=== PATIENT | male | born 1965 | race Caucasian/White ===

== ENCOUNTER → 2019-01-18 10:44 | Outpatient (CLI) | payer OTHER, SELFPAY ==
--- NOTE | 2019-01-18 | CA_ITS ---
APPROVED REPORT Exam: Pharmacologic Technologist: armen valenzuela, Ht: 6 ft 4 in Wt: 320 lbs BSA: 2.71 m2 HR: 88 bpm BP: 127/77 mmHg Indications: CP,SOB Medical History Medications: Isosorbide,,,,, Metoprolol,,,,, Asa,,,,, Losartan,,,,, Pantoprazole,,,,, Lasix,,,,, INSULIN,,,,, CloPIdogrel,,,,, Cyclobenzaprine,,,,, Nitro,,,,, Stagliptin,,,,, Ergocaliferol,,,,, Allergies: Benzapril, Simvastatin Stress Test Details Test: LEXISCAN HR Resting HR: 97 bpm Max Heart Rate (APMHR): 167 bpm Max HR Achieved: 113 bpm Target HR (85% APMHR): 141 bpm % of APMHR: 67 Recovery HR: 97 bpm BP Resting BP: 127/77 mmHg Max BP: 140/79 mmHg Recovery BP: 140.0/81.0 mmHg ECG Resting ECG: NSR Clinical Exercise duration: 04:00 min Highest Stage Achieved: Stress ECG Conclusion Lexiscan portion completed. Patient denied any complaints during peak infusion. Symptoms: NO complaints of any issues during peak infusion. Arrhythmias/Ectopy: Occ PVC. ST-T Changes: Less than 1.5mm ST Depression. Images to follow. Electronically signed by : Silver Hurtado, 01/22/2019 14:46:39
--- NOTE | 2019-01-18 10:47 | CA_ITS ---
[facility] RADIOLOGICAL CONSULTATION Patient Name : Alec Ramirez X-RAY # : [id number] Physician: KATY SHIELDS AGE: 53Y : 1965 00:00:00 ( M ) Exam : CA ECHO DOPPLER COMPLETE ACC # : [id number] Study Date : 01/18/2019 13:52:41 Patient Class : O FINAL REPORT CLINICAL DATA: FINDINGS: TRANSCRIBED REPORT EXAM: Comprehensive 2D, Doppler, and color-flow Echocardiogram Poll Clerk: Elena Collado CRT Ht: 6 ft 4 in Wt: 339lbs BSA: 2.77 BP: 137/84 mmHg Indications: Obesity, CAD, GERD, CABG, TDE, CP 2D Dimensions LVOT 1.99 cm (M/F) 1.5-2.5 M-Mode Dimensions RVDd 1.83 cm (0.9-2.6) LVDd 5.79 cm (3.5-5.7) LVDs 4.23 cm (3.5-5.7) IVSd 1.45 cm (0.6-1.1) PWd 0.57 cm (0.6-1.1) EF (Teich) 51.80% FS 26.90% EDV (Teich) 165.90 mL ESV (Teich) 79.90 mL LV Diastology E/A Ratio 0.68 Mitral Valve MV A Velocity 71.00 (40-130 cm/s) Electronically signed by : IMPRESSION: Dictated by at Transcribed by at
--- NOTE | 2019-01-18 10:50 | NM_ITS ---
APPROVED REPORT Exam: Nuclear Stress Test Indication: Chest pain, SOB, Fatigue, HTN, DM, CAD, CABG, High cholesterol, Tobacco use, Family history Patient Location: Outpatient Stress Tech: Alyssa ClarkeMohit [place] Tech:Jeanne Vega, ARRT, RT (R)(N) Ht: 6 ft 4 in Wt: 320 lbs HR: 88 bpm BP: 127/77 mmHg BSA: 2.71 m2 BMI: 38.9 History: Chest pain, SOB, Fatigue, HTN, DM, CAD, CABG, High cholesterol, Tobacco use, Family history Procedure: Patient received a 0.4 mg of intravenous Lexiscan, resting heart rate 88 bpm, resting blood pressure 127/77 mmHg, with Lexiscan maximum heart rate achived was 112 bpm which is % of the maximum predicted heart rate and blood pressure was 140/79 mmHg. With Lexiscan, patient denied any complaint of chest pain. Cardiac Stress and Resting SPECT Images: Cardiac Stress and Resting SPECT images were obtained using technetium 99m Myoview 32.1 mCi stress and 10.10 mCi at rest. Ejection fraction is low at 42% There is slight decrease activity within the apex on the stress images which becomes normal on the delayed images. No fixed defects are evident. Mild ischemic changes suspected at the apex. Conclusion: Ejection fraction is low at 42% There is slight decrease activity within the apex on the stress images which becomes normal on the delayed images. No fixed defects are evident. Mild ischemic changes suspected at the apex. Electronically signed by : Zechariah Mckeon MD 01/20/2019 15:59:43
--- NOTE | 2019-01-18 12:45 | HMH.ITSHM ---
Current Home Medications as stated by this patient Alec Ramirez or contact center representative. []JANUMET CYCLOBENZAPRINE DICLOFENAC CLOPIDOGREL VITAMIN D2 ATORVASTATIN ISOSORBIDE FUROSEMIDE JARDIANCE LOSARTAN METOPROLOL PANTOPRAZOLE SERTRALINE
== END ==
PROVIDERS: PCP Internal Medicine; Visit Provider Urology
DX: I20.9 Angina pectoris, unspecified (principal); R06.02 Shortness of breath; I25.10 Atherosclerotic heart disease of native coronary artery without angina pectoris; I11.9 Hypertensive heart disease without heart failure
CPT/HCPCS: 78452; 93017; 93306; A9502; J2785

== ENCOUNTER → 2019-10-18 14:37 | Outpatient (CLI) | payer OTHER, SELFPAY ==
[2019-10-18 15:06] LABS: Basophils # 0.1 K/mm3 (0-0.2); Basophils % 1.1 % (0.1-2.0); Eosinophils # 0.2 K/mm3 (0.0-0.4); Eosinophils % 2.7 % (0.1-12.0); Hematocrit 47.8 % (42.0-52.0); Hemoglobin 16.3 g/dL (14.1-18.0); Lymphocytes # 2.8 K/mm3 (0.7-4.5); Lymphocytes % 32.3 % (10-50); Mean Corpuscular HGB Conc 34.2 g/dL (31.8-35.4); Mean Corpuscular Hemoglobin 30.1 pg (27.0-31.2); Mean Platelet Volume 7.5 fl (7.4-10.4); Monocytes # 0.6 K/mm3 (0.1-1.0); Neutrophils # 4.8 K/mm3 (1.8-7.8); Neutrophils % 56.8 % (37.0-80.0); Platelet Count 246 K/mm3 (142-424); Red Blood Count 5.43 M/mm3 (4.60-6.20); Red Cell Distribution Width 13.5 % (11.5-17.5); White Blood Count 8.5 K/mm3 (4.8-10.8)
[2019-10-18 15:27] LABS: Chloride 103 mmol/L (98-107); Sodium 140 mmol/L (136-145)
[2019-10-18 15:28] LABS: Potassium 4.3 mmoL/L (3.5-5.1)
[2019-10-18 15:30] LABS: Blood Urea Nitrogen 22 mg/dl (9-20); Estimated Glomerular Filt Rate 78 ml/min (>60); GFR (African American) 94 ML/MIN (>60)
[2019-10-18 15:31] LABS: Anion Gap 13.3 mEq/L (5-15); Calcium 9.7 mg/dl (8.4-10.2); Carbon Dioxide 28 mmol/L (22.0-30.0); Glucose 106 mg/dl (74-100)
[2019-10-18 15:34] LABS: Troponin I < 0.01 ng/ml (0.00-0.034)
== END ==
PROVIDERS: Visit Provider Nurse Practitioner Family
DX: I20.9 Angina pectoris, unspecified (principal); R06.02 Shortness of breath; E78.2 Mixed hyperlipidemia; R94.31 Abnormal electrocardiogram [ECG] [EKG]; G47.33 Obstructive sleep apnea (adult) (pediatric); I11.9 Hypertensive heart disease without heart failure; I25.708 Atherosclerosis of coronary artery bypass graft(s), unspecified, with other forms of angina pectoris; R53.83 Other fatigue; Z95.5 Presence of coronary angioplasty implant and graft
CPT/HCPCS: 36415; 80048; 84484; 85025

== ENCOUNTER 2019-10-26 08:38 | Day surgery (SDC) | payer OTHER, SELFPAY ==
[2019-10-26] VITALS (13 sets, daily range): BP systolic 119–187; BP diastolic 42–108; PULSE 73–98; RESP 16–20; TEMP 36.6; O2SAT 89–98; BMI 42.8
[2019-10-26 09:36] LABS: Basophils # 0.1 K/mm3 (0-0.2); Chloride 102 mmol/L (98-107); Eosinophils # 0.2 K/mm3 (0.0-0.4); Eosinophils % 2.4 % (0.1-12.0); Hemoglobin 17.8 g/dL (14.1-18.0); Lymphocytes # 2.5 K/mm3 (0.7-4.5); Lymphocytes % 25.4 % (10-50); Mean Corpuscular HGB Conc 34.2 g/dL (31.8-35.4); Mean Corpuscular Hemoglobin 30.1 pg (27.0-31.2); Mean Corpuscular Volume 88.2 fl (80-94); Mean Platelet Volume 7.6 fl (7.4-10.4); Monocytes # 0.6 K/mm3 (0.1-1.0); Monocytes % 6.3 % (1.7-9.3); Neutrophils # 6.3 K/mm3 (1.8-7.8); Neutrophils % 64.9 % (37.0-80.0); Platelet Count 242 K/mm3 (142-424); Potassium 4.5 mmoL/L (3.5-5.1); Red Cell Distribution Width 13.4 % (11.5-17.5); Sodium 141 mmol/L (136-145); White Blood Count 9.7 K/mm3 (4.8-10.8)
[2019-10-26 09:39] LABS: Anion Gap 15.5 mEq/L (5-15); Blood Urea Nitrogen 25 mg/dl (9-20); Calcium 10.2 mg/dl (8.4-10.2); Carbon Dioxide 28 mmol/L (22.0-30.0); Creatinine Clearance Estimated 104 mL/min (50-200); Estimated Glomerular Filt Rate 78 ml/min (>60); GFR (African American) 94 ML/MIN (>60); Glucose 257 mg/dl (74-100)
--- NOTE | 2019-10-26 10:00 | IR_ITS ---
APPROVED REPORT Patient Location: Outpatient PROCEDURES Left heart catheterization Left ventriculogram Selective coronary angiogram Selective engagement of the left internal mammary artery Drug-eluting stent deployment to the mid dominant right coronary INDICATION Coronary artery disease, Angina pectoris class III and IV, History of coronary bypass surgery Informed consent was obtained prior to the procedure. COMPLICATIONS none Estimated Blood Loss: less than 10 mls TECHNIQUE One percent lidocaine used to anesthetize the right groin. The right femoral artery was accessed via the Seldinger technique and a 5 Mauritian sheath was placed in the right femoral artery. A JL 4, JR4 catheter were used to perform left heart catheterization, left ventriculogram selective coronary angiography as well as selective engagement of the left internal mammary artery. At the end of the diagnostic angiogram therapeutic heparin was administered and the 5 Mauritian sheath was exchanged for a 6 Mauritian sheath. A JR4 guide catheter was used to intubate the right coronary artery and a BMW wire was used to traverse the stenosis in the right coronary artery. A 4 mm x 26 mm resolute leilani stent was deployed at 15 sabrina reducing the severe stenosis to 0%. At the end of the procedure the apparatus was removed the groin was reprepped gloves were changed sheath was removed good hemostasis was achieved using Perclose device patient was transferred to the postop holding area stable condition. FLORENTINO-3 flow was present before and after the procedure ANGIOGRAPHIC RESULTS The left main artery Has an ostial 20% stenosis The left anterior descending artery Has proximal 10% luminal irregularities then occluded after large first diagonal artery The circumflex artery Is a nondominant vessel supplying 2 smaller obtuse marginal arteries. The vessel is widely patent The right coronary artery Is a large dominant vessel and has a stent in the proximal segment which is widely patent free of in-stent restenosis with excellent proximal transitioning followed by a 20% distal transitioning. A focal eccentric 70 to 80% stenosis is identified in the mid right coronary artery. The distal vessel was patent with mild to moderate atheromatous plaque. A stent in the distal right coronary artery is widely patent free of in-stent restenosis with excellent proximal distal transitioning The HARRISON ventriculogram reveals Mildly reduced at 45 to 50% The left ventricular end-diastolic pressure 10 mmHg The left internal mammary artery is patent but supplies a subtotally occluded vestigial LAD IMPRESSION Coronary disease as described above Successful stenting of the mid right coronary artery severe disease reduced to 0% with one drug-eluting stent Mildly reduced ejection fraction with normal LVEDP PLAN 1. Dual antiplatelet therapy 2. Risk factor modification 3. Avoidance of tobacco products 4. Cardiac rehabilitation 5. LDL less than 55 Electronically signed by : Silver Hurtado, 10/26/2019 14:37:25
[2019-10-26 14:15] LABS: CATHL Activated Clotting Time > 400 SEC (74-125)
--- NOTE | 2019-10-26 16:02 | HMH.PHACLD ---
Alec Ramirez has received discharge medication counseling on the following medications: PATIENT CURRENTLY ON ASPIRIN [address] DAILY, ATORVASTATIN 10 MG TABLET-5 MG DAILY, CLOPIDOGREL 75 MG DAILY, LOSARTAN 100 MG DAILY, AND METOPROLOL TARTATE 100 MG BID.
== END 2019-10-26 16:01 | disposition home or self-care (01) ==
LOC: CATHLAB 08:40
PROVIDERS: PCP Family Medicine; Visit Provider Internal Medicine
DX: I25.118 Atherosclerotic heart disease of native coronary artery with other forms of angina pectoris (principal); E78.2 Mixed hyperlipidemia; Z72.0 Tobacco use; G47.33 Obstructive sleep apnea (adult) (pediatric); I11.9 Hypertensive heart disease without heart failure; I25.708 Atherosclerosis of coronary artery bypass graft(s), unspecified, with other forms of angina pectoris; I42.9 Cardiomyopathy, unspecified; R94.31 Abnormal electrocardiogram [ECG] [EKG]; Z95.5 Presence of coronary angioplasty implant and graft
CPT/HCPCS: 80048; 85025; 85347; 92928; 93459; 99152; C1725; C1760; C1769; C1876; C1894; C9600; J1644; Q9967

== ENCOUNTER → 2021-06-29 07:21 | Outpatient (CLI) | payer OTHER, SELFPAY ==
--- NOTE | 2021-06-29 07:25 | CT_ITS ---
FINAL REPORT TECHNIQUE: Axial images through the abdomen and pelvis were performed without contrast.This study was performed with techniques to keep radiation doses as low as reasonably achievable, (ALARA). Individualized dose reduction techniques using automated exposure control or adjustment of mA and/or kV according to the patient's size were employed. CLINICAL HISTORY: RT FLANK PAIN,ABD PAIN for about a year. patients states doctors have been unsuccessful dx why he keeps having right sided abd/flank pain. hx of diabetes FINDINGS: ABDOMEN: Visualized lungs demonstrate mild right base atelectasis or scarring.. The heart size is normal. Limited images of the liver demonstrate fatty infiltration. The spleen is normal. No adrenal mass is identified. The aorta is normal in caliber. There is no significant free fluid or adenopathy. There is no nephrolithiasis. There is no hydronephrosis. There is a small umbilical hernia containing fat. PELVIS: The appendix is normal. The urinary bladder is unremarkable. There is no significant free fluid or adenopathy. IMPRESSION: No hydronephrosis or nephrolithiasis. Fatty infiltration of the liver. Reviewed, Interpreted and Dictated by Vinod Fernandez III, MD Transcribed by Leeann Castorena Authenticated by Vinod Fernandez III, MD on 06/29/2021 09:06:53 AM [facility]
== END ==
LOC: RAD 07:21
PROVIDERS: PCP Family Medicine; Visit Provider Family Medicine
DX: R10.9 Unspecified abdominal pain (principal)
CPT/HCPCS: 74176

== ENCOUNTER 2021-07-02 06:58 | Day surgery (SDC) | payer OTHER, SELFPAY ==
[2021-07-02] VITALS (8 sets, daily range): BP systolic 126–169; BP diastolic 74–100; PULSE 101–113; RESP 18–20; TEMP 37.1; O2SAT 92–96; BMI 39.0
--- NOTE | 2021-07-02 | IR_ITS ---
APPROVED REPORT Patient Location: Outpatient Supervisor Park Workers: CINTHIA Jose RT (R) PROCEDURES Left heart catheterization Left ventriculogram Selective coronary angiogram Selective left internal mammary angiography INDICATION Coronary artery disease, Abnormal EKG, Accelerated angina pectoris, Worsening dyspnea Informed consent was obtained prior to the procedure. COMPLICATIONS None Estimated Blood Loss: Less than 10 mls TECHNIQUE One percent lidocaine used to anesthetize the right groin. The right femoral artery was accessed via the Seldinger technique and a 5 Cymraes sheath was placed in the right femoral artery. A JL4 JR4 and REARDON catheters were used to perform left heart catheterization left ventriculogram as well as selective engagement left internal mammary artery. At the end the procedure the apparatus was removed the patient was transferred the postop putting a stable condition for sheath removal ANGIOGRAPHIC RESULTS The left main artery Normal The left anterior descending artery Has proximal 10 to 20% stenoses followed by a 50% stenosis and then occluded after the first diagonal artery. The circumflex artery Is nondominant and gives rise to 2 small terminal obtuse marginal arteries. The circumflex artery has distal 30 to 40% stenoses The right coronary artery Is a large dominant vessel and has proximal to mid vessel 30% stenosis followed by a distal stent which is widely patent free of in-stent restenosis with excellent proximal distal transitioning. Posterior lateral branch has a proximal 40% stenosis The HARRISON ventriculogram reveals Preserved ejection fraction estimated at 60% The left ventricular end-diastolic pressure 10 mmHg REARDON graft is widely patent to distal LAD. The LAD itself is small to moderate in size IMPRESSION Adequate coronary revascularization Preserved ejection fraction Normal left ventricular end-diastolic pressure PLAN 1. Patient symptoms are almost certainly stemming from pulmonary etiologies. Patient is polycythemic and likely has advanced sleep apnea 2. Recommend sleep study 3. Referral to Dr. Ortiz and Dr. Ryder 4. Weight loss and exercise 5. Increase beta-blockers for tachycardia which is likely pulmonary in etiology Electronically signed by : Silver Hurtado MD 07/02/2021 10:03:29
[2021-07-02 07:10] LABS: Coronavirus 19, PCR Not Detected (NotDetected); Influenza A, PCR Not Detected (NotDetected); Influenza B, PCR Not Detected (NotDetected)
[2021-07-02 07:20] LABS: Basophils # 0.2 K/mm3 (0-0.2); Basophils % 1.8 % (0.1-2.0); Eosinophils # 0.2 K/mm3 (0.0-0.4); Eosinophils % 2.1 % (0.1-12.0); Hemoglobin 17.4 g/dL (14.1-18.0); Lymphocytes # 2.7 K/mm3 (0.7-4.5); Lymphocytes % 31.6 % (10-50); Mean Corpuscular HGB Conc 33.4 g/dL (31.8-35.4); Mean Corpuscular Hemoglobin 30.1 pg (27.0-31.2); Mean Corpuscular Volume 90.3 fl (80-94); Mean Platelet Volume 8.2 fl (7.4-10.4); Monocytes # 0.6 K/mm3 (0.1-1.0); Monocytes % 6.5 % (1.7-9.3); Neutrophils # 4.9 K/mm3 (1.8-7.8); Neutrophils % 58.1 % (37.0-80.0); Platelet Count 234 K/mm3 (142-424); Red Blood Count 5.76 M/mm3 (4.60-6.20); Red Cell Distribution Width 13.6 % (11.5-17.5); White Blood Count 8.5 K/mm3 (4.8-10.8)
[2021-07-02 07:29] LABS: Chloride 104 mmol/L (98-107); Potassium 4.7 mmoL/L (3.5-5.1); Sodium 137 mmol/L (136-145)
[2021-07-02 07:32] LABS: Anion Gap 11.7 mEq/L (5-15); Blood Urea Nitrogen 26 mg/dl (9-20); Carbon Dioxide 26 mmol/L (22.0-30.0); Creatinine Clearance Estimated 170 mL/min (50-200); Estimated Glomerular Filt Rate 77 ml/min (>60); GFR (African American) 94 ML/MIN (>60); Glucose 330 mg/dl (74-100)
[2021-07-02 07:33] LABS: Calcium 9.5 mg/dl (8.4-10.2)
== END 2021-07-02 13:42 | disposition home or self-care (01) ==
PROVIDERS: Physician Assistant; PCP Family Medicine; Visit Provider Internal Medicine
DX: I25.110 Atherosclerotic heart disease of native coronary artery with unstable angina pectoris (principal); I25.700 Atherosclerosis of coronary artery bypass graft(s), unspecified, with unstable angina pectoris; E11.9 Type 2 diabetes mellitus without complications; Z79.4 Long term (current) use of insulin; Z20.822 Contact with and (suspected) exposure to COVID-19; Z79.899 Other long term (current) drug therapy; I11.9 Hypertensive heart disease without heart failure; Z95.1 Presence of aortocoronary bypass graft; F17.210 Nicotine dependence, cigarettes, uncomplicated
CPT/HCPCS: 36415; 80048; 85025; 93459; 99152; C1725; C1769; C1894; C9803; J1644; Q9967; U0003; U0005

== ENCOUNTER → 2022-11-27 09:02 | Outpatient (CLI) | payer BC, SELFPAY ==
[2022-11-27 09:30] LABS: Basophils # 0.1 K/mm3 (0-0.2); Basophils % 1.3 % (0.1-2.0); Eosinophils # 0.2 K/mm3 (0.0-0.4); Eosinophils % 2.5 % (0.1-12.0); Hematocrit 52.9 % (42.0-52.0); Hemoglobin 17.5 g/dL (14.1-18.0); Lymphocytes # 2.5 K/mm3 (0.7-4.5); Lymphocytes % 30.3 % (10-50); Mean Corpuscular HGB Conc 33.1 g/dL (31.8-35.4); Mean Corpuscular Hemoglobin 29.6 pg (27.0-31.2); Mean Corpuscular Volume 89.3 fl (80-94); Mean Platelet Volume 8.5 fl (7.4-10.4); Monocytes # 0.5 K/mm3 (0.1-1.0); Monocytes % 6.4 % (1.7-9.3); Neutrophils # 4.8 K/mm3 (1.8-7.8); Neutrophils % 59.5 % (37.0-80.0); Platelet Count 223 K/mm3 (142-424); Red Blood Count 5.93 M/mm3 (4.60-6.20); Red Cell Distribution Width 13.2 % (11.5-17.5); White Blood Count 8.1 K/mm3 (4.8-10.8)
[2022-11-27 10:04] LABS: Alanine Aminotransferase 29 U/L (12-78); Albumin Level 4.5 g/dl (3.5-5.0); Alkaline Phosphatase 128 U/L (38-126); Anion Gap 15.1 mEq/L (5-15); Aspartate Amino Transferase 25 U/L (17-59); Bilirubin,Direct 0.1 mg/dl (0.0-0.4); Bilirubin,Indirect 0.5 mg/dL (0.0-0.9); Bilirubin,Total 0.6 mg/dl (0.2-1.3); Bilirubin,Unconjugated 0.4 mg/dL (0.0-1.1); Blood Urea Nitrogen 24 mg/dl (9-20); Calcium 10.1 mg/dl (8.4-10.2); Carbon Dioxide 26 mmol/L (22.0-30.0); Chloride 102 mmol/L (98-107); Chol/HDL Ratio 5.9 (1-3.5); Cholesterol 231 mg/dl (140-200); Estimated Glomerular Filt Rate 77 ml/min (>60); GFR (African American) 93 ML/MIN (>60); Glucose 290 mg/dl (74-100); HDL Cholesterol 39 mg/dl (40-60); Potassium 5.1 mmoL/L (3.5-5.1); Sodium 138 mmol/L (136-145); Total Protein,Serum 7.3 g/dl (6.3-8.2); Triglycerides 359 mg/dl (30-150); VLDL Cholesterol 72 mg/dL (0-40)
[2022-11-27 10:15] LABS: Direct LDL Cholesterol 133.86 mg/dL (100-129)
[2022-11-27 10:21] LABS: Free T4 (Free Thyroxine) 1.07 ng/dl (0.78-2.19)
[2022-11-27 10:35] LABS: Thyroid Stimulating Hormone 2.37 uIU/mL (0.465-4.68)
== END ==
PROVIDERS: Visit Provider Nurse Practitioner
DX: R06.00 Dyspnea, unspecified (principal); I25.10 Atherosclerotic heart disease of native coronary artery without angina pectoris; I11.9 Hypertensive heart disease without heart failure; I42.9 Cardiomyopathy, unspecified; E78.5 Hyperlipidemia, unspecified; I63.9 Cerebral infarction, unspecified; E11.9 Type 2 diabetes mellitus without complications; Z79.4 Long term (current) use of insulin; Z95.5 Presence of coronary angioplasty implant and graft
CPT/HCPCS: 36415; 80048; 80061; 80076; 84439; 84443; 85025

== ENCOUNTER 2023-04-28 13:22 | Outpatient (CLI) | payer MEDICARE, SELFPAY ==
--- NOTE | 2023-04-28 13:27 | CA_ITS ---
APPROVED REPORT EXAM: Comprehensive 2D, Doppler, and color-flow Echocardiogram Wood Boat Builder Supervisor: Sravani Ferreira RT(R) Ht: 6 ft 4 in Wt: 317lbs BSA: 2.69 BP: 144/88 mmHg Indications: SOB, CP, smoker, fatigue, HTN, hyperlipidemia, hx CM, numbness left arm, CAD, hx CABG, obesity Echo Enhancing Agent Indication: Endocardial border delineation Agent(s) / Amount(s) Used: Definity 2 cc 2D Dimensions Left Atrium 3.67 cm M: 3.0 - 4.0 LA Volume 38.70 mL LVOT 2.01 cm (M/F) 1.5-2.5 LA Volume Index 14.33 mL/m2 (M/F) 16-34 M-Mode Dimensions RVDd 2.80 cm (0.9-2.6) LVDd 5.21 cm (3.5-5.7) Ao Diam 2.95 cm (2.0-3.7) LVDs 4.08 cm (3.5-5.7) IVSd 1.40 cm (0.6-1.1) PWd 0.92 cm (0.6-1.1) EF (Teich) 43.60% FS 21.70% EDV (Teich) 130.10 mL ESV (Teich) 73.40 mL LV Diastology E Decel Time 150 (160-240 msec) E/A Ratio 0.6 MED E' 7.9 (>= 7 cm/sec) E'/MED E' Ratio 6.61 (<= 14) LAT E' 7.8 (>= 10 cm/sec) E/LAT E' Ratio 6.69 (<= 14) Mitral Valve MV E Max Gunnar. 52.0 (40-130 cm/s) MV A Velocity 84.0 (40-130 cm/s) E/A Ratio 0.62 MV Decel. Time 150 (160-240 ms) Left Ventricle The left ventricle is normal size. The left ventricular systolic function is normal. The left ventricular ejection fraction is within the normal range. There is increased LV wall thickness. There is normal LV segmental wall motion. Transmitral Doppler flow pattern suggests impaired LV relaxation. No left ventricle thrombus noted on this study. LVEF is 55%. Right Ventricle The right ventricle is normal size. The right ventricular systolic function is normal. Atria The left atrium size is normal. The right atrium size is normal. There is no Doppler evidence of interatrial shunt. Aortic Valve The aortic valve is mildly thickened. There is no aortic valvular stenosis. Trace aortic regurgitation. Mitral Valve The mitral valve leaflets are mildly thickened. No evidence of mitral valve stenosis. Trace mitral regurgitation. Tricuspid Valve The tricuspid valve leaflets are thin and pliable. Trace tricuspid regurgitation. There is insufficient TR jet to estimate RVSP. Pulmonic Valve The pulmonary valve is normal in structure. Trace pulmonic regurgitation. Great Vessels The aortic root is not well-visualized. IVC is normal in size and collapses >50% with inspiration. Pericardium There is no pericardial effusion. Other Information Study Quality: Technically Difficult Conclusion Technically difficult study due to poor acoustic windows. Normal biventricular systolic function. No significant valvular stenosis or regurgitation. Electronically signed by : Mya Boles MD 04/28/2023 22:35:04
[2023-04-28] MEDS: DEFINITY US ECHO CONTRAST 2ML INJ 2 MG IV (14:26)
[2023-04-28 14:41] LABS: Basophils # 0.1 K/mm3 (0-0.2); Lymphocytes # 2.7 K/mm3 (0.7-4.5)
[2023-04-28 14:47] LABS: Basophils % 0.9 % (0.1-2.0); Eosinophils # 0.2 K/mm3 (0.0-0.4); Eosinophils % 1.8 % (0.1-12.0); Hematocrit 52.8 % (42.0-52.0); Lymphocytes % 26.8 % (10-50); Mean Corpuscular HGB Conc 34.5 g/dL (31.8-35.4); Mean Corpuscular Hemoglobin 30.6 pg (27.0-31.2); Mean Corpuscular Volume 88.8 fl (80-94); Mean Platelet Volume 8.2 fl (7.4-10.4); Monocytes # 0.6 K/mm3 (0.1-1.0); Monocytes % 6.1 % (1.7-9.3); Neutrophils # 6.6 K/mm3 (1.8-7.8); Neutrophils % 64.3 % (37.0-80.0); Platelet Count 234 K/mm3 (142-424); Red Blood Count 5.94 M/mm3 (4.60-6.20); White Blood Count 10.2 K/mm3 (4.8-10.8)
[2023-04-28 14:48] LABS: Hemoglobin 18.2 g/dL (14.1-18.0)
[2023-04-28 15:15] LABS: Chloride 102 mmol/L (98-107); Potassium 4.6 mmoL/L (3.5-5.1); Sodium 137 mmol/L (136-145)
[2023-04-28 15:17] LABS: Alanine Aminotransferase 29 U/L (12-78); Albumin Level 4.7 g/dl (3.5-5.0); Alkaline Phosphatase 99 U/L (38-126); Anion Gap 11.6 mEq/L (5-15); Aspartate Amino Transferase 29 U/L (17-59); Bilirubin,Direct 0.2 mg/dl (0.0-0.4); Bilirubin,Indirect 0.7 mg/dL (0.0-0.9); Bilirubin,Total 0.9 mg/dl (0.2-1.3); Bilirubin,Unconjugated 0.7 mg/dL (0.0-1.1); Blood Urea Nitrogen 20 mg/dl (9-20); Carbon Dioxide 28 mmol/L (22.0-30.0); Cholesterol 205 mg/dl (140-200); Estimated Glomerular Filt Rate 77 ml/min (>60); GFR (African American) 93 ML/MIN (>60); Total Protein,Serum 7.7 g/dl (6.3-8.2)
[2023-04-28 15:18] LABS: Calcium 10.7 mg/dl (8.4-10.2); Glucose 213 mg/dl (74-100); HDL Cholesterol 34 mg/dl (40-60); Triglycerides 409 mg/dl (30-150)
[2023-04-28 15:29] LABS: Direct LDL Cholesterol 110.34 mg/dL (100-129)
[2023-04-28 15:34] LABS: Free T4 (Free Thyroxine) 1.03 ng/dl (0.78-2.19)
[2023-04-28 15:49] LABS: Thyroid Stimulating Hormone 1.85 uIU/mL (0.465-4.68)
== END 2023-04-28 23:59 ==
LOC: RT 13:24
PROVIDERS: Visit Provider Nurse Practitioner
DX: R06.00 Dyspnea, unspecified; Z95.5 Presence of coronary angioplasty implant and graft; I20.89 Other forms of angina pectoris; I42.8 Other cardiomyopathies; R94.31 Abnormal electrocardiogram [ECG] [EKG]
CPT/HCPCS: 36415; 80048; 80061; 80076; 83735; 84439; 84443; 85025; 93306; Q9957

== ENCOUNTER 2023-05-09 08:27 | Day surgery (SDC) | payer MEDICARE, SELFPAY ==
[2023-05-09] VITALS (15 sets, daily range): BP systolic 104–165; BP diastolic 58–105; PULSE 74–90; RESP 12–20; TEMP 36.6; O2SAT 93–99; BMI 38.5
--- NOTE | 2023-05-09 07:16 | IR_ITS ---
APPROVED REPORT Patient Location: Outpatient Mirror Installer: CINTHIA Jose RT (R) PROCEDURES Selective coronary angiogram Selective engagement of the left internal mammary artery Drug-eluting stent deployment to the proximal mid and distal dominant right coronary artery in a contiguous manner Drug-eluting stent deployment to the distal circumflex artery INDICATION Accelerated angina pectoris, Coronary artery disease Informed consent was obtained prior to the procedure. COMPLICATIONS None Estimated Blood Loss: Less than 10 mls TECHNIQUE One percent lidocaine was used to anesthetize the right groin. The right femoral artery was accessed via the Seldinger technique. A 5-Setswana sheath was placed in the right femoral artery. A JL 4 and REARDON catheter were used to perform selective coronary angiography as well as selective engagement of left internal mammary artery. At the end of the diagnostic angiogram therapeutic heparin was administered giving a therapeutic ACT and a JR4 guide catheter was placed in the right coronary artery. A 4 mm x 38 mm Jarad frontier stent was placed in the proximal to mid right coronary artery and deployed at 24 sabrina. An additional 4 mm x 34 mm Jarad frontier stent was placed distal to the for stent yet still overlapping and deployed at 20 sabrina. A 5 mm x 12 mm and a 5 mm x 15 mm balloon were placed throughout the stent and deployed at 24 sabrina to post dilate the under deployed areas. The entire 4 mm stent both 38 and 34 mm stents were postdilated with a 5 mm balloon at 24 sabrina. After achieving excellent angiograph results the apparatus was removed the groin was reprepped closure change sheath was removed and hemostasis was achieved using Perclose device patient was transferred to the postop holding in stable condition ANGIOGRAPHIC RESULTS The left main artery Has an ostial 10 to 20% stenosis with distal 10% stenosis The left anterior descending artery Is proximally patent and then occluded after a medium sized first diagonal artery. The first diagonal artery has diffuse 30 to 40% stenoses The circumflex artery Is a nondominant yet still large vessel. First obtuse marginal artery is proximally subtotally occluded and fills mostly via left to left collaterals. The terminal obtuse marginal artery has a focal concentric 99% stenosis accompanied by FLORENTINO II flow distal to this stenosis The right coronary artery Right coronary is dominant has a proximal concentric 80% stenosis mid vessel 50% stenosis and a distal concentric 80% stenosis all representing in-stent restenosis. The posterior lateral branch has an ostial 60% stenosis in the mid vessel 70% stenosis. A large posterior descending artery has a mid vessel 40% stenosis REARDON to LAD widely patent IMPRESSION Severe disease in the proximal and mid to distal right coronary artery with successful reconstruction of the proximal mid and distal segment with 2 drug-eluting stents postdilated with 5 mm high-pressure balloons reducing the stenoses to 0% Severe stenosis in the distal circumflex artery with successful stenting reducing a critical 99% stenosis to 0% improving FLORENTINO II flow to FLORENTINO-3 flow. Persistent subtotal occlusion of a trifurcating first obtuse marginal artery network which mostly fills via left to left collaterals Patent REARDON to LAD PLAN 1. Dual antiplatelet therapy 2. I am hesitant to open the first obtuse marginal artery system although it is a moderate size vessel with 3 small to medium sized obtuse marginal arteries. It is likely this vessel is collateralized and probably not the etiology of patient's angina. If patient continues to experience angina after this procedure he can be brought back to the Process Assistant and undergo radial artery access and then open the subtotally occluded first obtuse marginal artery. 3. Aggressive risk factor modification 4. LDL less than 55 to be achieved with high intensity statin 5. Cardiac rehabilitation Electronically signed by : Silver Hurtado MD 05/09/2023 10:06:30
[2023-05-09 09:01] LABS: Basophils # 0.1 K/mm3 (0-0.2); Basophils % 0.7 % (0.1-2.0); Eosinophils # 0.2 K/mm3 (0.0-0.4); Eosinophils % 2.3 % (0.1-12.0); Hematocrit 50.2 % (42.0-52.0); Hemoglobin 17.2 g/dL (14.1-18.0); Lymphocytes # 2.6 K/mm3 (0.7-4.5); Lymphocytes % 26.1 % (10-50); Mean Corpuscular HGB Conc 34.3 g/dL (31.8-35.4); Mean Corpuscular Hemoglobin 31.1 pg (27.0-31.2); Mean Corpuscular Volume 90.8 fl (80-94); Mean Platelet Volume 7.9 fl (7.4-10.4); Monocytes # 0.6 K/mm3 (0.1-1.0); Monocytes % 5.5 % (1.7-9.3); Neutrophils # 6.5 K/mm3 (1.8-7.8); Neutrophils % 65.3 % (37.0-80.0); Platelet Count 223 K/mm3 (142-424); Red Blood Count 5.53 M/mm3 (4.60-6.20); Red Cell Distribution Width 13.1 % (11.5-17.5)
[2023-05-09 09:04] LABS: Chloride 104 mmol/L (98-107); Sodium 138 mmol/L (136-145)
[2023-05-09 09:05] LABS: Potassium 4.6 mmoL/L (3.5-5.1)
[2023-05-09] MEDS: diphenhydrAMINE 50MG/ML VIAL 50 MG IV (09:07)
[2023-05-09] MEDS: HEPARIN 1,000 UNITS/500ML NS (CATH LAB) 3000 UNIT IV (09:07)
[2023-05-09] MEDS: LIDOCAINE 1% 10ML MDV 20 ML IJ (09:07)
[2023-05-09] MEDS: 0.9 % SODIUM CHLORIDE 500 ML 25 ML IV (09:07)
[2023-05-09 09:08] LABS: Anion Gap 10.6 mEq/L (5-15); Blood Urea Nitrogen 21 mg/dl (9-20); Calcium 9.9 mg/dl (8.4-10.2); Carbon Dioxide 28 mmol/L (22.0-30.0); Creatinine Clearance Estimated 164 mL/min (50-200); Estimated Glomerular Filt Rate 77 ml/min (>60); GFR (African American) 93 ML/MIN (>60); Glucose 312 mg/dl (74-100)
[2023-05-09] MEDS: MIDAZOLAM HCL 1MG/1ML 5ML VIAL 1 MG IV (09:12)
[2023-05-09] MEDS: FENTANYL 100MCG/2ML VIAL 50 MCG IV (09:12)
[2023-05-09] MEDS: HEPARIN 1,000 UNITS/ML 10ML VIAL (CATH LAB) 10000 UNIT IV (09:25)
[2023-05-09] MEDS: IOPAMIDOL-370 (76%);100ML BOTTLE 120 ML IV (14:02)
[2023-05-09 14:05] LABS: CATHL Activated Clotting Time 328 SEC (74-125)
== END 2023-05-09 13:44 | disposition home or self-care (01) ==
PROVIDERS: Visit Provider Internal Medicine
DX: I25.118 Atherosclerotic heart disease of native coronary artery with other forms of angina pectoris; I25.810 Atherosclerosis of coronary artery bypass graft(s) without angina pectoris; I42.9 Cardiomyopathy, unspecified; R06.00 Dyspnea, unspecified; Z95.5 Presence of coronary angioplasty implant and graft; F17.210 Nicotine dependence, cigarettes, uncomplicated; Z79.4 Long term (current) use of insulin; Z79.899 Other long term (current) drug therapy; E11.9 Type 2 diabetes mellitus without complications; T82.855A Stenosis of coronary artery stent, initial encounter
CPT/HCPCS: 80048; 85025; 85347; 92928; 93455; 99152; 99153; C1725; C1760; C1769; C1876; C1894; C9600; J1644; Q9967

== ENCOUNTER 2023-05-14 09:39 | Outpatient (CLI) | payer MEDICARE, SELFPAY ==
[2023-05-14 10:19] LABS: Basophils % 0.5 % (0.1-2.0); Eosinophils # 0.3 K/mm3 (0.0-0.4); Eosinophils % 2.7 % (0.1-12.0); Hemoglobin 15.8 g/dL (14.1-18.0); Lymphocytes # 2.4 K/mm3 (0.7-4.5); Lymphocytes % 25.7 % (10-50); Mean Corpuscular HGB Conc 33.7 g/dL (31.8-35.4); Mean Corpuscular Hemoglobin 30.9 pg (27.0-31.2); Mean Corpuscular Volume 91.8 fl (80-94); Mean Platelet Volume 7.2 fl (7.4-10.4); Monocytes # 0.6 K/mm3 (0.1-1.0); Neutrophils # 6.2 K/mm3 (1.8-7.8); Neutrophils % 65.1 % (37.0-80.0); Platelet Count 230 K/mm3 (142-424); Red Blood Count 5.12 M/mm3 (4.60-6.20); White Blood Count 9.5 K/mm3 (4.8-10.8)
[2023-05-14 10:42] LABS: Chloride 104 mmol/L (98-107)
[2023-05-14 10:43] LABS: Potassium 4.7 mmoL/L (3.5-5.1); Sodium 136 mmol/L (136-145)
[2023-05-14 10:46] LABS: Anion Gap 7.7 mEq/L (5-15); Blood Urea Nitrogen 24 mg/dl (9-20); Calcium 9.9 mg/dl (8.4-10.2); Carbon Dioxide 29 mmol/L (22.0-30.0); Estimated Glomerular Filt Rate 87 ml/min (>60); GFR (African American) 105 ML/MIN (>60); Glucose 259 mg/dl (74-100)
== END 2023-05-14 23:59 ==
LOC: LAB 09:40
PROVIDERS: Visit Provider Internal Medicine
DX: I25.10 Atherosclerotic heart disease of native coronary artery without angina pectoris (principal)
CPT/HCPCS: 36415; 80048; 85025

== ENCOUNTER 2024-08-30 08:22 | Outpatient (CLI) | payer MEDICARE, SELFPAY ==
--- OUTSIDE RECORDS SUMMARY | 2024-08-30 08:27 | XMS_ITS | Continuity of Care Document ---
Author Organization [facility] Address 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 Plan of Treatment Reminders Order Date Submit Date Provider Last Modified By Organization Details Last Modified Time Details Appointments None recorded. Lab HbA1c (hemoglobi n A1c), blood 2024 025 [email or web address] [facility], [address], [place], [address], 5 08:43:34 BMP, serum or plasma 2024 025 [place], [address], [place], [place], [address], 5 06:41:00 microalbum in/creatin ine, mass ratio, urine 2024 025 [place] [facility], [address], [place], [address], 5 08:52:02 CBC w/ auto diff 2024 025 [place], [address], [place] [address], [place], [address], 5 06:40:59 lipid panel, serum 2024 025 SATSUMA [facility], [address], [place] [address], [place], [address], 06:41:01 Referral None recorded. Procedures None recorded. Surgeries None recorded. Imaging None recorded. Medication Orders Mucinex 600 mg tablet, extended release 2024 025 [facility], [address], [place], [address], 5 08:44:43 Delsym 12 hour 30 mg/5 mL oral suspension ,extended release 2024 025 [facility], [address], [place], [address], 5 08:44:44 amoxicilli n 875 mg-potassi um clavulanat e 125 mg tablet 2024 025 [facility], [address], [place], [address], 5 05:01:28 Humalog KwikPen U-200 Insulin 200 unit/mL (3 mL) [facility] 2024 025 [facility], [address], [place], [address], 5 08:43:35 Patient TargetsNo targets recorded. Patient InstructionsNo instructions recorded. Reason for Referral None Reported. Results Created Date Observation Date Name Description Value Unit Range Abnormal Flag Note LastModifiedBy Organization Detail LastModifiedTime 08/03/1908/02/2024 micro album in/cr eatin ine, mass ratio , urine Microalbumin 80 Not Available [facility] [address], [place], [address], 08/02/2024 08:46:06 05/12/20 25 08/02/2024 micro album in/cr eatin ine, mass ratio , urine Creatinine 50 Not Available [facility] [address], [place], [address], 08/02/2024 08:46:06 08/03/19 25 08/02/2024 micro album in/cr eatin ine, mass ratio , urine Ratio >[address] [facility] [address], [place], [address], 08/02/2024 08:46:06 08/03/1908/02/2024 HbA1c (hemo globi n A1c), blood HbA1C 9.8 % Not Available [facility] [address], [place], [address], 08/02/2024 08:24:46 Result Notes None recorded. 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 Procedures Surgical History Date Name Laterality Status Provider Name and Address Organization Details Recorded Time 01/13/20 Advance Care Planning completed Natalia Camargo [place] - [facility] 01/13/2024 10:52:03 01/13/20 Functional Status Assessed completed Natalia Camargo [place] - [facility] 024 10:52:03 01/01/20 A1C level 7.0 to 7.9 completed Analia Burr [place] - [facility] 12/31/2021 09:01:48 10/02/19 A1C level 7.0 to 7.9 completed Analia Ndiayee [place] - [facility] 10/01/2021 08:51:59 07/20/19 A1C level 9.1 and above completed Analia Ndiayee [place] - [facility] 07/19/2021 13:28:30 05/29/19 A1C level 9.1 and above completed Analia Ndiayee [place] - [facility] 05/28/2021 14:15:47 10/03/19 A1C level 9.1 and above completed Analia Ndiayee [place] - [facility] 10/02/2020 15:46:38 01/07/20 Systolic B/P less than 130 mm Hg completed Analia Ndiayee [place] - [facility] 01/07/2020 15:58:50 01/07/20 20 Diastolic B/P 80-89 mm Hg completed Analia Ndiayee [place] - [facility] 01/07/2020 15:58:53 01/07/20 A1C level 7.0 to 7.9 completed Analia Ndiayee [place] - [facility] 01/07/2020 15:58:33 12/10/19 20 Diastolic B/P 80-89 mm Hg completed Analia Ndiayee [place] - [facility] 12/10/2019 15:54:02 12/10/19 20 Systolic B/P 130-139 mm Hg completed Analia Ndiayee [place] - [facility] 12/10/2019 15:54:00 11/05/19 20 Diastolic B/P 80-89 mm Hg completed Analia Ndiayee [place] [facility] 11/05/2019 15:45:06 11/05/19 20 Systolic B/P 130-139 mm Hg completed Analia Burr [place] - [facility] 11/05/2019 15:45:04 11/03/19 20 Cardiac Cath completed Analia Burr [place] - [facility] 11/05/2019 15:51:58 10/04/19 20 Diastolic B/P 80-89 mm Hg completed Analia Burr [place] - [facility] 10/04/2019 11:28:20 10/04/19 20 Systolic B/P 130-139 mm Hg completed Analia Burr [place] [facility] 10/04/2019 11:28:16 09/17/19 20 Diastolic B/P 80-89 mm Hg completed Analia Burr [place] [facility] 09/17/2019 14:19:39 09/17/19 20 Systolic B/P 130-139 mm Hg completed Analia Burr [place] [facility] 09/17/2019 14:19:36 09/14/19 20 Systolic B/P less than 130 mm Hg completed Analia Burr [place] [facility] 09/14/2019 09:30:59 09/14/19 20 Diastolic B/P less than 80 mm Hg completed Analia Burr [place] [facility] 09/14/2019 09:31:01 09/06/19 20 Systolic B/P less than 130 mm Hg completed Analia Burr [place] [facility] 09/06/2019 15:50:09 09/06/19 20 Diastolic B/P less than 80 mm Hg completed Analia Burr [place] [facility] 09/06/2019 15:50:12 07/16/19 20 Diastolic B/P less than 80 mm Hg completed Mellisarosa elena Moreno [place] - [facility] 07/16/2019 15:53:17 07/16/19 20 Systolic B/P 130-139 mm Hg completed Mellisa Mahanman [place] - [facility] 07/16/2019 15:53:13 04/05/19 20 Systolic B/P less than 130 mm Hg completed Analia Burr [place] [facility] 04/05/2019 14:16:47 04/05/19 20 Diastolic B/P 80-89 mm Hg completed Analia Burr [place] - [facility] 04/05/2019 14:16:49 01/12/20 19 Diastolic B/P 80-89 mm Hg completed Analia Burr [place] - [facility] 01/11/2019 16:27:51 01/12/20 19 Systolic B/P greater than or equal to 140 mm Hg completed Analia [place]r [place] [facility] 01/11/2019 16:27:47 12/19/19 19 Diastolic B/P greater than or equal to 90 mm Hg completed Analia [place]r [place] [facility] 12/18/2018 11:10:57 12/19/19 19 Systolic B/P greater than or equal to 140 mm Hg completed Analia Burr [place] [facility] 12/18/2018 11:11:05 12/05/19 19 Diastolic B/P greater than or equal to 90 mm Hg completed Fatoumata Sneed [place] - [facility] 12/04/2018 08:58:30 12/05/19 19 Systolic B/P 130-139 mm Hg completed Fatoumata Sneed [place] - [facility] 12/04/2018 08:58:19 11/13/19 17 Colonoscopy completed Jay Cesar RN [address], [place], [address], [facility] - [facility] 04/13/2018 09:58:41 CABG completed Carolina Sosa [facility] 1 04/02/2015 08:36:22 biopsy of prostate completed Sravani Montez RN [address], [place], [address], [facility] - [facility] 03/09/2019 14:21:52 Imaging Results None recorded. Procedure Notes None recorded. Medical Equipment None Reported. Allergies No known drug allergies Medications Name Sig Start Date Stop Date Status Note LastModified by Organization Details LastModified Time Prescript ion - Prior Authoriza tion Request active Not Available Not Available Not Available cyclobenz aprine 10 mg tablet TAKE ONE (1) TABLET BY MOUTH THREE (3) TIMES DAILY active Not Available Not Available No t Available amoxicill in 500 mg capsule 07/01 completed Not Available Not Available Not Available furosemid e 40 mg tablet TAKE ONE (1) TABLET BY MOUTH TWICE DAILY FOR FLUID 01/12 completed Not Available Not Available Not Available metformin 500 mg tablet take 1 tablet (500 mg) by oral route 2 times per day with morning and evening meals 09/29 completed metformi n 500 mg oral tablet;R ecorded Status: Recorded on: 11/18/19 13 1:46PM;D iscontin ued Status: Disconti nued on: 09/30/19 14 2:59PM;U ser: reeda;In dication : Type 2 Diabetes Mellitus - () Not Available Not Available Not Available atorvasta tin 80 mg tablet take 1 tablet (80 mg) by oral route once daily 05/19 completed atorvast atin 80 mg oral tablet;R ecorded Status: Recorded on: 04/21/19 15 9:01AM;D iscontin ued Status: Disconti nued on: 05/19/19 15 10:45AM; User: jeanine Not Available Not Available Not Available gabapenti n 600 mg tablet TAKE 1 TABLET BY MOUTH EVERY DAY 07/29 completed Not Available Not Available Not Available ipratropi um 0.5 mg-albute rol 3 mg (2.5 mg base)/3 mL nebulizat ion soln INHALE THREE (3) ML FOUR (4) TIMES A DAY BY NEBULIZA TION ROUTE. active Not Available Not Available No t Available clindamyc in HCl 300 mg capsule take 1 capsule (300 mg) by oral route every 6 hours for 10 days 09/14 completed clindamy gume HCl 300 mg oral capsule; Recorded Status: Recorded on: 07/21/19 16 4:24PM;D iscontin ued Status: Disconti nued on: 09/15/19 16 1:32PM;U ser: himese;E st. Completi on: 07/31/19 16;Print ed: 07/21/19 16 Not Available Not Available Not Available triamcino lone acetonide 0.5 % topical cream apply a thin layer to the affected area(s) by topical route 2 times per day for 10 days 10/25 completed triamcin olone acetonid e 0.5 % topical cream;Re corded Status: Recorded on: 09/30/19 14 3:11PM;D iscontin ued Status: Disconti nued on: 10/26/19 14 8:58AM;U ser: himese;E st. Completi on: 10/10/19 14;Indic ation: Contact Dermatit is - ([phone]);Prin jonathan: 09/30/19 14 Not Available Not Available Not Available atorvasta tin 10 mg tablet TAKE ONE (1) TABLET BY MOUTH EVERY DAY 06/29 completed Not Available Not Available Not Available azithromy gume 250 mg tablet TAKE 2 TABLETS (500 MG) BY ORAL ROUTE ONCE DAILY FOR 1 DAY THEN 1 TABLET (250 MG) BY ORAL ROUTE ONCE DAILY FOR 4 DAYS 04/17 completed Not Available Not Available Not Available metoprolo l tartrate 100 mg tablet TAKE (1 & 1/2) TABLETS BY MOUTH TWICE DAILY active Not Available Not Available No t Available prednison e 20 mg tablet 02/04 completed Not Available Not Available Not Available isosorbid e mononitra te ER 30 mg tablet,ex tended release 24 hr Take 1 tablet twice a day by oral route. 12/18 completed Not Available Not Available Not Available metronida zole 500 mg tablet TAKE 1 TABLET EVERY EIGHT (8) HOURS FOR 10 DAYS 10/01 completed Not Available Not Available Not Available clopidogr el 75 mg tablet TAKE 1 TABLET BY MOUTH EVERY DAY active Not Available Not Available No t Available amlodipin e 5 mg tablet TAKE 1 TABLET BY MOUTH EVERY DAY active Not Available Not Available No t Available ciproflox acin 500 mg tablet TAKE 1 TABLET EVERY 12 HOURS FOR 10 DAYS 07/19 completed Not Available Not Available Not Available sulfameth oxazole 800 mg-trimet hoprim 160 mg tablet Take 1 tablet 3 times a day by oral route. 04/28 completed Not Available Not Available Not Available aspirin 81 mg tablet,de layed release take 1 tablet (81 mg) by oral route once daily 10/28 completed aspirin 81 mg oral tablet,d elayed release (/EC); Recorded Status: Recorded on: 04/21/19 15 9:01AM;U ser: reeda Held by on 10/28/16 due to rectal bleeding and vomiting blood Not Available Not Available Not Available amoxicill in 500 mg tablet Take 1 tablet every 12 hours by oral route. 07/01 completed Not Available Not Available Not Available ondansetr on 8 mg disintegr ating tablet DISSOLVE ONE (1) TABLET ON TOP OF TONGUE TWICE DAILY NEEDED FOR NAUSEA 12/31 completed Not Available Not Available Not Available orphenadr ine citrate 30 mg/mL injection solution Inject 2 mL every 12 hours by intramus cular route. 01/12 completed Not Available Not Available Not Available Depo-Medr ol 80 mg/mL suspensio n for injection Take 1 mL every day by injectio n route. 10/02 completed Not Available Not Available Not Available isosorbid e mononitra te ER 120 mg tablet,ex tended release 24 hr TAKE 1 TABLET BY MOUTH EVERY DAY active Not Available Not Available No t Available ketorolac 10 mg tablet TAKE ONE (1) TABLET BY MOUTH THREE (3) TIMES A DAY 05/10 completed Not Available Not Available Not Available oxycodone -acetamin ophen 5 mg-325 mg tablet 02/04 completed Not Available Not Available Not Available isosorbid e mononitra te ER 60 mg tablet,ex tended release 24 hr TAKE ONE (1) TABLET BY MOUTH EVERY DAY active Not Available Not Available No t Available ceftriaxo ne 1 gram solution for injection 1 gram IM for one dose 05/20 completed Not Available Not Available Not Available ofloxacin 0.3 % ear drops INSTILL 10 DROPS IN LEFT EAR EVERY DAY 01/12 completed Not Available Not Available Not Available tamsulosi n 0.4 mg capsule TAKE ONE (1) CAPSULE BY MOUTH EVERY DAY active Not Available Not Available No t Available benzonata te 100 mg capsule Take 1 capsule 3 times a day by oral route. 08/10 completed Not Available Not Available Not Available pantopraz ole 40 mg tablet,de layed release TAKE 1 TABLET BY MOUTH TWICE DAILY active Not Available Not Available No t Available oseltamiv ir 75 mg capsule TAKE ONE (1) CAPSULE BY MOUTH TWICE A DAY FOR FIVE (5) DAYS 05/18 completed Not Available Not Available Not Available metformin 1,000 mg tablet take 1 tablet (1,000 mg) by oral route 2 times per day with morning and evening meals 10/25 completed metformi n 1,000 mg oral tablet;R ecorded Status: Recorded on: 09/30/19 14 2:59PM;D iscontin ued Status: Disconti nued on: 10/26/19 14 9:30AM;U ser: [email or web address] t Not Available Not Available Not Available dexametha sone 4 mg tablet TAKE 1 TABLET TWICE DAILY FOR 5 DAYS 12/18 completed Not Available Not Available Not Available nitroglyc avis 0.4 mg sublingua l tablet DISSOLVE ONE (1) TABLET UNDER TONGUE EVERY FIVE (5) MINUTES NEEDED FOR CHEST PAIN (UP TO THREE (3) DOSES/EP ISODE) active Not Available Not Available No t Available gabapenti n 300 mg capsule TAKE 1 CAPSULE BY MOUTH THREE (3) TIMES DAILY active Not Available Not Available No t Available niacin ER 500 mg capsule,e xtended release take 2 capsules (1,000 mg) by oral route once daily at bedtime for 30 days 09/05 completed niacin 500 mg oral capsule, extended release; Recorded Status: Recorded on: 06/14/19 15 10:58AM; Disconti nued Status: Disconti nued on: 09/06/19 15 10:29AM; User: [employer];Est. Completi on: 09/12/19 15;Print ed: 06/14/19 15 Not Available Not Available Not Available diclofena c sodium 75 mg tablet,de layed release TAKE ONE (1) TABLET BY MOUTH TWICE DAILY active Not Available Not Available No t Available mont[address] 10 mg tablet TAKE 1 TABLET BY MOUTH EVERY DAY active Not Available Not Available No t Available furosemid e 20 mg tablet 06/17 completed increase d to 40mg daily per Dr.Shotw guerra Not Available Not Available Not Available ergocalci ferol (vitamin D2) 1,250 mcg (50,000 unit) capsule TAKE 1 CAPSULE BY MOUTH EVERY WEEK active Not Available Not Available No t Available clobetaso l 0.05 % topical ointment APPLY A THIN LAYER TO THE AFFECTED AREA(S) TWO (2) TIMES PER DAY 01/12 completed Not Available Not Available Not Available Micardis 20 mg tablet take 1 tablet (20 mg) by oral route once daily 09/29 completed Micardis 20 mg oral tablet;R ecorded Status: Recorded on: 11/18/19 13 1:46PM;D iscontin ued Status: Disconti nued on: 09/30/19 14 2:58PM;U ser: reeda;In dication : Sherie dubois - () Not Available Not Available Not Available dexametha sone sodium phosphate 4 mg/mL injection solution Inject 2 mL every day by intramus cular route. 04/07 completed Not Available Not Available Not Available methylpre dnisolone 4 mg tablets in a dose pack TAKE DIRECTED PER PACKAGE INSTRUCT IONS 07/02 completed Not Available Not Available Not Available albuterol sulfate HFA 90 mcg/actua tion aerosol inhaler INHALE TWO (2) PUFFS BY MOUTH EVERY FOUR (4) HOURS NEEDED 12/31 completed Not Available Not Available Not Available ketorolac 60 mg/2 mL intramusc ular solution Inject 2 mL every day by intramus cular route as directed for 1 day. 01/12 completed Not Available Not Available Not Available oxybutyni n chloride 5 mg tablet TAKE 1 TABLET BY MOUTH TWICE DAILY 12/31 completed Not Available Not Available Not Available Colton 5 mg-325 mg tablet Take 1 tablet every 6 hours by oral route as needed. 10/19 completed Not Available Not Available Not Available cefdinir 300 mg capsule Take 1 capsule twice a day by oral route for 7 days. 07/30 completed Not Available Not Available Not Available losartan 100 mg tablet TAKE 1 TABLET BY MOUTH EVERY DAY BEFORE BREAKFAS T 01/12 completed Not Available Not Available Not Available fluticaso ne propionat e 50 mcg/actua tion nasal spray,marcelino pension INHALE ONE (1) SPRAY INTO EACH NOSTRIL EVERY DAY 01/12 completed Not Available Not Available Not Available sertralin e 50 mg tablet TAKE ONE (1) TABLET BY MOUTH ONCE DAILY. 12/31 completed Not Available Not Available Not Available amoxicill in 875 mg-potass ium clavulana te 125 mg tablet Take 1 tablet every 12 hours by oral route for 7 days. 08/16 completed Not Available Not Available Not Available tobramyci n 0.3 %-dexamet hasone 0.1 % eye drops,marcelino pension 08/10 completed Not Available Not Available Not Available neomycin- polymyxin -hydrocor t 3.5 mg-10,000 unit/mL-1 % ear drops,marcelino p INSTILL 4 DROPS INTO AFFECTED EAR(S) BY OTIC ROUTE 3 TIMES PER DAY 08/10 completed Not Available Not Available Not Available azithromy gume 500 mg tablet TAKE 1 TABLET EVERY DAY FOR 5 DAYS 12/18 completed Not Available Not Available Not Available Arthritis Pain Relief (acetamin ophen) ER 650 mg tablet,ex tend release TAKE 2 TABLETS BY MOUTH EVERY EIGHT (8) HOURS 10/19 completed Not Available Not Available Not Available Novolog FlexPen U-100 Insulin aspart 100 unit/mL (3 mL) subcutane ous 60 units SQ for one dose 10/03 completed Not Available Not Available Not Available ciproflox acin 0.3 %-dexamet hasone 0.1 % ear drops,marcelino pension INSTILL FOUR (4) DROPS INTO AFFECTED EAR(S) TWO (2) TIMES PER DAY FOR 7 DAYS 08/02 completed Not Available Not Available Not Available rosuvasta tin 40 mg tablet TAKE ONE (1) TABLET BY MOUTH DAILY active Not Available Not Available No t Available Crestor 10 mg tablet take 1 tablet (10 mg) by oral route once daily at bedtime for 30 days 06/13 completed Crestor 10 mg oral tablet;R ecorded Status: Recorded on: 04/21/19 15 10:29AM; Disconti nued Status: Disconti nued on: 06/14/19 15 10:58AM; User: [email or web address] fabrice;Est. Completi on: 08/20/19 15;Print ed: 04/21/19 15 Not Available Not Available Not Available metoprolo l tartrate 25 mg tablet TAKE 1 TABLET TWICE DAILY 10/19 completed Not Available Not Available Not Available metformin ER 1,000 mg tablet,ex tended release 24hr (osmotic) take 1 tablet (1,000 mg) by oral route once daily with the evening meal 04/21 completed metformi n 1,000 mg oral tablet extended release 24hr;Rec orded Status: Recorded on: 03/04/20 14 3:01PM;D iscontin ued Status: Disconti nued on: 04/21/19 15 9:01AM;U ser: radha Skelton d: 03/04/20 14 Not Available Not Available Not Available Colton 09/14 completed Colton oral;Rec orded Status: Recorded on: 12/10/19 15 9:12AM;D iscontin ued Status: Disconti nued on: 09/15/19 16 2:09PM;U ser: reeda;In dication : Pain - ([phone]) Not Available Not Available Not Available metoprolo l tartrate 50 mg twice daily po 10/19 completed Not Available Not Available Not Available Zocor 02/04 completed Zocor oral;Rec orded Status: Recorded on: 12/10/19 15 9:12AM;U ser: reeda Not Available Not Available Not Available Glucose Test Strips check FSBG twice a day, dx 250.00 2015 active glucomet er test strips;R ecorded Status: Recorded on: 07/24/19 16 9:06AM;U ser: radha Rust Completi on: 01/20/20 16;Print ed: 07/24/19 16 Not Available Not Available Not Available ranolazin e ER 500 mg tablet,ex tended release,1 2 hr TAKE 1 TABLET BY MOUTH TWICE DAILY 06/29 completed Not Available Not Available Not Available Levemir FlexPen 100 unit/mL (3 mL) solution subcutane ous insulin pen INJECT 70 UNITS SUBCUTAN EOUSLY EVERY DAY AT BEDTIME. 07/07 completed Not Available Not Available Not Available OneTouch UltraMini kit use as directed dx 250.00, check FSBG once a day 03/07 completed OneTouch UltraMin i miscella neous kit;Rei rded Status: Recorded on: 11/19/19 15 4:15PM;D iscontin ued Status: Disconti nued on: 03/07/20 15 11:11AM; User: [email or web address] p;Printe d: 11/19/19 Not Available Not Available Not Available OneTouch UltraMini dx e11.9, check fsbg once a day 2014 active OneTouch UltraMin i test strip miscella neous kit;Rei rded Status: Recorded on: 03/07/20 11:11AM; User: [email or web address] p;Indica tion: - (-5);Erika nted: 03/07/20 Not Available Not Available Not Available Lantus Solostar U-100 Insulin 100 unit/mL (3 mL) subcutane ous pen INJECT 70 UNITS SUBCUTAN EOUSLY EVERY NIGHT AT BEDTIME active Not Available Not Available No t Available Humalog KwikPen (U-100) Insulin 100 unit/mL subcutane ous 60 units SQ for one dose 10/03 completed Not Available Not Available Not Available Effient 10 mg tablet take 1 tablet (10 mg) by oral route once daily 05/19 completed Effient 10 mg oral tablet;R ecorded Status: Recorded on: 04/21/19 15 9:01AM;D iscontin ued Status: Disconti nued on: 05/19/19 10:45AM; User: jeanine Not Available Not Available Not Available Solu-Medr ol (PF) 125 mg/2 mL solution for injection 2 ml IM for one dose 05/20 completed Not Available Not Available Not Available UltiCare Pen Needle 32 gauge x 5/32 USE DIRECTED WITH INSULIN THREE TIMES DAILY active Not Available Not Available No t Available Janumet XR 100 mg-1,000 mg tablet,ex tended release TAKE ONE (1) TABLET BY MOUTH EVERY DAY WITH EVENING MEAL active Not Available Not Available No t Available Cough DM ER 30 mg/5 mL oral suspensio n,extende d release TAKE 10 ML BY MOUTH TWICE DAILY active Not Available Not Available No t Available Invokana 300 mg tablet take 1 tablet (300 mg) by oral route once daily before the first meal of the day for 30 days 03/07 completed Invokana 300 mg oral tablet;R ecorded Status: Recorded on: 02/03/20 5:13PM;D iscontin ued Status: Disconti nued on: 03/07/20 15 11:13AM; User: poczatek p;Est. Completi on: 06/02/19 16;Indic ation: Type 2 Diabetes Mellitus - ();Prin jonathan: 02/03/20 15 Not Available Not Available Not Available Probiotic 20 billion cell capsule Take 1 capsule every day by oral route. 06/11 completed Not Available Not Available Not Available Victoza 3-Nikko 0.6 mg/0.1 mL (18 mg/3 mL) subcutane ous pen injector INJECT 1.8 MG SUBCUTAN EOUSLY EVERY DAY 06/11 completed Not Available Not Available Not Available Farxiga 10 mg tablet TAKE 1 TABLET DAILY IN THE MORNING. 08/10 completed Not Available Not Available Not Available Farxiga 5 mg tablet take 1 tablet (5 mg) by oral route once daily in the morning for 14 days 05/19 completed Farxiga 5 mg oral tablet;R ecorded Status: Recorded on: 04/21/19 15 10:29AM; Disconti nued Status: Disconti nued on: 05/19/19 15 10:45AM; User: [email or web address] p;Est. Completi on: 05/05/19 15;Indic ation: Type 2 Diabetes Mellitus - () Not Available Not Available Not Available guaifenes in ER 600 mg tablet, extended release 12 hr TAKE 1 TABLET BY MOUTH EVERY 12 HOURS FOR 10 DAYS active Not Available Not Available No t Available Jardiance 25 mg tablet TAKE 1 TABLET BY MOUTH EACH MORNING active Not Available Not Available No t Available True Metrix Glucose Test Strip USE DIRECTED THREE TIMES DAILY 2019 active Not Available Not Available Not Avai lable Trulicity 1.5 mg/0.5 mL subcutane ous pen injector INJECT ONE (1) PEN (1.5 MG) SUBCUTAN EOUSLY EVERY WEEK 02/28 completed Not Available Not Available Not Available Trulicity 0.75 mg/0.5 mL subcutane ous pen injector INJECT 0.5 ML SUBCUTAN EOUSLY EVERY WEEK 02/28 completed Not Available Not Available Not Available Lamisil AF 1 % topical spray powder Apply 2 sprays twice a day by topical route. 08/10 completed Not Available Not Available Not Available Acidophil us-Pectin 75 million cell-100 mg capsule TAKE 1 CAPSULE EVERY DAY 12/31 completed Not Available Not Available Not Available Humalog KwikPen U-200 Insulin 200 unit/mL (3 mL) subcutane ous INJECT 60 UNITS SUBCUTAN EOUSLY THREE (3) TIMES DAILY WITH MEALS active Not Available Not Available No t Available TRUEplus Pen Needle 31 gauge x 5/16 USE DIRECTED EVERY DAY active Not Available Not Available No t Available Bydureon BCise 2 mg/0.85 mL subcutane ous auto-inje ctor Inject 0.85 mL every week by subcutan eous route. 03/27 completed Not Available Not Available Not Available Ozempic 0.25 mg or 0.5 mg (2 mg/1.5 mL) subcutane ous pen injector Inject 0.25 mg every week by subcutan eous route. 08/02 completed Not Available Not Available Not Available Dexcom G6 Wood Model Builder USE DIRECTED active Not Available Not Available No t Available Dexcom G6 Transmitt er device USE DIRECTED 2022 active Not Available Not Available Not Avai lable FreeStyle Carlos 14 Day [place] USE DIRECTED active Not Available Not Available No t Available FreeStyle Carlos 14 Day Sensor kit USE DIRECTED CHANGING SENSOR EVERY 14 DAYS 2021 active Not Available Not Available Not Avai lable dexametha sone sodium phosphate (PF) 10 mg/mL injection syringe Take 4 mg every day by injectio n route. 12/18 completed Not Available Not Available Not Available Trulicity 3 mg/0.5 mL subcutane ous pen injector INJECT THREE (3) MG SUBCUTAN EOUSLY EVERY WEEK active Not Available Not Available No t Available casirivim ab ([id number]) 120 mg/mL intraveno us solution (1 of 2) (EUA) as direted 05/28 completed Not Available Not Available Not Available Ozempic 0.25 mg or 0.5 mg (2 mg/3 mL) subcutane ous pen injector INJECT 0.25 SUBCUTAN EOUSLY EVERY WEEK active Not Available Not Available No t Available Newsana Carlos 3 Plus Sensor device CHANGE SENSOR EVERY 15 DAYS DIRECTED active Not Available Not Available No t Available Vitals Date Recorded Body height Body mass index (BMI) Body weight Body temperature Heart rate Oxygen saturation Oxygen saturation in Arterial blood by Pulse oximetry Respiratory rate Systolic blood pressure Diastolic blood pressure Provider Name and Address Organization Details Last Updated DateTime 5 193.04 cm 37.3 kg/m2 626706. 67 g 97.2 [degF] 77 /min 98 % 98 % 18 /min 124 mm[Hg] 80 mm[Hg] Natalia Camargo [place] - [facility] 5 08:21:39 Social History Question Answer Notes LastModified by Organizat ion Details LastModified Time Tobacco Smoking Status Current Some Day Smoker Analia wilson [place] - [facility] 01/07/2020 16:10:08 Do You Have An Advance Directive? No Information not available 02/05/2016 Are You Blind Or Do You Have Difficulty Seeing? No Information not available 10/03/2016 What Is Your Level Of Caffeine Consumption? Heavy Information not available 02/05/2016 How Much Tobacco Do You Chew? 1/day Information not available 02/05/2016 Are You Deaf Or Do You Have Serious Difficulty Hearing? No Information not available 10/03/2016 What Type Of Diet Are You Following? DIABETIC Information not available 02/05/2016 Which Illicit Or Recreational Drugs Have You Used? None Information not available 02/05/2016 Hard Of Hearing Or Deaf In One Or Both Ears? No Information not available 02/05/2016 Legally Blind In One Or Both Eyes? No Information not available 02/05/2016 Live Alone Or With Others? With Others Information not available 02/05/2016 What Was The Date Of Your Most Recent Tobacco Screening? 08/02/2024 [email or web address] Information not available 08/02/2024 How Many Children Do You Have? 5 Information not available 02/05/2016 What Is Your Current Pack Years? 10-19paraphael alcantar Information not available 07/22/2022 Do You Use Protection During Sex? Always Information not available 02/05/2016 What Is Your Relationship Status? Information not available 02/05/2016 Seat Belts Used Routinely Yes Information not available 10/03/2016 Are You Sexually Active? Yes Information not available 02/05/2016 Smoke Alarm In Home Yes Information not available 02/05/2016 At What Age Did You Start Smoking Tobacco? 20 Information not available 02/05/2016 Are You Passively Exposed To Smoke? Yes Information not available 02/05/2016 How Much Tobacco Do You Smoke? No 2 Cigars A Week [email or web address] Information not available 01/07/2020 General Stress Level High Information not available 02/05/2016 Has Tobacco Cessation Counseling Been Provided? Yes Information not available 07/22/2022 On What Date Was Tobacco Cessation Counseling Provided? 08/02/2024 Information not available 08/02/2024 How Many Years Have You Smoked Tobacco? 30 Information not available 02/05/2016 Do You Have Difficulty Walking Or Climbing Stairs? No Information not available 10/03/2016 Sex: Male Functional Status Question Answer Note LastModified by Organizat ion Details LastModified Time What is your level of alcohol consumption? Moderate 6pk/day when at home Information not available 02/05/2016 Are you currently employed? Yes Information not available 02/05/2016 Are you able to walk? YESWOREST Information not available 10/03/2016 Do you have difficulty doing errands alone? No Information not available 10/03/2016 Are you able to care for yourself? 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 No Information not available 10/03/2016 Do you or have you ever used e-cigarettes or vape? Never used electronic cigarettes [email or web address] Information not available 07/16/2019 What is your exercise level? Occasional Information not available 02/05/2016 Mental Status Question Answer Note LastModified by Organization D etails LastModified Time Do you have difficulty concentrating, remembering or making decisions? No Information no t available 10/03/2016 Family History Relationship Description Onset Age of this Age Resolved Age Notes LastModified by Organization Details LastModified Time Father Heart disease Not available 2015 08:59:43 Father Family history of malignant neoplasm Not available 2015 08:59:58 Father Arthritis Not available 02/05/2016 09:00:16 Mother Heart disease Not available 2015 08:59:43 Mother Family history of malignant neoplasm Not available 2015 08:59:58 Mother Arthritis Not available 02/05/2016 09:00:16 Paternal Grandfather Arthritis Not available 01/22 09:00:16 Paternal Grandmother Arthritis Not available 01/22 09:00:16 Medical History Condition Response Vitamin D Deficiency Y Diabetes Y Myocardial Infarction Y Immunizations Vaccine Type Date Status Note Provider Name and Address Organization Details Recorded Time Tdap 015 completed Not Available [facility] 02/28/2023 15:05:32 COVID-19, mRNA, LNP-S, PF, 100 mcg/0.5mL dose or 50 mcg/0.25mL dose completed Analia Burr [place], [place] - [facility] 03/27/2021 10:59:29 COVID-19, mRNA, LNP-S, PF, 100 mcg/0.5mL dose or 50 mcg/0.25mL dose completed Sravani Montez RN [address], [address], [place] - [facility] 05/28/2021 15:59:24 Influenza, split virus, quadrivalent, PF 022 cancelled patient objection Harriet espana MD [address], [place], [address], [facility] - [facility] 12/31/2021 09:29:59 pneumococcal polysaccharide PPV23 015 completed Not Available [facility] 02/28/2023 15:05:32 Past Encounters Encounter ID Performer Location Encounter Start Date Encounter Closed Date Diagnosis/Indication Diagnosis SNOMED-CT Code Diagnosis ICD10 Code Diagnosis Note [id number] Harriet mancera MD [facility] [address] [place] [address] 08/02/2024 08:17:16 08/02/2024 08:53:42 Diabetes mellitus 50574560 E11.9 Acute bact erial bronchitis 357871165 J20.8 B96.89 Health Concerns Section Related Observation LastModified by Organization Detai ls LastModified Time None Recorded Concern Status LastModified by Organization Details LastModified Time None Recorded Payers Encounter Date Sequence Insurance Name Policy Number Policy Riggs Covered Member ID Riggs Member ID Guarantor Name 08/02/[address] [facility] (MEDICARE REPLACEMENT/A DVANTAGE - HMO) [id number] Alec Kevin Ramirez [id number] Alec Ramirez Notes Date Note Type Note Provider Name and Address Organization Details Recorded Time 08/02/2024 text/html Mr. Ramirez is a 59 yo with cough and congestion with sore throat and Harriet Mathew MD [address], [place], [address], [facility] - [facility] 08/02/2024 08:52:06
--- OUTSIDE RECORDS SUMMARY | 2024-08-30 08:28 | XMS_ITS | Continuity of Care Document ---
Author Organization [place] - [facility], [facility] Address [address] [place] [address] Care Team Providers Care Armored Truck Driver Name Role Phone HARRIET YEAGER Primary Care Provider [phone] VANDANA MCFARLAND OTHER Assessment No assessment recorded. Plan of Treatment Reminders Order Date Submit Date Provider Last Modified By Organization Details Last Modified Time Details Appointments None recorded. Lab None recorded. Referral None recorded. Procedures None recorded. Surgeries None recorded. Imaging None recorded. Medication Orders amoxicillin 875 mg-potassiu m clavulanate 125 mg tablet 2024 025 [facility] [place], [address], [place], [address], 5 05:01:28 Patient TargetsNo targets recorded. Patient InstructionsNo instructions recorded. Reason for Referral None Reported. Problems Name Problem SNOMED Code Status Onset Date Resolution Date Notes Provider Name and Address Organization Details Recorded Time Polyp of colon 18677199 Active 2016 2017 f/u due 5 yrs Oct 2021 Not Available [facility] 2 04:29:02 Immuniza tion refused Active 2016 Not Available [facility] 2 04:29:02 History of tobacco use 86551123085 03 Active 2017 Not Available [facility] 2 04:29:02 Exposure to SARS-CoV -2 Completed 09/16/2019 Removal Reason: Problem added by user from the COVID-19 watch flag Sravani Montez RN [address], [place], [address] , [place] - [facility] 0 10:59:41 Retinopa thy due to diabetes mellitus 3569980 Active 2018 Not Available [facility] 2 04:29:02 Diabetes mellitus 96572008 Active 2015 Not Available [facility] 2 04:29:02 Body mass index 30+ - obesity 049919517 Active 2015 Not Available [facility] 2 04:29:02 Myocardi al infarcti on 74410266 Active 2015 Not Available [facility] 2 04:29:02 Heart disease 85147623 Active 2015 Not Available [facility] 2 04:29:02 COVID-19 302403469 Active 2020 Not Available [facility] 2 04:29:02 Problem Notes None recorded. Procedures Surgical History Date Name Laterality Status Provider Name and Address Organization Details Recorded Time 01/13/20 Advance Care Planning completed Natalia Camargo [place] - [facility] 01/13/2024 10:52:03 01/13/20 24 Functional Status Assessed completed Natalia Camargo [facility] - [facility] 024 10:52:03 01/01/20 A1C level 7.0 to 7.9 completed Analia Burr [place] - [facility] 12/31/2021 09:01:48 10/02/19 A1C level 7.0 to 7.9 completed Analia Burr [facility] - [facility] 10/01/2021 08:51:59 07/20/19 A1C level 9.1 and above completed Analia Burr [place] - [facility] 07/19/2021 13:28:30 05/29/19 A1C level 9.1 and above completed Analia WINTERS - [facility] 05/28/2021 14:15:47 10/03/19 A1C level 9.1 and above completed Analia Burr [facility] - [facility] 10/02/2020 15:46:38 01/07/20 Systolic B/P less than 130 mm Hg completed Analia WINTERS - [facility] 01/07/2020 15:58:50 10/16/20 20 Diastolic B/P 80-89 mm Hg completed Analia Ndiayee [place] - [facility] 01/07/2020 15:58:53 01/07/20 20 A1C level 7.0 to 7.9 completed Analia Burr [place] - [facility] 01/07/2020 15:58:33 12/10/19 20 Diastolic B/P 80-89 mm Hg completed Analia Burr [place] - [facility] 12/10/2019 15:54:02 12/10/19 20 Systolic B/P 130-139 mm Hg completed Analia Burr [place] - [facility] 12/10/2019 15:54:00 11/05/19 20 Diastolic B/P 80-89 mm Hg completed Analia Burr [place] - [facility] 11/05/2019 15:45:06 11/05/19 20 [...] Systolic B/P 130-139 mm Hg completed Analia Ubrr [place] - [facility] 09/17/2019 14:19:36 09/14/19 20 [...] B/P less than 80 mm Hg completed Mellisa Moreno [place] - [facility] 07/16/2019 15:53:17 07/16/19 20 Systolic B/P 130-139 mm Hg completed Mellisa Moreno [place] - [facility] 07/16/2019 15:53:13 04/05/19 20 Systolic B/P less than 130 mm Hg completed Analia Burr [place] - [facility] 04/05/2019 14:16:47 04/05/19 20 Diastolic B/P 80-89 mm Hg completed Analia Burr [place] - [facility] 04/05/2019 14:16:49 01/12/20 19 Diastolic B/P 80-89 mm Hg completed Analia Burr [place] - [facility] 01/11/2019 16:27:51 01/12/20 19 Systolic B/P greater than or equal to 140 mm Hg completed Analia Burr [place] - [facility] 01/11/2019 16:27:47 12/19/19 19 Diastolic B/P greater than or equal to 90 mm Hg completed Analia Burr [place] - [facility] 12/18/2018 11:10:57 12/19/19 19 Systolic B/P greater than or equal to 140 mm Hg completed Analia Burr [place] - [facility] 12/18/2018 11:11:05 12/05/19 19 Diastolic B/P greater than or equal to 90 mm Hg completed Fatoumata Sneed [place] - [facility] 12/04/2018 08:58:30 12/05/19 19 Systolic B/P 130-139 mm Hg completed Fatoumata Sneed [place] - [facility] 12/04/2018 08:58:19 11/13/19 17 Colonoscopy completed Jay Cesar RN [address], [place], [address], [place] - [facility] 04/13/2018 09:58:41 CABG completed Carolina Sosa [place] - [facility] 1 04/02/2015 08:36:22 biopsy of prostate completed Sravani Montez RN [address], [place], [address], [facility] - [facility] 03/09/2019 14:21:52 Imaging Results [...] 10/10/19 14;Indic ation: Contact Dermatit is - ([phone]);Prin jonathan: 09/30/19 14 Not Available Not Available [...] aspirin 81 mg oral tablet,d elayed release (/DENNIS); Recorded Status: Recorded on: 04/21/19 15 9:01AM;U [...] Disconti nued on: 09/06/19 15 10:29AM; User: radha [email or web address] Hickmani on: 09/12/19 15;Print ed: 06/14/19 15 Not [...] 09/30/19 14 2:58PM;U ser: [email or web address];In dication : Hyperten silvino - ([phone] ) Not Available Not Available Not Available dexametha [...] completed Not Available Not Available Not Available [place] 5 mg-325 mg tablet Take 1 tablet [...] Disconti nued on: 06/14/19 15 10:58AM; User: radha gironEst. Completi on: 08/20/19 15;Print ed: 04/21/19 15 [...] nued on: 04/21/19 15 9:01AM;U ser: radha avina;Printe d: 03/04/20 14 Not Available Not Available Not Available [place] 09/14 completed [place] oral;Rec orded Status: Recorded on: 12/10/19 15 9:12AM;D iscontin ued Status: Disconti nued on: 09/15/19 16 2:09PM;U ser: reeda;In dication : Pain - ([phone]) Not Available Not Available Not Available [...] Recorded on: 07/24/19 16 9:06AM;U ser: radha pKoEst. Completi on: 01/20/20 16;Print ed: 07/24/19 16 [...] 15 11:11AM; User: [email or web address] p;Printe d: 11/19/19 15 Not Available Not Available Not Available OneTouch UltraMini dx e11.9, check fsbg once a day 2014 active OneTouch UltraMin i test strip miscella neous kit;Rei rded Status: Recorded on: 03/07/20 15 11:11AM; User: [email or web address] p;Indica tion: - (-5);Erika [...] oral tablet;R ecorded Status: Recorded on: 02/03/20 15 5:13PM;D iscontin ued Status: Disconti nued on: [...] Disconti nued on: 05/19/19 15 10:45AM; User: [email or web address] p;Est. Completi on: 05/05/19 15;Indic ation: Type [...] Available Not Available Not Available Dexcom G6 Med Spec USE DIRECTED active Not Available Not Available No t Available Dexcom G6 Transmitt er device USE DIRECTED 2022 active Not Available Not Available Not Avai lable FreeStyle Carlos 14 Day [place] USE DIRECTED active Not Available Not Available [...] Not Available No t Available casirivim ab ([id number]) 120 mg/mL intraveno us solution (1 of 2) (EUA) as direted 05/28 completed Not Available Not Available Not Available Ozempic 0.25 mg or 0.5 mg (2 mg/3 mL) subcutane ous pen injector INJECT 0.25 SUBCUTAN EOUSLY EVERY WEEK active Not Available Not Available No t Available InstyBooke 3 Plus Sensor device CHANGE SENSOR EVERY 15 DAYS DIRECTED active Not Available Not Available No t Available Vitals Date Recorded Body height Body mass index (BMI) Body weight Body temperature Heart rate Oxygen saturation Oxygen saturation in Arterial blood by Pulse oximetry Respiratory rate Systolic blood pressure Diastolic blood pressure Provider Name and Address Organization Details Last Updated DateTime 5 193.04 cm 38.7 kg/m2 560636. 37 g 97.3 [degF] 82 /min 99 % 99 % 18 /min 140 mm[Hg] 80 mm[Hg] Natalia Camargo [place] - [facility] 5 15:52:41 Social History Question Answer Notes LastModified by Organizat ion Details LastModified Time Tobacco Smoking Status Current Some Day Smoker Analia wil[place], [place] - [facility] 01/07/2020 16:10:08 Do You [...] Of Your Most Recent Tobacco Screening? 08/02/2024 [email or web address] Information not available 08/02/2024 How Many Children Do You Have? 5 Information not available 02/05/2016 What Is Your Current Pack Years? 10-19packyea rs Information not available 07/22/2022 Do You Use [...] Date Was Tobacco Cessation Counseling Provided? 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 02/05/2016 Do you [...] available 01/22 09:00:16 Medical History Condition Response Diabetes Y Vitamin D Deficiency Y Myocardial Infarction Y Immunizations Vaccine Type Date Status Note Provider Name and Address Organization Details Recorded Time Tdap 015 completed Not Available [facility] 02/28/2023 15:05:32 COVID-19, mRNA, LNP-S, PF, 100 mcg/0.5mL dose or 50 mcg/0.25mL dose 022 completed SINGH [place] - [facility] 03/27/2021 10:59:29 COVID-19, mRNA, LNP-S, PF, 100 mcg/0.5mL dose or 50 mcg/0.25mL dose 022 completed Sravani Montez RN [address], [place], [address], [place] - [facility] 05/28/2021 15:59:24 Influenza, split virus, quadrivalent, PF 022 cancelled patient objection Harriet espana MD [address], [place], [address], [facility] - [facility] 12/31/2021 09:29:59 pneumococcal polysaccharide PPV23 015 completed Not Available [facility] 02/28/2023 15:05:32 Past Encounters Encounter ID Performer Location Encounter Start Date Encounter Closed Date Diagnosis/Indication Diagnosis SNOMED-CT Code Diagnosis ICD10 Code Diagnosis Note [id number] Harriet mancera MD [facility] [address] [place] [address] 07/02/2024 15:49:00 07/02/2024 16:16:34 Acute right otitis media 512434963 H66.91 Health Concerns Section Related Observation LastModified by Organization Detai ls LastModified Time None Recorded Concern Status LastModified by Organization Details LastModified Time None Recorded Payers Encounter Date Sequence Insurance Name Policy Number Policy Riggs Covered Member ID Riggs Member ID Guarantor Name 07/02/2024 1 [facility] (MEDICARE REPLACEMENT/A DVANTAGE - HMO) [id number] Alec Ramirez [id number] Alec Ramirez Notes Date Note Type Note Provider Name and Address Organization Details Recorded Time 07/02/2024 text/html Mr. Ramirez is a 59 yo man with right ear pain for one week. No cough and no fever and no congestion. His sugars have been high and he has been working on his diet and weight loss. Harriet Mathew MD [address], [place], [address], [place] - [facility] 07/02/2024 16:30:50
--- OUTSIDE RECORDS SUMMARY | 2024-08-30 08:28 | XMS_ITS | Clinical Summary ---
Author Organization [facility] Address [address] [facility] [address] [place] [address] Phone Care Team Providers Care Security Business Analyst Name Role Phone Unavailable Primary Care Provider Unavailabl e Social History Tobacco Use Types Packs/Day Years Used Date Smoking Tobacco: Never Assessed Sex and Gender Information Value Date Recorded Sex Assigned at Not on file Legal Sex Male 10:51 AM EDT Gender Identity Not on file Sexual Orientation Not on file Plan of Treatment Health Maintenance Due Date Last Done Comments Annual Wellness Exam 02/14/1968 Hepatitis C Screening 1983 DTaP/TDaP/Td (1 - Tdap) 02/14/1984 Hepatitis B Vaccine (1 of 3 - 19+ 3-dose series) 02/14/1984 Cologuard 2010 FIT 2010 Sigmoidoscopy 2010 Virtual Colonography 2010 Pneumococcal Vaccine 50+ (1 of 1 - PCV) 2015 Zoster (1 of 2) 2015 Colon Cancer Screening 11/13/2021 Colonoscopy 11/13/2021 11/13/2016 COVID-19 Vaccine ( - 2023-2 5 season) 2023 Influenza Vaccine (Season Ended) 2024 Meningococcal B Vaccine Aged Out No l onger eligible based on patient's age to complete this topic
--- OUTSIDE RECORDS SUMMARY | 2024-08-30 08:28 | XMS_ITS | Data Portability ---
Author Organization [facility] Address [address] [place] [address] Care Team Providers Care Mirror Inspector Name Role Phone HARRIET YEAGER Primary Care Provider [phone] VANDANA MCFARLAND OTHER Assessment No assessment recorded. Plan of Treatment Reminders Order Date Submit Date Provider Last Modified By Organization Details Last Modified Time Details Appointments None recorded. Lab HbA1c (hemoglobi n A1c), blood 2024 025 [email or web address] [facility], [address], [place], [address], 5 08:43:34 BMP, serum or plasma 2024 025 [facility], [address], [address]y [address], [place], [address], 5 06:41:00 microalbum in/creatin ine, mass ratio, urine 2024 025 [place] [facility] [place], [address], [place], [address], 5 08:52:02 CBC w/ auto diff 2024 025 [place] [facility], [address], [place] [address], [place], [address], 5 06:40:59 lipid panel, serum 2024 025 [place], [address], [place] [address], [place], [address], 5 06:41:01 rapid SARS CoV + SARS CoV 2 Ag, QL IA, respirator y specimen 2024 [email or web address] [facility] [place], [address], [place], [address], 15:58:33 rapid flu (A+B) 2024 [email or web address] [place], [address], [place], [address], 15:58:33 Referral None recorded. Procedures nebulizer treatment (PROC) 2024 Not available 16:24:34 Surgeries None recorded. Imaging XR, chest [address] (Centralized Scheduling), [address] [place] [address], [place], [address], 10:54:15 Medication Orders Mucinex 600 mg tablet, extended release 2024 [facility] [place], [address], [place], [address], 5 08:44:43 Delsym 12 hour 30 mg/5 mL oral suspension ,extended release 2024 [facility] [place], [address], [place], [address], 5 08:44:44 amoxicilli n 875 mg-potassi um clavulanat e 125 mg tablet 2024 025 [facility] [place], [address], [place], [address], 5 05:01:28 Humalog KwikPen U-200 Insulin 200 unit/mL (3 mL) subcutaneo us 2024 025 [facility], [address], [place], [address], 5 08:43:35 amoxicilli n 875 mg-potassi um clavulanat e 125 mg tablet 2024 025 [facility], [address], [place], [address], 5 05:01:28 Victoza 2-Nikko 0.6 mg/0.1 mL (18 mg/3 mL) subcutaneo pen injector 2024 025 [facility], [address], [place], [address], 5 16:40:07 ipratropiu m 0.5 mg-albuter ol 3 mg (2.5 mg base)/3 mL nebulizati on soln 2024 025 [email or web address] Not available 5 10:25:46 ipratropiu m 0.5 mg-albuter ol 3 mg (2.5 mg base)/3 mL nebulizati on soln 2024 025 [facility], [address], [place], [address], 5 10:21:24 Solu-Medro l (PF) 125 mg/2 mL solution for injection 2024 025 [email or web address] Not available 5 08:11:41 ceftriaxon e 1 gram solution for injection 2024 025 Not available 5 08:10:58 cefdinir 300 mg capsule 2024 025 [facility], [address], [place], [address], 5 05:01:19 Medrol (Nikko) 4 mg tablets in a dose pack 2024 025 [facility], [address], [place], [address], 5 16:20:40 Tamiflu 75 mg capsule 2024 025 [facility] [place], [address], [place], [address], 5 09:58:58 Mucinex 600 mg tablet, extended release [email or web address] [place] [address] [facility] [place], [address], [place], [address], 5 08:22:29 Delsym 12 hour 30 mg/5 mL oral suspension ,extended release [email or web address] [facility] [place], [address], [place], [address], 5 08:22:13 Patient TargetsNo targets recorded. Patient Instructions Encounter Date Encounter Id Patient Instructions Last Modified By Organization Details Last Modified Time 05/10/2024 [id number] cough: care instructions [email or web address] Not available 05/10/2024 15:58:33 Reason for Referral None Reported. Results Created Date Observation Date Name Description Value Unit Range Abnormal Flag Note LastModifiedBy Organization Detail LastModifiedTime 05/10/1905/10/2024 rapid SARS CoV + SARS CoV 2 Ag, QL IA, respi rator y speci men SARS CoV antigen Negati ve Not Available [facility] [address], [place], [address], 05/10/2024 15:43:01 05/10/19 25 05/10/2024 rapid flu (A+B) Flu positi ve Not Available [facility] [address], [place], [address], 05/10/2024 15:42:44 05/10/19 25 05/10/2024 rapid flu (A+B) Type A Not Available [facility] [address], [place], [address], 05/10/2024 15:42:44 08/03/19 25 08/03/2024 CBC WITH DIFFE RENTI AL/PL ATELE T WBC 5.0 x10e3 /uL 3.4-10 .8 normal Not Available [facility] ([facility]) [address] [place], [address], 08/03/2024 06:40:59 08/03/19 25 08/03/2024 CBC WITH DIFFE RENTI AL/PL ATELE T RBC 5.61 x10e6 /uL 4.14-5 .80 normal Not Available [facility] ([facility]) [address] [place], [address], 08/03/2024 06:40:59 08/03/19 25 08/03/2024 CBC WITH DIFFE RENTI AL/PL ATELE T hemoglobin 16.3 g/dL 13.0-1 7.7 normal Not Available [facility] ([facility]) [address] [place], [address], 08/03/2024 06:40:59 08/03/19 25 08/03/2024 CBC WITH DIFFE RENTI AL/PL ATELE T hematocrit 51.7 % 37.5-5 1.0 above high normal Not Available [facility] ([facility]) [address] [place], [address], 08/03/2024 06:40:59 08/03/19 25 08/03/2024 CBC WITH DIFFE RENTI AL/PL ATELE T MCV 92 fL 79-97 normal Not Available [facility] ([facility]) [address] [place], [address], 08/03/2024 06:40:59 08/03/19 25 08/03/2024 CBC WITH DIFFE RENTI AL/PL ATELE T MCH 29.1 pg 26.6-3 3.0 normal Not Available [facility] ([facility]) [address] [place], [address], 08/03/2024 06:40:59 08/03/1908/03/2024 CBC WITH DIFFE RENTI AL/PL ATELE T MCHC 31.5 g/dL 31.5-3 5.7 normal Not Available [facility] ([facility]) [address] [place], [address], 08/03/2024 06:40:59 08/03/19 25 08/03/2024 CBC WITH DIFFE RENTI AL/PL ATELE T RDW 12.6 % 11.6-1 5.4 Not Available [facility] ([facility]) [address] [place], [address], 08/03/2024 06:40:59 08/03/19 25 08/03/2024 CBC WITH DIFFE RENTI AL/PL ATELE T platelets 175 x10e3 /uL 150-45 0 normal Not Available [facility] ([facility]) [address] [place], [address], 08/03/2024 06:40:59 08/03/1908/03/2024 CBC WITH DIFFE RENTI AL/PL ATELE T neutrophils 56 % not estab. normal Not Available [facility] ([facility]) [address] [place], [address], 08/03/2024 06:40:59 08/03/19 25 08/03/2024 CBC WITH DIFFE RENTI AL/PL ATELE T lymphs 23 % not estab. normal Not Available [facility] ([facility]) [address] [place], [address], 08/03/2024 06:40:59 08/03/19 25 08/03/2024 CBC WITH DIFFE RENTI AL/PL ATELE T monocytes 16 % not estab. normal Not Available [facility] ([facility]) [address] [place], [address], 08/03/2024 06:40:59 08/03/19 25 08/03/2024 CBC WITH DIFFE RENTI AL/PL ATELE T eos 4 % not estab. normal Not Available [facility] ([facility]) [address] [facility], [place], [address], 08/03/2024 06:40:59 08/03/19 25 08/03/2024 CBC WITH DIFFE RENTI AL/PL ATELE T basos 1 % not estab. normal Not Available [facility] ([facility]) [address] [place], [address], 08/03/2024 06:40:59 08/03/19 25 08/03/2024 CBC WITH DIFFE RENTI AL/PL ATELE T immature cells RED HAT ENGINEER Not Available [facility] ([facility]) [address] [place], [address], 08/03/2024 06:40:59 08/03/19 25 08/03/2024 CBC WITH DIFFE RENTI AL/PL ATELE T neutrophils (absolute) 2.8 x10e3 /uL 1.4-7. 0 normal Not Available [facility] ([facility]) [address] [place], [address], 08/03/2024 06:40:59 08/03/19 25 08/03/2024 CBC WITH DIFFE RENTI AL/PL ATELE T lymphs (absolute) 1.2 x10e3 /uL 0.7-3. 1 normal Not Available [facility] ([facility]) [address] [facility], [place], [address], 08/03/2024 06:40:59 08/03/19 25 08/03/2024 CBC WITH DIFFE RENTI AL/PL ATELE T monocytes(ab solute) 0.8 x10e3 /uL 0.1-0. 9 normal Not Available [facility] ([facility]) [address] [facility], [place], [address], 08/03/2024 06:40:59 08/03/19 25 08/03/2024 CBC WITH DIFFE RENTI AL/PL ATELE T eos (absolute) 0.2 x10e3 /uL 0.0-0. 4 normal Not Available [facility] ([facility]) [address] [facility], [place], [address], 08/03/2024 06:40:59 08/03/19 25 08/03/2024 CBC WITH DIFFE RENTI AL/PL ATELE T baso (absolute) 0.0 x10e3 /uL 0.0-0. 2 normal Not Available [facility] ([facility]) [address] [place], [address], 08/03/2024 06:40:59 08/03/19 25 08/03/2024 CBC WITH DIFFE RENTI AL/PL ATELE T immature granulocytes 0 % not estab. Not Available [facility] ([facility]) [address] [place], [address], 08/03/2024 06:40:59 08/03/1908/03/2024 CBC WITH DIFFE RENTI AL/PL ATELE T immature grans (abs) 0.0 x10e3 /uL 0.0-0. 1 Not Available [facility] ([facility]) [address] [place], [address], 08/03/2024 06:40:59 08/03/19 25 08/03/2024 CBC WITH DIFFE RENTI AL/PL ATELE T NRBC RED HAT ENGINEER Not Available [facility] ([facility]) [address] [place], [address], 08/03/2024 06:40:59 08/03/19 25 08/03/2024 CBC WITH DIFFE RENTI AL/PL ATELE T hematology comments: RED HAT ENGINEER Not Available [facility] ([facility]) [address] [place], [address], 08/03/2024 06:40:59 08/03/19 25 08/03/2024 BASIC METAB OLIC PANEL (8) glucose 354 mg/dL 70-99 above high normal Not Available [facility] ([facility]) [address] [place], [address], 08/03/2024 06:41:00 08/03/19 25 08/03/2024 BASIC METAB OLIC PANEL (8) BUN 18 mg/dL 6-24 normal Not Available [facility] ([facility]) [address] [place], [address], 08/03/2024 06:41:00 08/03/1908/03/2024 BASIC METAB OLIC PANEL (8) creatinine 1.05 mg/dL 0.76-1 .27 normal Not Available [facility] ([facility]) [address] [place], [address], 08/03/2024 06:41:00 08/03/1908/03/2024 BASIC METAB OLIC PANEL (8) eGFR 82 mL/mi n/1.7 3 >59 normal Not Available [facility] ([facility]) [address] [place], [address], 08/03/2024 06:41:00 08/03/19 25 08/03/2024 BASIC METAB OLIC PANEL (8) BUN/creatini ne ratio 17 9-20 normal Not Available [facility] ([facility]) [address] [place], [address], 08/03/2024 06:41:00 08/03/1908/03/2024 BASIC METAB OLIC PANEL (8) sodium 135 mmol/ L 134-14 4 normal Not Available [facility] ([facility]) [address] [facility], [address], 08/03/2024 06:41:00 08/03/1908/03/2024 BASIC METAB OLIC PANEL (8) potassium 4.8 mmol/ L 3.5-5. 2 normal Not Available [facility] ([facility]) [address] [facility], [address], 08/03/2024 06:41:00 08/03/1908/03/2024 BASIC METAB OLIC PANEL (8) chloride 97 mmol/ L 96-106 normal Not Available [facility] ([facility]) [address] [place], [address], 08/03/2024 06:41:00 08/03/1908/03/2024 BASIC METAB OLIC PANEL (8) carbon dioxide, total 20 mmol/ L 20-29 normal Not Available [facility] ([facility]) [address] [place], [address], 08/03/2024 06:41:00 08/03/1908/03/2024 BASIC METAB OLIC PANEL (8) calcium 10.3 mg/dL 8.7-10 .2 above high normal Not Available [facility] ([facility]) [address] [place], [address], 08/03/2024 06:41:00 08/03/1908/03/2024 LIPID PANEL cholesterol, total 148 mg/dL 100-19 9 normal Not Available [facility] ([facility]) [address] [place], [address], 08/03/2024 06:41:01 08/03/19 25 08/03/2024 LIPID PANEL triglyceride s 261 mg/dL 0-149 above high normal Not Available [facility] ([facility]) [address] [place], [address], 08/03/2024 06:41:01 08/03/19 25 08/03/2024 LIPID PANEL HDL cholesterol 30 mg/dL >39 below low normal Not Available [facility] ([facility]) [address] [place], [address], 08/03/2024 06:41:01 08/03/19 25 08/03/2024 LIPID PANEL VLDL cholesterol nunu 43 mg/dL 5-40 above high normal Not Available [facility] ([facility]) [address] [place], [address], 08/03/2024 06:41:01 08/03/19 25 08/03/2024 LIPID PANEL LDL chol calc ([facility]) 75 mg/dL 0-99 Not Available [facility] ([facility]) [address] [place], [address], 08/03/2024 06:41:01 08/03/1908/03/2024 LIPID PANEL LDL calc comment: RED HAT ENGINEER Not Available [facility] ([facility]) [address] [facility], [place], [address], 08/03/2024 06:41:01 08/03/19 25 08/02/2024 micro album in/cr eatin ine, mass ratio , urine Microalbumin 80 Not Available [facility] [place] [id number], [place], [address], 08/02/2024 08:46:06 08/03/19 25 08/02/2024 micro album in/cr eatin ine, mass ratio , urine Creatinine 50 Not Available [facility] [place] [address], [place], [address], 08/02/2024 08:46:06 08/03/19 25 08/02/2024 micro album in/cr eatin ine, mass ratio , urine Ratio >[address] [facility] [address], [place], [address], 08/02/2024 08:46:06 08/03/19 25 08/02/2024 HbA1c (hemo globi n A1c), blood HbA1C 9.8 % Not Available [address] [facility] [address], [place], [address], 08/02/2024 08:24:46 05/18/19 25 05/18/2024 XR, chest No observ ation record ed. rich Arroyo (Centralized Scheduling) [address] [place] [address], [place], [address], 05/18/2024 10:23:44 Result Notes None recorded. 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 Procedures Surgical History Date Name Laterality Status Provider Name and Address Organization Details Recorded Time 01/13/20 Advance Care Planning completed Natalia Camargo [place] - [facility] 01/13/2024 10:52:03 01/13/20 Functional Status Assessed completed Natalia Raman [place] - [facility] 024 10:52:03 01/01/20 A1C level 7.0 to 7.9 completed Analia Ndiayee [place] - [facility] 12/31/2021 09:01:48 10/02/19 A1C level 7.0 to 7.9 completed Analia Burr [place] - [facility] 10/01/2021 08:51:59 07/20/19 A1C level 9.1 and above completed Analia Burr [place] - [facility] 07/19/2021 13:28:30 05/29/19 A1C level 9.1 and above completed Analia Ndiayee [place] - [facility] 05/28/2021 14:15:47 10/03/19 A1C level 9.1 and above completed Analia Burr [place] - [facility] 10/02/2020 15:46:38 01/07/20 Systolic B/P less than 130 mm Hg completed Analia Burr [place] - [facility] 01/07/2020 15:58:50 01/07/20 Diastolic B/P 80-89 mm Hg completed Analia Burr [place] - [facility] 01/07/2020 15:58:53 01/07/20 A1C level 7.0 to 7.9 completed Analia Burr [place] - [facility] 01/07/2020 15:58:33 12/10/19 20 Diastolic B/P 80-89 mm Hg completed Analia Burr [place] - [facility] 12/10/2019 15:54:02 12/10/19 Systolic B/P 130-139 mm Hg completed Analia [...] less than 80 mm Hg completed Analia Rowe [place] - [facility] 09/06/2019 15:50:12 07/16/19 20 Diastolic B/P less than 80 mm Hg completed Mellisa Josh [place] - [facility] 07/16/2019 15:53:17 07/16/19 20 [...] to 140 mm Hg completed Analia Burr [place] - [facility] 12/18/2018 11:11:05 12/05/19 19 Diastolic B/P greater than or equal to 90 mm Hg completed Fatoumata Naren [place] - [facility] 12/04/2018 08:58:30 12/05/19 19 Systolic B/P 130-139 mm Hg completed Fatoumata Sneed [place] - [facility] 12/04/2018 08:58:19 11/13/19 17 Colonoscopy completed Jay Cesar RN [address], [place], [address], [facility] - [facility] 04/13/2018 09:58:41 CABG completed Carolina Sosa [facility] 1 04/02/2015 08:36:22 biopsy of prostate completed Sravani Montez RN [address], [place], [address], [facility] - [facility] 03/09/2019 14:21:52 [...] dication : Type 2 Diabetes Mellitus - (03 00) Not Available Not Available Not Available [facility] [...] 10/10/19 14;Indic ation: Contact Dermatit is - ([phone]);Prin jonathan: 09/30/19 14 Not Available Not Available [...] nued on: 09/06/19 15 10:29AM; User: radha avina;Est. Completi on: 09/12/19 15;Print ed: 06/14/19 15 [...] ser: [email or web address];In dication : Hyperten silvino - () Not Available Not Available Not [...] completed Not Available Not Available Not Available [place] 5 mg-325 mg tablet Take 1 tablet [...] nued on: 06/14/19 15 10:58AM; User: radha avina;Est. Completi on: 08/20/19 15;Print ed: 04/21/19 15 [...] Disconti nued on: 04/21/19 15 9:01AM;U ser: [email or web address] p;Printe d: 03/04/20 14 Not Available Not Available Not Available [place] 09/14 completed [place] oral;Rec orded Status: Recorded on: 12/10/19 15 9:12AM;D iscontin ued Status: Disconti nued on: 09/15/19 16 2:09PM;U ser: [email or web address];In dication : Pain - ([phone]) Not Available Not Available Not Available [...] oral tablet;R ecorded Status: Recorded on: 04/21/19 9:01AM;D iscontin ued Status: Disconti nued on: [...] mg oral tablet;R ecorded Status: Recorded on: 11/12/20 15 5:13PM;D iscontin ued Status: Disconti nued on: 03/07/20 15 11:13AM; User: radha p;Est. Completi on: 06/02/19 16;Indic ation: Type [...] Disconti nued on: 05/19/19 15 10:45AM; User: radha pKoEst. Completi on: 05/05/19 15;Indic ation: Type 2 [...] Available Not Available Not Available Dexcom G6 Angular Js Developer USE DIRECTED active Not Available Not Available No t Available Dexcom G6 Transmitt er device USE DIRECTED 2022 active Not Available Not Available Not Avai lable FreeStyle Carols 14 Day [place] USE DIRECTED active Not Available Not Available [...] Not Available No t Available casirivim ab ([id number]) 120 mg/mL intraveno us solution (1 of 2) (EUA) as direted 05/28 completed Not Available Not Available Not Available Ozempic 0.25 mg or 0.5 mg (2 mg/3 mL) subcutane ous pen injector INJECT 0.25 SUBCUTAN EOUSLY EVERY WEEK active Not Available Not Available No t Available FreeStyle [place] 3 Plus Sensor device CHANGE SENSOR EVERY 15 DAYS DIRECTED active Not Available Not Available No t Available Vitals Date Recorded Body temperature Heart rate Oxygen saturation Oxygen saturation in Arterial blood by Pulse oximetry Respiratory rate Systolic blood pressure Diastolic blood pressure Provider Name and Address Organization Details Last Updated DateTime 5 96.6 [degF] 104 /min 95 % 95 % 18 /min 122 mm[Hg] 80 mm[Hg] Nataliarosaura Camargo [place] - [facility] 5 15:41:20 Date Recorded Body height Body temperature Heart rate Oxygen saturation Oxygen saturation in Arterial blood by Pulse oximetry Provider Name and Address Organization Details Last Updated DateTime 5 193.04 cm 95 [degF] 85 /min 98 % 98 % Sravani Montez RN [address], [place], [address], [facility] 5 09:49:26 Date Recorded Body height Body mass index (BMI) Body weight Body temperature Heart rate Oxygen saturation Oxygen saturation in Arterial blood by Pulse oximetry Respiratory rate Systolic blood pressure Diastolic blood pressure Provider Name and Address Organization Details Last Updated DateTime 5 193.04 cm 37.1 kg/m2 170588. 67 g 96.4 [degF] 78 /min 96 % 96 % 18 /min 116 mm[Hg] 80 mm[Hg] Natalia Camargo [place] - [facility] 5 08:10:37 Date Recorded Body height Body mass index (BMI) Body weight Body temperature Heart rate Oxygen saturation Oxygen saturation in Arterial blood by Pulse oximetry Respiratory rate Systolic blood pressure Diastolic blood pressure Provider Name and Address Organization Details Last Updated DateTime 5 193.04 cm 38.7 kg/m2 216917. 37 g 97.3 [degF] 82 /min 99 % 99 % 18 /min 140 mm[Hg] 80 mm[Hg] Natalia Raman [place] - [facility] 5 15:52:41 Date Recorded Body height Body mass index (BMI) Body weight Body temperature Heart rate Oxygen saturation Oxygen saturation in Arterial blood by Pulse oximetry Respiratory rate Systolic blood pressure Diastolic blood pressure Provider Name and Address Organization Details Last Updated DateTime 5 193.04 cm 37.3 kg/m2 242702. 67 g 97.2 [degF] 77 /min 98 % 98 % 18 /min 124 mm[Hg] 80 mm[Hg] Natalia Camargo [place] - [facility] 5 08:21:39 Social History Question Answer Notes LastModified by Organizat ion Details LastModified Time Tobacco Smoking Status Current Some Day Smoker Analia Aminah wilson [place] - [facility] 01/07/2020 16:10:08 Do [...] Of Your Most Recent Tobacco Screening? 08/02/2024 [email or web address] Information not available 08/02/2024 How Many Children [...] Date Was Tobacco Cessation Counseling Provided? 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 Information not available 02/05/2016 Do you have [...] Recorded Time Tdap 015 completed Not Available [facility] 02/28/2023 15:05:32 COVID-19, mRNA, LNP-S, PF, 100 mcg/0.5mL dose or 50 mcg/0.25mL dose 022 completed Analia Burr [place] - [facility] 03/27/2021 10:59:29 COVID-19, mRNA, LNP-S, PF, 100 mcg/0.5mL dose or 50 mcg/0.25mL dose completed Sravani Montez RN [address], [place], [address], [facility] - [facility] 05/28/2021 15:59:24 Influenza, split virus, quadrivalent, PF 022 cancelled patient objection Harriet espana MD [address], [place], [address], [facility] - [facility] 12/31/2021 09:29:59 pneumococcal polysaccharide PPV23 015 completed Not Available [facility] 02/28/2023 15:05:32 Past Encounters Encounter ID Performer Location Encounter Start Date Encounter Closed Date Diagnosis/Indication Diagnosis SNOMED-CT Code Diagnosis ICD10 Code Diagnosis Note [id number] Harriet mancera MD [facility] [address] [place] [address] 02/05/2016 08:49:20 02/05/2016 18:17:26 Diabetes mellitus 55868696 E11.9 Pain 95130507 R52 Screening for malignant neoplasm of colon 503523421 Z12.11 Pain of sa croiliac joint 316756629 M53.3 Vaccine de clined by patient 7786720931 02 Z28.21 [id number] Harriet mancera MD [facility] [address] [place] [address] [facility] [address] 05/16/2016 16:43:12 05/20/2016 15:22:13 Diabetes mellitus 01661707 E11.9 Acute bact erial sinusitis 16583879 J01.90 Knee pain 34144689 M25.5 [id number] Harriet mancera MD [facility] [address] [place] [address] 07/01/2016 10:15:18 07/01/2016 11:54:53 Concussion injury of brain 119689038 S06.0X0A Pain in left knee 781796 1267 50274 M25.562 Pain of sh oulder region 05379954 M25.511 Tendinitis 03785811 M77. 9 Screening for malignant neoplasm of colon 100104000 Z12.11 [id number] Avis Gomez PA-C [facility] [address] [place] [address] 09/06/2016 13:03:27 09/06/2016 14:22:10 Adult health examination 349196125 Z00.00 [id number] Harriet mancera MD [facility] [address] [facility] [address] 10/03/2016 12:58:46 10/03/2016 13:33:42 Erysipelas 67014952 A46 [id number] Harriet mancera MD [facility] [address] [place] [id number] 10/08/2016 09:42:53 10/08/2016 11:27:51 Coronary arteriosclerosis 34421437 I25.10 Erysipelas 08560755 A46 improving, nearly resolved [id number] Harriet mancera MD [facility] [address] [place] [address] 10/28/2016 12:57:09 10/28/2016 14:16:09 Hematochezia 701454360 K92.1 stop aspirin and plavix, awiting MAYA bhardwaj, contacted cardiology and they agreed with plan to hold plavix and asa [id number] Harriet mancera MD [place] [address] [place] [address] 11/04/2016 10:38:00 11/04/2016 11:15:03 Hyperkalemia 92240862 E87.5 [id number] Harriet mancera MD [address] [address] 11/21/2016 10:37:00 11/21/2016 11:15:56 Coronary arteriosclerosis 48977234 I25.10 Diabetes mellitus 206384 09 E11.9 [id number] Harriet mancera MD [address] [address] 0 01/10/2017 09:12:08 01/10/2017 10:34:20 Immunization refused 745966951 Z28.21 Body mass index 30+ - obesity 166380658 Z68.39 Diabetes mellitus 416550 09 E11.9 Heart disease 47831810 I 51.9 Tinea pedis 1294218 B35. 3 [id number] Harriet mancera MD [address] [address] 01/16/2017 08:48:50 01/16/2017 10:16:13 Erysipelas 25023039 A46 improving, nearly resolved [id number] Harriet mancera MD [address] [place] [address] 01/17/2017 08:44:48 01/17/2017 09:15:05 Diabetes mellitus 44100399 E11.9 pt given 20 units of tresiba in the office this morning Erysipelas 47331006 A46 improving, finish all antibiotic s [id number] Harriet mancera MD [facility] [address] [place] [address] 01/24/2017 08:37:03 01/24/2017 09:05:30 Diabetes mellitus 65319359 E11.9 [id number] Harriet mancera MD [facility] [address] [facility] [place] [address] 04/07/2017 09:16:19 04/07/2017 09:52:00 Diabetes mellitus 43143906 E11.9 Acute bact erial bronchitis 202811113 J20.9 [id number] Harriet mancera MD [place] [address] [address] 04/28/2017 08:28:28 04/28/2017 09:03:32 Diabetes mellitus 24997031 E11.9 Immunization refused 275 348050 Z28.21 Body mass index 30+ - obesity 005142195 Z68.39 [id number] Harriet mancera MD [place] [address] [address] [place] [address] 06/02/2017 08:26:40 06/02/2017 09:51:12 Diabetes mellitus 18744717 E11.9 Tobacco user 122114738 Z 72.0 [id number] Harriet mancera MD [place] [address] [address] 06/17/2017 09:20:32 06/17/2017 10:35:11 Venereal disease screening 327679276 Z11.3 Screening for malignant neoplasm of prostate 226350934 Z12.5 Long-term drug therapy 615907215 Z79.899 Osteoarthritis 366136272 M19.90 Lymphadenopathy 81565411 R59.1 [id number] Harriet mancera MD [place] [address] [address] [place] [address] 06/24/2017 09:11:03 06/24/2017 09:52:39 Diabetes mellitus 54238694 E11.9 Hyperlipidemia 11868988 E78.5 [id number] Avis Gomez PA-C [facility] [address] [place] [address] 0 09/25/2017 15:09:50 09/25/2017 15:37:48 Body mass index 30+ - obesity 929467967 Z68.39 Lymphadenopathy 11955631 R59.0 [id number] Harriet mancera MD [facility] [address] [place] [address] 10/17/2017 11:10:59 10/17/2017 12:14:48 History of tobacco use 7848685742 103 Z87.891 Body mass index 30+ - obesity 584743438 Z68.39 Diabetes mellitus 477480 09 E11.9 Benign pro static hyperplasia 259510802 N40.1 Viral gastroenteritis 11 5353562 A08.4 Long-term drug therapy 645058748 Z79.899 Vitamin D deficiency 347 12616 E55.9 Disorder o f vitamin B12 627558590 E53.8 [id number] Harriet mancera MD [address] [address] 10/31/2017 08:31:42 10/31/2017 10:09:02 History of tobacco use 4222629588 103 Z87.891 Body mass index 30+ - obesity 018751225 Z68.39 Osteoarthritis 409120308 M19.90 Diabetes mellitus 499186 09 E11.9 Heart disease 83570096 I 51.9 Renewal of prescription 369977576 Z76.0 [id number] Harriet mancera MD [address] [address] 11/07/2017 08:30:43 11/07/2017 09:04:33 Diabetes mellitus 89994930 E11.9 Body mass index 30+ - obesity 695161830 Z68.39 [id number] Harriet mancera MD [address] [address] 0 11/21/2017 08:44:46 11/21/2017 09:24:58 Diabetes mellitus 84455216 E11.9 continue Bcise, lianet sugars in 2 weeks [id number] Harriet mancera MD [facility] [address] [place] [address] 01/22/2018 08:55:44 01/22/2018 10:26:31 Diabetes mellitus 69317347 E11.9 continue Bcise, lianet sugars in 2 weeks Body mass index 30+ - obesity 203071127 Z68.39 Neck pain 66253466 M54.2 Chronic back pain 353792 002 G89.29 [id number] Harriet mancera MD [facility] [address] [address] 02/20/2018 15:33:32 02/20/2018 16:29:53 Diabetes mellitus 06143180 E11.9 [id number] Harriet mancera MD [facility] [address] [address] 02/27/2018 15:26:35 02/27/2018 16:06:03 Diabetes mellitus 15123772 E11.9 [id number] Harriet mancera MD [facility] [address] [address] 03/06/2018 15:29:06 03/06/2018 16:20:06 History of tobacco use 1911037648 103 Z87.891 Body mass index 30+ - obesity 397332991 Z68.39 Immunization refused 275 848642 Z28.21 Diabetes mellitus 327332 09 E11.9 [id number] Harriet mancera MD [facility] [address] [address] 03/13/2018 15:30:56 03/13/2018 15:58:21 Diabetes mellitus 92807691 E11.9 stay on 40 units [id number] Harriet mancera MD [facility] [address] [place] [address] 03/27/2018 16:01:48 03/27/2018 16:39:06 History of tobacco use 2398781566 103 Z87.891 Body mass index 30+ - obesity 416756466 Z68.39 Generalize d anxiety disorder 72199401 F41.1 Diabetes mellitus 431023 09 E11.9 stay on 40 units [id number] Avis Gomez PA-C [address] [address] 04/03/2018 09:38:52 04/03/2018 09:58:53 Upper respiratory infection 65070630 J06.9 [id number] Harriet mancera MD [address] [address] 04/07/2018 13:48:51 04/07/2018 14:45:36 Cough 03107584 R05 Body mass index 30+ - obesity 706197127 Z68.39 History of tobacco use 3294509027 103 Z87.891 Acute bact erial bronchitis 332607185 J20.9 [id number] Harriet mancera MD [address] [address] 04/17/2018 15:36:28 04/17/2018 16:24:16 Cough 48211892 R05 Acute otitis externa 302 55026 H60.238 [id number] Harriet mancera MD [address] [address] 04/28/2018 15:52:59 04/28/2018 16:25:24 Acute otitis externa 96960646 H60.455 [id number] Harriet mancera MD [address] [address] 05/22/2018 15:36:59 05/22/2018 15:58:15 Acute bacterial sinusitis 40823887 J01.90 [id number] Harriet mancera MD [address] [address] 08/10/2018 09:56:06 08/10/2018 10:53:02 Diabetes mellitus 15881465 E11.9 stay on 40 units [id number] Harriet mancera MD [facility] [address] [place] [address] [facility] [address] 09/04/2018 12:52:53 09/04/2018 13:12:29 Diabetes mellitus 05171123 E11.9 [id number] Harriet mancera MD [facility] [address] [place] [address] [place] [address] 10/02/2018 14:39:42 10/02/2018 15:40:14 Diabetes mellitus 85273278 E11.9 [id number] Harriet mancera MD [facility] [address] [place] [address] [place] [address] 12/04/2018 08:53:04 12/04/2018 09:42:31 Heart disease 66909622 I51.9 Diabetes mellitus 902365 09 E11.9 Increased frequency of urination 331080496 R35.0 Long-term drug therapy 376441939 Z79.899 Screening for malignant neoplasm of prostate 121592123 Z12.5 Hypercholesterolemia 136 87041 E78.00 Neuropathy due to diabetes mellitus 102934076 E11.40 likely back pain is related to his neuropathy [id number] Harriet mancera MD [facility] [address] [place] [address] [facility] [address] 12/18/2018 10:50:54 12/18/2018 11:33:51 Abdominal pain 08525688 R10.9 [id number] Harriet mancera MD [facility] [address] [place] [address] [place] [address] 01/11/2019 15:50:41 01/11/2019 16:56:29 Abdominal pain 71577351 R10.9 [id number] Harriet mancera MD [facility] [address] [place] [address] [place] [address] 02/04/2019 13:33:23 02/04/2019 14:02:50 Diabetes mellitus 29082194 E11.9 Hernia of anterior abdominal wall 773831832 K43.9 [id number] Harriet mancera MD [facility] [address] [facility] [place] [address] 03/09/2019 14:12:36 03/09/2019 14:36:44 Diabetes mellitus 84936134 E11.9 [id number] Harriet mancera MD [facility] [address] [facility] [address] [place] [address] 04/05/2019 13:35:08 04/05/2019 14:30:35 Dental abscess 910452415 K04.7 [facility]#769 34447 [id number] Avis Gomez PA-C [place] [address] [facility] [address] 04/07/2019 08:32:49 04/07/2019 09:17:24 Adult health examination 990294309 Z00.00 [id number] Harriet mancera MD [address] [facility] [address] 07/16/2019 15:47:04 07/16/2019 16:21:18 Diabetes mellitus 91470785 E11.9 Body mass index 40+ - severely obese 636510590 Z68.41 Nicotine dependence 5629 4008 F17.200 Benign pro static hyperplasia 370182797 N40.1 [id number] Harriet mancera MD [address] [place] [address] 09/06/2019 15:39:51 09/06/2019 16:06:24 Exposure to viral disease 4875629564 27218 Z20.371 [id number] Harriet mancera MD [place] [address] [address] [facility] [place] [address] 09/14/2019 09:09:18 09/14/2019 12:00:21 Diabetes mellitus 25954261 E11.9 Type 2 evie betes mellitus 08875324 E11.9 [id number] Harriet mancera MD [place] [address] [address] [facility] [address] 09/17/2019 14:09:36 09/17/2019 14:31:11 Diabetes mellitus 80828691 E11.9 continue current regimen [id number] Harriet mancera MD [facility] [address] [place] [address] [facility] [address] 10/04/2019 11:19:02 10/04/2019 11:52:34 Diabetes mellitus 28303123 E11.9 continue current regimen Low back pain 411595592 M54.5 Type 2 evie betes mellitus 52147658 E11.9 Prostate s pecific antigen above reference range 982533293 R97.20 [id number] Harriet mancera MD [facility] [address] [address] 11/05/2019 15:33:12 11/05/2019 16:00:26 Diabetes mellitus 88134781 E11.9 continue current regimen [id number] Harriet mancera MD [facility] [address] [address] 12/10/2019 15:43:02 12/10/2019 16:21:41 Diabetes mellitus 83266600 E11.9 continue current regimen Type 2 evie betes mellitus 16281177 E11.9 will stay on basaglar 70 units at night and the humalog 60 units three times a day for any glucose above 150. Vitamin D deficiency 347 50029 E55.9 Disorder o f vitamin B12 309302446 E53.8 Long-term drug therapy 156933249 Z79.899 Fatigue 71703361 R53.83 [id number] Harriet mancera MD [facility] [address] [place] [facility] [address] 01/07/2020 15:45:42 01/07/2020 16:19:19 Diabetes mellitus 70898145 E11.9 continue current regimen, keep up the current exercise routine, diabetic diet Low back pain 742462035 M54.5 [id number] Harriet mancera MD [facility] [address] [address] 06/16/2020 16:15:47 06/19/2020 09:09:22 Diabetes mellitus 45431002 E11.9 continue current regimen, keep up the current exercise routine, diabetic diet Lumbago with sciatica 20 9895430 M54.40 [id number] Harriet mancera MD [facility] [address] [place] [address] 07/13/2020 14:56:48 07/13/2020 15:49:58 Lumbago with sciatica 685496862 M54.40 [id number] Harriet mancera MD [facility] [address] [address] 10/02/2020 15:13:50 10/02/2020 16:30:44 Fever 828388883 R50.9 Diabetes mellitus 894323 09 E11.9 continue current regimen, keep up the current exercise routine, diabetic diet Diarrhea 85494957 R19.7 Nausea and vomiting 1693 1999 R11.2 [id number] Harriet mancera MD [facility] [address] [address] 10/19/2020 14:34:50 10/19/2020 15:25:45 Diabetes mellitus 96901574 E11.9 sugars are running high, he was using his humalog at night and his basaglar during the day. He is going to switch them around.and lianet his sugar in 2 weeks, call with any concerns Low back pain 244758227 M54.5 Coronary arteriosclerosis 79509927 I25.10 Benign pro static hyperplasia 557280696 N40.1 Vitamin D deficiency 347 78635 E55.9 Gastroesop hageal reflux disease 555101199 K21.9 [id number] Harriet mancera MD [facility] [address] [address] 12/05/2020 15:48:45 12/05/2020 16:46:57 Viral screening 346050476 Z11.52 COVID-19 388276871 U07.1 quarantine instructio ns given to patient, patient voiced understand ing.pt instructed to increase fluid intake to decrease chances of dehydratio n, tylenol or ibuprofen for fever or body aches, if any sob or concerning symptoms please call the office or go to the ER if the office is not available for questions [id number] Harriet mancera MD [facility] [address] [place] [address] [place] [address] 12/11/2020 09:57:06 12/11/2020 10:35:14 COVID-19 299784322 U07.1 quarantine instructio ns given to patient, patient voiced understand ing.pt instructed to increase fluid intake to decrease chances of dehydratio n, tylenol or ibuprofen for fever or body aches, if any sob or concerning symptoms please call the office or go to the ER if the office is not available for questions or go to the ER for evaluation [id number] Harriet mancera MD [facility] [address] [place] [address] 12/12/2020 09:30:19 12/12/2020 11:09:41 COVID-19 997696999 U07.1 quarantine instructio ns given to patient, patient voiced understand ing.pt instructed to increase fluid intake to decrease chances of dehydratio n, tylenol or ibuprofen for fever or body aches, if any sob or concerning symptoms please call the office or go to the ER if the office is not available for questions or go to the ER for evaluation Uncontroll ed type 2 diabetes mellitus 413086231 E11.65 pt informed to keep blood glucose down below 991 [id number] Harriet mancera MD [facility] [address] [place] [address] [place] [address] 12/14/2020 09:33:34 12/14/2020 11:01:31 COVID-19 534175774 U07.1 pt is feeling much better today, he says he is not sob and his sugars are under better control. He is drinking plenty of fluids and has not been running a fever. [id number] Harriet mancera MD [facility] [address] [place] [address] 12/18/2020 09:36:34 12/18/2020 10:20:44 COVID-19 374743231 U07.1 pt is feeling much better today, he says he is not as sob and his sugars are under better control. He is drinking plenty of fluids and has not been running a fever. He is to finish all his steroids and antibiotic s, continue his breathing treatments and lianet in one week. Chronic ki dney disease stage 3 077969019 N18.30 [id number] Harriet mancera MD [facility] [address] [address] 12/22/2020 09:29:42 12/22/2020 12:37:26 COVID-19 738190716 U07.1 pt is feeling much better today, he says he is not as sob and his sugars are under better control. He is drinking plenty of fluids and has not been running a fever. He is to finish all his steroids and antibiotic s, continue his breathing treatments and return to work on 12/26/2020 [id number] Harriet mancera MD [facility] [address] [address] 03/27/2021 10:03:21 03/27/2021 13:16:20 Cough 23610857 R05.9 Administra tion of SARS-CoV-2 antigen vaccine 521453554 Z23 Viral syndrome 092272125 B34.9 pt needs symptomati c management [id number] Harriet mancera MD [facility] [address] [address] 05/28/2021 13:51:39 05/28/2021 16:28:04 Diabetes mellitus 25630079 E11.9 pt last filled his basaglar and humalog in December and November respective ly, so he is not using these regularly. He is filling his Jardiance and Janumet regularly. His sugars will not come under control unless he is using his insulin regularly. 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 Abdominal pain 77363468 R10.9 Right flank pain 3497970 09 R10.9 Administra tion of SARS-CoV-2 mRNA vaccine 8504274956 Z23 [id number] Harriet mancera MD [facility] [address] [address] 06/05/2021 14:42:16 06/05/2021 15:44:55 Low back pain 660762378 M54.50 Diarrhea 31708421 R19.7 [id number] Harriet mancera MD [facility] [address] [address] 07/19/2021 13:00:21 07/19/2021 14:31:38 Diabetes mellitus 52738651 E11.9 hgb a1c is slightly decreased, will add trulicity, lianet sugars in 2 weeks [id number] Harriet mancera MD [facility] [address] [address] 08/03/2021 16:17:52 08/03/2021 16:46:02 Diabetes mellitus 70929092 E11.9 stay on trulicity weeklystay on basaglar nightlyuse humalog sliding scale as neededuse carlos glucometer to monitor sugarscome back in one month to lianet sugars [id number] Harriet mancera MD [facility] [address] [address] 10/01/2021 08:35:03 10/01/2021 09:19:53 General examination of patient 605854054 Z00.00 Hyperlipid emia screening 502284989 Z13.220 Screening for malignant neoplasm of prostate 464604949 Z12.5 Endocrine/ metabolic screening 432522247 Z13.228 Exercises education, guidance, and counseling 824674530 Z71.82 Dietary ma nagement surveillance 628760528 Z71.3 Diabetes mellitus 592664 09 E11.9 stay on trulicity weeklystay on basaglar nightlyuse humalog sliding scale as neededuse carlos glucometer to monitor sugarscome back in one month to lianet sugars History of polyp of colon 366834425 Z86.010 Vitamin D deficiency 347 64832 E55.9 Disorder o f vitamin B12 966669461 E53.8 [id number] Harriet mancera MD [facility] [address] [place] [address] 12/31/2021 08:43:38 12/31/2021 09:53:03 Diabetes mellitus 89175445 E11.9 stay on trulicity weeklystay on basaglar nightlyuse humalog sliding scale as neededuse carlos glucometer to monitor sugarscome back in one month to lianet sugars Lichen sim plex chronicus 04896706 L28.0 Vaccine de clined by patient 5612254757 02 Z28.21 [id number] Harriet mancera MD [facility] [address] [place] [address] 05/20/2022 09:17:45 05/20/2022 10:26:59 Diabetes mellitus 63470643 E11.9 stay on trulicity weeklystay on basaglar nightlyuse humalog sliding scale as neededuse carlos glucometer to monitor sugarscome back in one month to lianet sugars [id number] Harriet mancera MD [facility] [address] [place] [address] 07/22/2022 14:14:30 07/22/2022 15:20:44 Body mass index 30+ - obesity 114764216 Z68.38 Obesity 006421523 E66.9 Viral screening 57027683 4 Z11.52 Lumbago with sciatica 20 2419136 M54.40 Allergic rhinitis 945348 04 J30.9 [id number] Harriet mancera MD [facility] [address] [address] 07/29/2022 14:42:29 07/29/2022 16:08:34 Low back pain 850673085 M54.50 Degenerati on of lumbar intervertebral disc 17366905 M51.36 [id number] Harriet mancera MD [facility] [address] [place] [address] 02/28/2023 15:01:59 02/28/2023 16:04:11 Diabetes mellitus 77476383 E11.9 Acute otit is externa of left ear 5428355759 423815 H60.995 [id number] Avis Gomez PA-C [address] [address] 06/30/2023 10:30:25 06/30/2023 11:00:02 Acute sinusitis 18766960 J01.90 [id number] Harriet mancera MD [address] [address] 09/01/2023 13:12:14 09/01/2023 16:10:46 Diabetes mellitus 14167400 E11.9 Body mass index 30+ - obesity 143159973 Z68.38 Obesity 482515966 E66.9 Low back pain 319235455 M54.50 Rib pain 956694338 R07.8 1 [id number] Harriet mancera MD [address] [address] 09/05/2023 14:32:58 09/05/2023 15:06:33 Cough 74062408 R05.9 Viral screening 83439418 4 Z11.52 Acute bact erial bronchitis 029802026 J20.9 [id number] Harriet mancera MD [address] [address] 01/13/2024 10:47:13 01/13/2024 12:37:12 Adult health examination 035162539 Z00.00 Depression screening 171 802088 Z13.31 A depression screening was completed via a standardiz ed screening tool. Depression screening score is zero, no further action needed. Examinatio n of blood pressure 990118149 Z01.30 Diet education 05544796 Z71.3 Counseling 605207726 Z71 .82 Exercise counseling . Patient encouraged to exercise 30 minutes 5 days a week. At [facility] ed risk for falls 047781591 Z91.81 STEADI FAST screening score of __2 ___. No further action needed Advance care planning 71 3394278 Z71.89 Diabetes mellitus 220974 09 E11.9 Vaccination declined 073 1898323 Z28.21 Seasonal flu vaccine offered and declined Screening for malignant neoplasm of prostate 622581508 Z12.5 Long-term drug therapy 814102689 Z79.899 Vitamin D deficiency 347 56765 E55.9 Disorder o f vitamin B12 380872060 E53.8 Tobacco user 662278533 Z 72.0 Body mass index 30+ - obesity 500325698 Z68.38 [id number] Harriet mancera MD [address] [address] 02/03/2024 14:34:45 02/03/2024 15:43:09 Viral screening 452271646 Z11.52 Cough 14910583 R05.9 Acute bact erial bronchitis 328532899 J20.9 [id number] Harriet mancera MD [address] [address] 05/10/2024 15:30:12 05/10/2024 16:30:23 Cough 47233213 R05.9 Viral screening 16282849 4 Z11.52 Influenza caused by Influenza A virus 261059347 J09.X2 [id number] Harriet mancera MD [address] [address] 05/18/2024 09:45:29 05/18/2024 10:54:15 Cough 31004511 R05.9 Acute bronchiolitis 5505 005 J21.9 He says his breathing was much improved after a duoneb treatment. I instructed him to do 4 treatments a day and start his antibiotic s and steroids and lianet in 2 day. Come back sooner if any worsening symptoms. [id number] Harriet mancera MD [address] [address] 05/20/2024 08:07:23 05/20/2024 08:44:08 Diabetes mellitus 82807139 E11.9 He has not been takin his trulicity because of the cost so we will switch him to victoza [id number] Harriet mancera MD [facility] [address] [place] [address] 07/02/2024 15:49:00 07/02/2024 16:16:34 Acute right otitis media 472467974 H66.91 [id number] Harriet mancera MD [facility] [address] [place] [address] 08/02/2024 08:17:16 08/02/2024 08:53:42 Diabetes mellitus 27245543 E11.9 Acute bact erial bronchitis 285132701 J20.8 B96.89 Health Concerns Section Related Observation LastModified by Organization Detai ls LastModified Time None Recorded Concern Status LastModified by Organization Details LastModified Time None Recorded Advance Directives Directive N: Payers Insurance Date Sequence Insurance Name Policy Number Policy Riggs Covered Member ID Riggs Member ID Guarantor Name 07/30/2024 1 [facility] (MEDICARE REPLACEMENT/AD VANTAGE - HMO) [id number] Alec Ramirez [id number] Alec Ramirez 06/30/2023 1 [place] [id number] Alec Ramirez [id number] Alec Ramirez 05/10/2024 1 [employer] (MEDICARE REPLACEMENT/AD VANTAGE - HMO) Alec Ramirez [id number] Alec Ramirez 02/28/2023 [place] [id number] Alec Ramirez [id number] Alec Ramirez 02/28/2023 1 [employer] (PPO) [id number] Alec Ramirez [id number] Alec Ramirez 12/18/2018 1 *SELF PAY* Zahra Ramirez 02/28/2023 1 [place] [id number] Alec Ramirez [id number] Alec Ramirez 05/21/2016 1 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 He has severe CAD and DM2. Harriet Mathew MD [address], [place], [address], [facility] 05/10/2024 16:28:28 05/18/2024 text/html Mr. Ramirez is a 59 yo male who recently had influenza type A and has had persistent cough with fatigue and continued night sweats, weakness and shortness of breath. He is unsure if he has been running a fever. He says his body aches are starting to improve. Harriet Mathew MD [address], [place], [address], [facility] 05/18/2024 10:34:50 05/20/2024 text/html Mr. Ramirez is here to follow up on this:Mr. Ramirez is a 59 yo male who recently had influenza type A and has had persistent cough with fatigue and continued night sweats, weakness and shortness of breath. He is unsure if he has been running a fever. He says his body aches are starting to improve. He says he is feeling much better, he is not dyspnic anymore and his cough is improving. His sugars are running high, will need to continue humalog sliding scale insulin to keep sugars less than 200. Harriet Mathew MD [address], [place], [address], [facility] - [facility] 05/20/2024 10:35:45 07/02/2024 text/html Mr. Ramirez is a 59 yo man with right ear pain for one week. No cough and no fever and no congestion. His sugars have been high and he has been working on his diet and weight loss. Harriet Mathew MD [address], [place], [address], [facility] - [facility] 07/02/2024 16:30:50 08/02/2024 text/html Mr. Ramirez is a 59 yo with cough and congestion with sore throat and Harriet Mathew MD [address], [place], [address], [place] - [facility] 08/02/2024 08:52:06
[2024-08-30] MEDS: DEFINITY US ECHO CONTRAST 2ML INJ 2 MG IV (09:16)
--- NOTE | 2024-08-30 09:30 | CA_ITS ---
APPROVED REPORT EXAM: Comprehensive 2D, Doppler, and color-flow Echocardiogram Case Finisher: Sravani Ferreira RT(R) Ht: 6 ft 4 in Wt: 309lbs BSA: 2.67 BP: 135/84 mmHg Indications: Shortness of breath, hx cardiomyopathy Echo Enhancing Agent Indication: Endocardial border delineation Agent(s) / Amount(s) Used: Definity 2 cc 2D Dimensions Left Atrium 3.24 cm M: 3.0 - 4.0 LVEF (Nice's) 33.10 % M: 52 - 72 LVOT 2.03 cm (M/F) 1.5-2.5 LV Volume 163.50 mL M: 62 - 150 LV Volume Index 61.2 mL/m2 M: 34 - 74 EF AP4 23.40 % EF AP2 39.8 % EF BP 33.1 % GL Strain -9.2 % M-Mode Dimensions RVDd 2.81 cm (0.9-2.6) LVDd 4.08 cm (3.5-5.7) Ao Diam 3.24 cm (2.0-3.7) LVDs 2.98 cm (3.5-5.7) IVSd 1.15 cm (0.6-1.1) PWd 1.02 cm (0.6-1.1) EF (Teich) 53.10% FS 27.00% EDV (Teich) 73.40 mL ESV (Teich) 34.40 mL LV Diastology E Decel Time 219 (160-240 msec) E/A Ratio 0.7 MED E' 6.1 (>= 7 cm/sec) E'/MED E' Ratio 9.62 (<= 14) LAT E' 8.4 (>= 10 cm/sec) E/LAT E' Ratio 6.99 (<= 14) Mitral Valve MV E Max Gunnar. 59.0 (40-130 cm/s) MV A Velocity 86.0 (40-130 cm/s) E/A Ratio 0.68 MV Decel. Time 219 (160-240 ms) Left Ventricle The left ventricle is normal size. The left ventricular systolic function is normal. The left ventricular ejection fraction is within the normal range. There is increased LV wall thickness. There is normal LV segmental wall motion. Transmitral Doppler flow pattern suggests impaired LV relaxation. No left ventricle thrombus noted on this study. LVEF is 55%. Right Ventricle The right ventricle is normal size. The right ventricular systolic function is normal. Atria The left atrium size is normal. The right atrium size is normal. There is no Doppler evidence of interatrial shunt. Aortic Valve Aortic valve is mildly thickened. There is no aortic valvular stenosis. No aortic regurgitation. Mitral Valve The mitral valve is normal in structure. No evidence of mitral valve stenosis. Trace mitral regurgitation. Tricuspid Valve Tricuspid valve is grossly normal in structure and function. Trace tricuspid regurgitation. Pulmonic Valve The pulmonary valve is normal in structure. Trace pulmonic regurgitation. Great Vessels The aortic root is normal in size. IVC is normal in size and collapses >50% with inspiration. Pericardium There is no pericardial effusion. Other Information Study Quality: Fair Conclusion Normal biventricular systolic function. No significant valvular stenosis or regurgitation. Electronically signed by : Mya Boles MD 09/06/2024 00:04:33
== END 2024-08-30 23:59 | disposition home or self-care (01) ==
LOC: RT 08:24
PROVIDERS: PCP Family Medicine; Visit Provider Nurse Practitioner
DX: I25.10 Atherosclerotic heart disease of native coronary artery without angina pectoris (principal); I11.9 Hypertensive heart disease without heart failure
CPT/HCPCS: 93306; Q9957

== ENCOUNTER 2025-01-14 07:51 | Outpatient (CLI) | payer OTHER, SELFPAY ==
--- OUTSIDE RECORDS SUMMARY | 2025-01-14 07:55 | XMS_ITS | Continuity of Care Document ---
Author Organization [place] - [facility], Formerly [facility] Address [address] [place] [address] Care Team Providers Care Pad Assembler Name Role Phone HARRIET LOCKHART Primary Care Provider VANDANA MCFARLAND OTHER [phone] Assessment No assessment recorded. Plan of Treatment Reminders Order Date Submit Date Provider Last Modified By Organization Details Last Modified Time Details Appointments None recorded. Lab None recorded. Referral None recorded. Procedures None recorded. Surgeries None recorded. Imaging None recorded. Medication Orders cephalexin 500 mg capsule 2024 025 [facility], [address], [place], [address], 09:35:09 Patient TargetsNo targets recorded. Patient InstructionsNo instructions recorded. Reason for Referral None Reported. Results Created Date Observation Date Name Description Value Unit Range Abnormal Flag Note LastModifiedBy Organization Detail LastModifiedTime 12/14/1912/14/2024 SEDIM ENTAT ION RATE- WESTE RGREN sedimentatio n rate-westerg karen 10 mm/HR 0-30 normal Not Available [facility] ([facility]) [address] [place], [address], 12/14/2024 12:11:56 12/14/19 25 12/14/2024 CREAT INE KINAS E,TOT AL creatine kinase,total 83 U/L 41-331 normal Not Available [facility] ([facility]) [address] [place], [address], 12/14/2024 12:11:56 12/14/1912/14/2024 C-GARCÍA CTIVE PROTE IN, QUANT C-reactive protein, quant 1 mg/L 0-10 normal Not Available [facility] ([facility]) [address], [place], [address], 12/14/2024 12:11:57 Result Notes None recorded. Problems Name Problem SNOMED Code Status Onset Date Resolution Date Notes Provider Name and Address Organization Details Recorded Time Exposure to SARS-CoV -2 Completed 09/16/2019 Removal Reason: Problem added by user from the COVID-19 watch flag Sravani Montez RN [address], [place], [address] , [place] - [facility] 0 10:59:41 Diabetes mellitus 86282547 Active 2015 Not Available [facility] 2 04:29:02 Body mass index 30+ - obesity 420692164 Active 2015 Not Available [facility] 2 04:29:02 Myocardi al infarcti on 92006153 Active 2015 Not Available [facility] 2 04:29:02 Heart disease 92597391 Active 2015 Not Available [facility] 2 04:29:02 Polyp of colon 90935569 Active 2016 f/u due 5 yrs Oct 2021 Not Available [facility] 2 04:29:02 Immuniza tion refused Active 2016 Not Available [facility] 2 04:29:02 History of tobacco use 24021620683 03 Active 2017 Not Available [facility] 2 04:29:02 Retinopa thy due to diabetes mellitus 1001079 Active 2018 Not Available [facility] 2 04:29:02 COVID-19 622522020 Active 2020 Not Available [facility] 2 04:29:02 Problem Notes None recorded. Procedures Surgical History Date Name Laterality Status Provider Name and Address Organization Details Recorded Time 01/13/20 Advance Care Planning completed Natalia Camargo [place] - [facility] 01/13/2024 10:52:03 01/13/20 24 Functional Status Assessed completed Natalia Camargo [place] [...] above completed Analia Burr [place] - [facility] 05/28/2021 14:15:47 10/03/19 A1C [...] Ndiayee [place] - [facility] 11/05/2019 15:45:06 11/05/19 Systolic B/P 130-139 mm Hg completed Analia Burr [place] - [facility] 11/05/2019 15:45:04 11/03/19 Cardiac Cath completed Analia Rowe [place] - [facility] 11/05/2019 15:51:58 07/13/20 20 Diastolic B/P 80-89 mm Hg completed Analia Ndiayee [place] - [facility] 10/04/2019 11:28:20 10/04/19 20 Systolic B/P 130-139 mm Hg completed Analia Burr [place] - [facility] 10/04/2019 11:28:16 09/17/19 20 Diastolic B/P 80-89 mm Hg completed Analia Ndiayee [place] - [facility] 09/17/2019 14:19:39 09/17/19 20 [...] less than 80 mm Hg completed Mellisa Vincentmorubio [place] - [facility] 07/16/2019 15:53:17 07/16/19 20 Systolic B/P 130-139 mm Hg completed Mellisa Vincentleman [place] - [facility] 07/16/2019 15:53:13 04/05/19 20 [...] equal to 140 mm Hg completed Analia Ndiayee [place] - [facility] 01/11/2019 16:27:47 12/19/19 19 [...] completed Jay Cesar RN [address], [place], [address], [place] - [facility] 04/13/2018 09:58:41 CABG completed Carolina Sosa [place] - [facility] 1 04/02/2015 08:36:22 biopsy of prostate completed Sravani Montez RN [address], [place], [address], [place] - [facility] 03/09/2019 14:21:52 Imaging Results None [...] Not Available Not Available No t Available valacyclo vir 1 gram tablet Take 1 tablet 3 times a day by oral route for 7 days. 11/25 completed Not Available Not Available Not Available prednison e 20 mg tablet 02/04 completed Not Available Not Available Not Available isosorbid e mononitra te ER 30 mg tablet,ex tended release 24 hr Take 1 tablet twice a day by oral route. 12/18 completed Not Available Not Available Not Available metronida zole 500 mg tablet Take 1 tablet every 8 hours by oral route for 10 days. 11/19 completed Not Available Not Available Not Available clopidogr el 75 mg tablet TAKE 1 TABLET BY MOUTH EVERY DAY active Not Available Not Available No t Available amlodipin e 5 mg tablet TAKE 1 TABLET BY MOUTH EVERY DAY active Not Available Not Available No t Available ciproflox acin 500 mg tablet TAKE 1 TABLET BY MOUTH EVERY 12 HOURS FOR 10 DAYS 11/11 completed Not Available Not Available Not Available [...] ONE (1) TABLET BY MOUTH EVERY DAY 12/13 completed Not Available Not Available Not Available ceftriaxo ne 1 gram solution for [...] completed Not Available Not Available Not Available cephalexi n 500 mg capsule Take 1 capsule every 6 hours by oral route for 7 days. 2024 active Not Available Not Available Not Avai lable pantopraz ole 40 mg tablet,de layed release [...] CAPSULE BY MOUTH THREE (3) TIMES DAILY 11/02 completed Not Available Not Available Not Available niacin ER 500 mg capsule,e xtended [...] D2) 1,250 mcg (50,000 unit) capsule TAKE ONE (1) CAPSULE BY MOUTH EVERY WEEK active Not [...] 09/30/19 14 2:58PM;U ser: [email or web address];In dication : Lubnaen silvino - () Not Available Not Available [...] completed Not Available Not Available Not Available [place] 5 mg-325 mg tablet Take 1 tablet [...] gume 500 mg tablet TAKE 1 TABLET BY MOUTH ONCE DAILY FOR 5 DAYS 11/11 completed Not Available Not Available Not Available [...] Disconti nued on: 04/21/19 15 9:01AM;U ser: [email or web address];Printe d: 03/04/20 14 Not Available Not Available Not Available [place] 09/14 completed [place] oral;Rec orded Status: Recorded on: 12/10/19 15 9:12AM;D iscontin ued Status: Disconti nued on: 09/15/19 16 2:09PM;U ser: [email or web address];In dication : Pain - ([phone]) Not Available Not Available Not Available [...] 100 unit/mL (3 mL) subcutane ous pen 50 UNITS SUBCUTAN EOUSLY EVERY DAY AT BEDTIME active Not Available Not Available [...] completed Not Available Not Available Not Available acidophil us 100 million cell-pect in, citrus 10 mg capsule Take 1 capsule every day by oral route. 2024 active Not Available Not Available Not Avai lable UltiCare Pen Needle 32 gauge x 5/32 [...] TAKE 10 ML BY MOUTH TWICE DAILY 11/02 completed Not Available Not Available Not Available Invokana 300 mg tablet take 1 [...] MOUTH EVERY 12 HOURS FOR 10 DAYS 11/02 completed Not Available Not Available Not Available Jardiance 25 mg tablet TAKE 1 [...] Not Available Not Available No t Available Lactobaci llus acidophil us 500 million cell capsule TAKE 1 CAPSULE BY MOUTH EVERY DAY active Not [...] Available Not Available Not Available Dexcom G6 Logistics Supply Officer USE DIRECTED active Not Available Not Available No t Available Dexcom G6 Transmitt er device USE DIRECTED 2022 active Not Available Not Available Not Avai lable FreeStyle Carlos 14 Day [place] USE DIRECTED active Not Available Not Available [...] THREE (3) MG SUBCUTAN EOUSLY EVERY WEEK 09/23 completed Not Available Not Available Not Available casirivim ab ([id number]) 120 mg/mL intraveno us solution (1 of 2) (EUA) as direted 05/28 completed Not Available Not Available Not Available Ozempic 0.25 mg or 0.5 mg (2 mg/3 mL) subcutane ous pen injector INJECT 0.5 MG SUBCUTAN EOUSLY EVERY WEEK active Not Available Not Available No t Available [employer] [place] 3 Plus Sensor device CHANGE SENSOR EVERY 15 DAYS DIRECTED active Not Available Not Available No t Available Vitals Date Recorded Body height Body mass index (BMI) Body weight Body temperature Heart rate Oxygen saturation Oxygen saturation in Arterial blood by Pulse oximetry Respiratory rate Pain severity - 0-10 verbal numeric rating [Score] - Reported Systolic And Diastolic Provider Name and Address Organization Details Last Updated DateTime 5 193.04 cm 37.5 kg/m2 543080. 45 g 96.8 [degF] 79 /min 99 % 99 % 18 /min 0 112/80 mm[Hg] Mellisa Moreno [place] - [facility] 5 09:12:22 Social History Question Answer Notes LastModified by [...] Date Of Your Most Recent Tobacco Screening? 12/13/2024 Information not available 12/13/2024 How Many Children Do You Have? 5 [...] What Date Was Tobacco Cessation Counseling Provided? 11/11/2024 [email or web address] Information not available 11/11/2024 How Many Years Have You Smoked Tobacco? [...] not available 02/05/2016 Are you able to walk independently without assistance or assistive devices? YESWOREST Information not available 10/03/2016 Do you have difficulty doing errands alone? No Information not available 10/03/2016 Are you able to care for yourself independently? 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 No Information not available 10/03/2016 Do you [...] or 50 mcg/0.25mL dose 022 [place] [facility] 03/27/2021 10:59:29 COVID-19, mRNA, LNP-S, PF, 100 mcg/0.5mL dose or 50 mcg/0.25mL dose 022 completed Sravani Montez RN [address], [place], [address] [place] - [facility] 05/28/2021 15:59:24 Influenza, split virus, quadrivalent, PF 022 cancelled patient objection Harriet espana MD [address], [place], [address], [place] - [facility] 12/31/2021 09:29:59 pneumococcal polysaccharide PPV23 015 completed Not Available [facility] 02/28/2023 15:05:32 Past Encounters Encounter ID Performer Location Encounter Start Date Encounter Closed Date Diagnosis/Indication Diagnosis SNOMED-CT Code Diagnosis ICD10 Code Diagnosis IMO Codes Diagnosis Note [id number] Harriet mancera MD [facility] [address] [place] [address] 12/13/2024 13:27:15 12/13/2024 14:12:09 Paresthesia of hand 373390972 R20.2 548343 Paresthesi a of lower extremity 020814868 R20.2 421992 Weakness o f bilateral lower limb 5675425274 31662 R29.898 [id number] Harriet mancera MD [facility] [address] [place] [address] 01/06/2025 09:06:45 01/06/2025 09:42:36 Cellulitis of left lower limb 7638314056 4418494 L03.215 [id number] Goals Section Goal Description Progress Status Start Date LastModified by Organization Details LastModified Time Hemoglobin A1C 11/25/24 Patient to decrease a1c to 8.7 by 1 month follow up due to be scheduled around 12/16/24 None active 2024 Sravani Montez Information not available 11/25/2024 18:28:18 Health Concerns Section Related Observation LastModified by Organization Detai ls LastModified Time None Recorded Concern Status LastModified by Organization Details LastModified Time Uncontrolled type 2 diabetes mellitus Active Sravani Montez Not Available 11/25/2024 18: 26:59 Payers Encounter Date Sequence Insurance Name Policy Number Policy Riggs Covered Member ID Riggs Member ID Guarantor Name 01/06/2025 1 [facility] (MEDICARE REPLACEMENT/A DVANTAGE - HMO) [id number] Alec Ramirez [id number] Alec Ramirez Notes Date Note Type Note Provider Name and Address Organization Details Recorded Time 01/06/2025 text/html Mr. Ramirez is a 59-year-old man who is here after a fall. His leg weakness caused him to land on his left leg. He has a significant abrasion to his proximal left anterior leg. It has been increasing in redness and has some mild swelling with some tenderness. He denies any fevers. He has his MRI scheduled for tomorrow of his cervical spine to evaluate his leg and arm weakness. Harriet sandy MD [facility] [address], [place], [address], [place] - [facility] 01/06/2025 09:40:12
--- OUTSIDE RECORDS SUMMARY | 2025-01-14 07:55 | XMS_ITS | Data Portability ---
Author Organization [facility] Address [address] [place] [address] Care Team Providers Care [place] Intern Name Role Phone HARRIET LOCKHART Primary Care Provider VANDANA MCFARLAND OTHER [phone] Assessment No assessment recorded. Plan of Treatment Reminders Order Date Submit Date Provider Last Modified By Organization Details Last Modified Time Details Appointments None recorded. Lab CK (creatine kinase), total, serum 2024 025 [place] [facility], [address], [place], [place], [address], 12:11:57 erythrocyte sedimentati on rate by westergren method 2024 025 [place] [facility], [address], [place] [address], [place], [address], 5 12:11:56 C reactive protein, QN, serum or plasma 2024 025 [place] [facility], [address], [place] [address], [place], [address], 5 12:11:57 microorgani sm identificat ion, unspecified specimen 2024 025 [place] [facility], [address], [place], [place], [address], 13:29:48 Referral None recorded. Procedures None recorded. Surgeries None recorded. Imaging MRI, cervical spine, w/o contrast 2024 025 [email or web address] [facility] ([facility]), [address], [place], [address], 5 15:55:06 Medication Orders cephalexin 500 mg capsule 2024 025 [facility], [address], [place], [address], 5 09:35:09 valacyclovi r 1 gram tablet 2024 025 [facility], [address], [place], [address], 5 05:02:06 azithromyci n 500 mg tablet 2024 025 [facility], [address], [place], [address], 5 13:09:22 acidophilus 100 million cell-pectin , citrus 10 mg capsule 2024 025 [facility], [address], [place], [address], 5 10:03:44 Patient TargetsNo targets recorded. Patient Instructions Encounter Date Encounter Id Patient Instructions Last Modified By Organization Details Last Modified Time 11/11/2024 [id number] shingles: care instructions [email or web address] Not available 11/11/2024 13:22:44 rash: care instructions [email or web address] Not available 11/11/2024 13:22:44 type 2 diabetes: care instructions [email or web address] Not available 11/11/2024 13:22:44 Reason for Referral None Reported. Results Created Date Observation Date Name Description Value Unit Range Abnormal Flag Note LastModifiedBy Organization Detail LastModifiedTime 11/03/19 25 11/03/2024 CMP14 +EGFR glucose 228 mg/dL 70-99 above high normal Not Available [facility] ([facility]) [address] [facility] [place], [address], 11/03/2024 09:12:57 11/03/1911/03/2024 CMP14 +EGFR BUN 16 mg/dL 6-24 normal Not Available [facility] ([facility]) [address] [facility] [place], [address], 11/03/2024 09:12:57 11/03/1911/03/2024 CMP14 +EGFR creatinine 0.82 mg/dL 0.76-1 .27 normal Not Available [facility] ([facility]) [address] [facility], [place], [address], 11/03/2024 09:12:57 11/03/1911/03/2024 CMP14 +EGFR eGFR 101 mL/mi n/1.7 3 >59 normal Not Available [facility] ([facility]) [address] [facility], [place], [address], 11/03/2024 09:12:57 11/03/1911/03/2024 CMP14 +EGFR BUN/creatini ne ratio 20 9-20 normal Not Available [facility] ([facility]) [address] [facility], [place], [address], 11/03/2024 09:12:57 11/03/1911/03/2024 CMP14 +EGFR sodium 140 mmol/ L 134-14 4 normal Not Available [facility] ([facility]) [address] [facility] [place], [address], 11/03/2024 09:12:57 11/03/1911/03/2024 CMP14 +EGFR potassium 4.4 mmol/ L 3.5-5. 2 normal Not Available [facility] ([facility]) [address] [facility] [place], [address], 11/03/2024 09:12:57 11/03/1911/03/2024 CMP14 +EGFR chloride 103 mmol/ L 96-106 normal Not Available [facility] ([facility]) [address] [facility] [place], [address], 11/03/2024 09:12:57 11/03/1911/03/2024 CMP14 +EGFR carbon dioxide, total 19 mmol/ L 20-29 below low normal Not Available [facility] ([facility]) [address] [facility] [place], [address], 11/03/2024 09:12:57 11/03/1911/03/2024 CMP14 +EGFR calcium 10.0 mg/dL 8.7-10 .2 normal Not Available [facility] ([facility]) [address] [facility], [place], [address], 11/03/2024 09:12:57 11/03/1911/03/2024 CMP14 +EGFR protein, total 6.8 g/dL 6.0-8. 5 normal Not Available [facility] ([facility]) [address] [facility] [place], [address], 11/03/2024 09:12:57 11/03/1911/03/2024 CMP14 +EGFR albumin 3.9 g/dL 3.8-4. 9 normal Not Available [facility] ([facility]) [address] [place], [address], 11/03/2024 09:12:57 11/03/1911/03/2024 CMP14 +EGFR globulin, total 2.9 g/dL 1.5-4. 5 Not Available [facility] ([facility]) [address] [place], [address], 11/03/2024 09:12:57 11/03/1911/03/2024 CMP14 +EGFR bilirubin, total 0.5 mg/dL 0.0-1. 2 normal Not Available [facility] ([facility]) [address] [facility], [place], [address], 11/03/2024 09:12:57 11/03/1911/03/2024 CMP14 +EGFR alkaline phosphatase 100 IU/L 44-121 normal Not Available [facility] ([facility]) [address] [facility], [place], [address], 11/03/2024 09:12:57 11/03/1911/03/2024 CMP14 +EGFR AST (SGOT) 16 IU/L 0-40 normal Not Available [facility] ([facility]) [address] [facility], [place], [address], 11/03/2024 09:12:57 11/03/1911/03/2024 CMP14 +EGFR ALT (SGPT) 21 IU/L 0-44 normal Not Available [facility] ([facility]) [address] [facility], [place], [address], 11/03/2024 09:12:57 11/03/1911/03/2024 CBC WITH DIFFE RENTI AL/PL ATELE T WBC 7.1 x10e3 /uL 3.4-10 .8 normal Not Available [facility] ([facility]) [address] [place], [address], 11/03/2024 09:12:57 11/03/1911/03/2024 CBC WITH DIFFE RENTI AL/PL ATELE T RBC 4.69 x10e6 /uL 4.14-5 .80 normal Not Available [facility] ([facility]) [address] [place], [address], 11/03/2024 09:12:57 11/03/1911/03/2024 CBC WITH DIFFE RENTI AL/PL ATELE T hemoglobin 13.7 g/dL 13.0-1 7.7 normal Not Available [facility] ([facility]) [address] [place], [address], 11/03/2024 09:12:57 11/03/1911/03/2024 CBC WITH DIFFE RENTI AL/PL ATELE T hematocrit 43.2 % 37.5-5 1.0 normal Not Available [facility] ([facility]) [address] [place], [address], 11/03/2024 09:12:57 11/03/1911/03/2024 CBC WITH DIFFE RENTI AL/PL ATELE T MCV 92 fL 79-97 normal Not Available [facility] ([facility]) [address] [place], [address], 11/03/2024 09:12:57 11/03/1911/03/2024 CBC WITH DIFFE RENTI AL/PL ATELE T MCH 29.2 pg 26.6-3 3.0 normal Not Available [facility] ([facility]) [address] [place], [address], 11/03/2024 09:12:57 11/03/1911/03/2024 CBC WITH DIFFE RENTI AL/PL ATELE T MCHC 31.7 g/dL 31.5-3 5.7 normal Not Available [facility] ([facility]) [address] [place], [address], 11/03/2024 09:12:57 11/03/1911/03/2024 CBC WITH DIFFE RENTI AL/PL ATELE T RDW 13.1 % 11.6-1 5.4 Not Available [facility] ([facility]) [address] [place], [address], 11/03/2024 09:12:57 11/03/1911/03/2024 CBC WITH DIFFE RENTI AL/PL ATELE T platelets 204 x10e3 /uL 150-45 0 normal Not Available [facility] ([facility]) [address] [place], [address], 11/03/2024 09:12:57 11/03/19 25 11/03/2024 CBC WITH DIFFE RENTI AL/PL ATELE T neutrophils 57 % not estab. normal Not Available [facility] ([facility]) [address] [facility], [place], [address], 11/03/2024 09:12:57 11/03/19 25 11/03/2024 CBC WITH DIFFE RENTI AL/PL ATELE T lymphs 29 % not estab. normal Not Available [facility] ([facility]) [address] [facility], [place], [address], 11/03/2024 09:12:57 11/03/19 25 11/03/2024 CBC WITH DIFFE RENTI AL/PL ATELE T monocytes 12 % not estab. normal Not Available [facility] ([facility]) [address] [facility], [place], [address], 11/03/2024 09:12:57 11/03/19 25 11/03/2024 CBC WITH DIFFE RENTI AL/PL ATELE T eos 1 % not estab. normal Not Available [facility] ([facility]) [address] [facility], [place], [address], 11/03/2024 09:12:57 11/03/19 25 11/03/2024 CBC WITH DIFFE RENTI AL/PL ATELE T basos 0 % not estab. normal Not Available [facility] ([facility]) [address] [facility], [place], [address], 11/03/2024 09:12:57 11/03/19 25 11/03/2024 CBC WITH DIFFE RENTI AL/PL ATELE T immature cells DEHYDRATOR Not Available [facility] ([facility]) [address] [facility], [place], [address], 11/03/2024 09:12:57 11/03/19 25 11/03/2024 CBC WITH DIFFE RENTI AL/PL ATELE T neutrophils (absolute) 4.1 x10e3 /uL 1.4-7. 0 normal Not Available [facility] ([facility]) [address] [place], [address], 11/03/2024 09:12:57 11/03/19 25 11/03/2024 CBC WITH DIFFE RENTI AL/PL ATELE T lymphs (absolute) 2.0 x10e3 /uL 0.7-3. 1 normal Not Available [facility] ([facility]) [address] [facility], [place], [address], 11/03/2024 09:12:57 11/03/1911/03/2024 CBC WITH DIFFE RENTI AL/PL ATELE T monocytes(ab solute) 0.8 x10e3 /uL 0.1-0. 9 normal Not Available [facility] ([facility]) [address] [place], [address], 11/03/2024 09:12:57 11/03/19 25 11/03/2024 CBC WITH DIFFE RENTI AL/PL ATELE T eos (absolute) 0.1 x10e3 /uL 0.0-0. 4 normal Not Available [facility] ([facility]) [address] [facility], [place], [address], 11/03/2024 09:12:57 11/03/1911/03/2024 CBC WITH DIFFE RENTI AL/PL ATELE T baso (absolute) 0.0 x10e3 /uL 0.0-0. 2 normal Not Available [facility] ([facility]) [address] [place], [address], 11/03/2024 09:12:57 11/03/1911/03/2024 CBC WITH DIFFE RENTI AL/PL ATELE T immature granulocytes 1 % not estab. Not Available [facility] ([facility]) [address] [place], [address], 11/03/2024 09:12:57 11/03/19 25 11/03/2024 CBC WITH DIFFE RENTI AL/PL ATELE T immature grans (abs) 0.1 x10e3 /uL 0.0-0. 1 Not Available [facility] ([facility]) [address] [facility], [place], [address], 11/03/2024 09:12:57 11/03/19 25 11/03/2024 CBC WITH DIFFE RENTI AL/PL ATELE T NRBC DEHYDRATOR Not Available [facility] ([facility]) [address] [facility], [place], [address], 11/03/2024 09:12:57 11/03/1911/03/2024 CBC WITH DIFFE RENTI AL/PL ATELE T hematology comments: DEHYDRATOR Not Available [facility] ([facility]) [address] [facility], [place], [address], 11/03/2024 09:12:57 11/03/1911/03/2024 GI PROFI LE, STOOL , PCR campylobacte r Detect ed not detect ed abnormal Not Available [facility] ([facility]) [address] [place], [address], 11/03/2024 22:07:59 11/03/19 25 11/03/2024 GI PROFI LE, STOOL , PCR C difficile toxin A/B Not Detect ed not detect ed Not Available [facility] ([facility]) [address] [place], [address], 11/03/2024 22:07:59 11/03/19 25 11/03/2024 GI PROFI LE, STOOL , PCR plesiomonas shigelloides Not Detect ed not detect ed Not Available [facility] ([facility]) [address] [place], [address], 11/03/2024 22:07:59 11/03/19 25 11/03/2024 GI PROFI LE, STOOL , PCR salmonella Not Detect ed not detect ed Not Available [facility] ([facility]) [address] [place], [address], 11/03/2024 22:07:59 11/03/19 25 11/03/2024 GI PROFI LE, STOOL , PCR vibrio Not Detect ed not detect ed Not Available [facility] ([facility]) [address] [place], [address], 11/03/2024 22:07:59 11/03/19 25 11/03/2024 GI PROFI LE, STOOL , PCR vibrio cholerae Not Detect ed not detect ed Not Available [facility] ([facility]) [address] [place], [address], 11/03/2024 22:07:59 11/03/19 25 11/03/2024 GI PROFI LE, STOOL , PCR yersinia enterocoliti ca Not Detect ed not detect ed Not Available [facility] ([facility]) [address] [place], [address], 11/03/2024 22:07:59 11/03/19 25 11/03/2024 GI PROFI LE, STOOL , PCR enteroaggreg ative E coli Not Detect ed not detect ed Not Available [facility] ([facility]) [address] [place], [address], 11/03/2024 22:07:59 11/03/19 25 11/03/2024 GI PROFI LE, STOOL , PCR enteropathog enic E coli Not Detect ed not detect ed Not Available [facility] ([facility]) [address] [place], [address], 11/03/2024 22:07:59 11/03/19 25 11/03/2024 GI PROFI LE, STOOL , PCR enterotoxige valente E coli Not Detect ed not detect ed Not Available [facility] ([facility]) [address] [place], [address], 11/03/2024 22:07:59 11/03/19 25 11/03/2024 GI PROFI LE, STOOL , PCR shiga-toxin- producing E coli Not Detect ed not detect ed Not Available [facility] ([facility]) [address] [place], [address], 11/03/2024 22:07:59 11/03/19 25 11/03/2024 GI PROFI LE, STOOL , PCR E coli O157 Not applic able not detect ed Not Available [facility] ([facility]) [address] [place], [address], 11/03/2024 22:07:59 11/03/19 25 11/03/2024 GI PROFI LE, STOOL , PCR shigella/ent eroinvasive E coli Not Detect ed not detect ed Not Available [facility] ([facility]) [address] [place], [address], 11/03/2024 22:07:59 11/03/19 25 11/03/2024 GI PROFI LE, STOOL , PCR cryptosporid ium Not Detect ed not detect ed Not Available [facility] ([facility]) [address] [place], [address], 11/03/2024 22:07:59 11/03/19 25 11/03/2024 GI PROFI LE, STOOL , PCR cyclospora cayetanensis Not Detect ed not detect ed Not Available [facility] ([facility]) [address] [place], [address], 11/03/2024 22:07:59 11/03/19 25 11/03/2024 GI PROFI LE, STOOL , PCR entamoeba histolytica Not Detect ed not detect ed Not Available [facility] ([facility]) [address] [place], [address], 11/03/2024 22:07:59 11/03/19 25 11/03/2024 GI PROFI LE, STOOL , PCR giardia lamblia Not Detect ed not detect ed Not Available [facility] ([facility]) [address] [facility], [place], [address], 11/03/2024 22:07:59 11/03/19 25 11/03/2024 GI PROFI LE, STOOL , PCR adenovirus F 40/41 Not Detect ed not detect ed Not Available [facility] ([facility]) [address] [facility], [place], [address], 11/03/2024 22:07:59 11/03/19 25 11/03/2024 GI PROFI LE, STOOL , PCR astrovirus Not Detect ed not detect ed Not Available [facility] ([facility]) [address] [facility], [place], [address], 11/03/2024 22:07:59 11/03/19 25 11/03/2024 GI PROFI LE, STOOL , PCR norovirus GI/gii Not Detect ed not detect ed Not Available [facility] ([facility]) [address] [facility], [place], [address], 11/03/2024 22:07:59 11/03/19 25 11/03/2024 GI PROFI LE, STOOL , PCR rotavirus A Not Detect ed not detect ed Not Available [facility] ([facility]) [address] [facility], [place], [address], 11/03/2024 22:07:59 11/03/19 25 11/03/2024 GI PROFI LE, STOOL , PCR sapovirus Not Detect ed not detect ed Not Available [facility] ([facility]) [address] [facility], [place], [address], 11/03/2024 22:07:59 11/03/19 25 11/02/2024 hemog lobin (Hb), finge rstic k, blood HGB 12.[address] [facility] [address], [place], [address], 11/02/2024 09:26:12 11/03/19 25 11/02/2024 HbA1c (hemo globi n A1c), blood HbA1C 9.4 % Not Available [address] Mckenna [address], [place], [address], 11/02/2024 09:20:34 11/03/19 25 11/02/2024 gluco se, finge rstic k, blood Blood Glucose: mg/dl 219 Not Available [facility] [address], [place] [place], [address], 11/02/2024 09:20:49 11/03/19 25 11/02/2024 gluco se, finge rstic k, blood Reference Range (60-100) abnorm al Not Available [facility] [address], [place], [address], 11/02/2024 09:20:49 11/12/19 25 11/14/2024 AEROB IC BACTE RIAL CULTU RE aerobic bacterial culture Final report Not Available [facility] ([facility]) [address] [place], [address], 11/17/2024 13:29:48 11/12/19 25 11/14/2024 AEROB IC BACTE RIAL CULTU RE result 1 Mixed skin jose juan Not Available [facility] ([facility]) [address] [place], [address], 11/17/2024 13:29:48 12/14/19 25 12/14/2024 SEDIM ENTAT ION RATE- WESTE RGREN sedimentatio n rate-westerg karen 10 mm/HR 0-30 normal Not Available [facility] ([facility]) [address] [place], [address], 12/14/2024 12:11:56 12/14/19 25 12/14/2024 CREAT INE KINAS E,TOT AL creatine kinase,total 83 U/L 41-331 normal Not Available [facility] ([facility]) [address] [facility], [place], [address], 12/14/2024 12:11:56 12/14/1912/14/2024 C-GARCÍA CTIVE PROTE IN, QUANT C-reactive protein, quant 1 mg/L 0-10 normal Not Available [facility] ([facility]) [address] [facility], [place], [address], 12/14/2024 12:11:57 Result Notes None recorded. Problems Name Problem SNOMED Code Status Onset Date Resolution Date Notes Provider Name and Address Organization Details Recorded Time Exposure to SARS-CoV -2 Completed 09/16/2019 Removal Reason: Problem added by user from the COVID-19 watch flag Sravani Montez RN [address], [place], [address] , [place] - [facility] 0 10:59:41 Diabetes mellitus 26364503 Active 2015 Not Available [facility] 2 04:29:02 Body mass index 30+ - obesity 297444773 Active 2015 Not Available [facility] 2 04:29:02 Myocardi al infarcti on 87134540 Active 2015 Not Available [facility] 2 04:29:02 Heart disease 53554371 Active 2015 Not Available [facility] 2 04:29:02 Polyp of colon 55190808 Active 2016 f/u due 5 yrs Oct 2021 Not Available [facility] 2 04:29:02 Immuniza tion refused Active 2016 Not Available [facility] 2 04:29:02 History of tobacco use 74974033849 03 Active 2017 Not Available [facility] 2 04:29:02 Retinopa thy due to diabetes mellitus 3217840 Active 2018 Not Available [facility] 2 04:29:02 COVID-19 569516409 Active 2020 Not Available [facility] 04:29:02 Problem Notes None recorded. Procedures Surgical History Date Name Laterality Status Provider Name and Address Organization Details Recorded Time 01/13/20 Advance Care Planning completed Natalia Camargo [place] - [facility] 01/13/2024 10:52:03 01/13/20 24 Functional Status Assessed completed Natalia WINTERS - [facility] 024 10:52:03 01/01/20 A1C level [...] Ndiayee [place] - [facility] 12/10/2019 15:54:00 11/05/19 Diastolic B/P 80-89 mm Hg completed Analia Ndiayee [place] - [facility] 11/05/2019 15:45:06 11/05/19 20 Systolic B/P 130-139 mm Hg completed Analia Burr [place] - [facility] 11/05/2019 15:45:04 08/12/20 20 Cardiac Cath completed Analia Burr [place] [...] Systolic B/P 130-139 mm Hg completed Mellisa Vincentneo [place] - [facility] 07/16/2019 15:53:13 04/05/19 20 [...] completed Jay Cesar RN [address], [place], [address], [facility] - [facility] 04/13/2018 09:58:41 CABG completed Carolina Sosa [place] - [facility] 1 04/02/2015 08:36:22 biopsy of prostate completed Sravani Montez RN [address], [place], [address], [facility] - [facility] 03/09/2019 14:21:52 Imaging Results None [...] Disconti nued on: 05/19/19 15 10:45AM; User: [email or web address] Not Available Not Available Not Available gabapenti [...] on: 09/06/19 15 10:29AM; User: [email or web address] Completi on: 09/12/19 15;Print ed: 06/14/19 15 [...] completed Not Available Not Available Not Available Talisheek 5 mg-325 mg tablet Take 1 tablet [...] oral tablet;R ecorded Status: Recorded on: 04/21/19 10:29AM; Disconti nued Status: Disconti nued on: 06/14/19 10:58AM; User: radha Hickmani on: 08/20/19;Print ed: 04/21/19 Not Available Not Available Not Available metoprolo [...] 14 Not Available Not Available Not Available Talisheek 09/14 completed Talisheek oral;Rec orded Status: Recorded on: 12/10/19 15 9:12AM;D iscontin ued Status: Disconti nued on: 09/15/19 16 2:09PM;U ser: [email or web address];In dication : Pain - ([id number]) Not Available Not Available Not Available [...] Status: Recorded on: 07/24/19 16 9:06AM;U ser: [email or web address] p;Est. Completi on: 01/20/20 16;Print ed: 07/24/19 16 [...] iscontin ued Status: Disconti nued on: 03/07/20 11:11AM; User: [email or web address] p;Printe d: 11/19/19 Not [...] Disconti nued on: 03/07/20 15 11:13AM; User: [email or web address] p;Est. Completi on: 06/02/19 16;Indic ation: Type [...] nued on: 05/19/19 15 10:45AM; User: [email or web address] p;Est. Completi on: 05/05/19 15;Indic ation: Type [...] Available Not Available Not Available Dexcom G6 Portable Canteen Operator USE DIRECTED active Not Available Not Available No t Available Dexcom G6 Transmitt er device USE DIRECTED 2022 active Not Available Not Available Not Avai lable FreeStyle Carlos 14 Day [place] USE DIRECTED active Not Available Not Available [...] Available Not Available Not Available casirivim ab ([id number]) 120 mg/mL intraveno us solution (1 of 2) (EUA) as direted 05/28 completed Not Available Not Available Not Available Ozempic 0.25 mg or 0.5 mg (2 mg/3 mL) subcutane ous pen injector INJECT 0.5 MG SUBCUTAN EOUSLY EVERY WEEK active Not Available Not Available No t Available Personale 3 Plus Sensor device CHANGE SENSOR EVERY [...] Details Last Updated DateTime 5 193.04 cm 36 kg/m2 830767. 34 g 96.1 [degF] 71 /min 98 % 98 % 18 /min 0 126/80 mm[Hg] Natalia [facility] 5 09:45:37 Date Recorded Body height Body mass index (BMI) Body weight Body temperature Heart rate Oxygen saturation Oxygen saturation in Arterial blood by Pulse oximetry Respiratory rate Pain severity - 0-10 verbal numeric rating [Score] - Reported Systolic And Diastolic Provider Name and Address Organization Details Last Updated DateTime 5 193.04 cm 36.4 kg/m2 990270. 12 g 96.9 [degF] 65 /min 98 % 98 % 16 /min 0 130/80 mm[Hg] Natalia [facility] 5 13:06:36 Date Recorded Body height Body mass index (BMI) Body weight Body temperature Respiratory rate Pain severity - 0-10 verbal numeric rating [Score] - Reported Oxygen saturation Oxygen saturation in Arterial blood by Pulse oximetry Heart rate Systolic And Diastolic Provider Name and Address Organization Details Last Updated DateTime 5 193.04 cm 36 kg/m2 334084. 34 g 97.3 [degF] 16 /min 0 99 % 99 % 74 /min 136/80 mm[Hg] Sravani Montez, RN [address], [place], [address], [place] - [facility] 5 09:37:26 Date Recorded Body height Body mass index (BMI) Body weight Body temperature Heart rate Oxygen saturation Oxygen saturation in Arterial blood by Pulse oximetry Respiratory rate Pain severity - 0-10 verbal numeric rating [Score] - Reported Systolic And Diastolic Provider Name and Address Organization Details Last Updated DateTime 5 193.04 cm 37.5 kg/m2 463121. 45 g 97.5 [degF] 82 /min 99 % 99 % 16 /min 0 132/80 mm[Hg] Natalia Raman [place] - [facility] 5 13:31:37 Date Recorded Body height Body mass index (BMI) Body weight Body temperature Heart rate Oxygen saturation Oxygen saturation in Arterial blood by Pulse oximetry Respiratory rate Pain severity - 0-10 verbal numeric rating [Score] - Reported Systolic And Diastolic Provider Name and Address Organization Details Last Updated DateTime 5 193.04 cm 37.5 kg/m2 147564. 45 g 96.8 [degF] 79 /min 99 % 99 % 18 /min 0 112/80 mm[Hg] Mellisa Josh [facility] 5 09:12:22 Social History Question Answer Notes LastModified by Organizat ion Details LastModified Time Tobacco Smoking Status Current Some Day Sm[facility] 01/07/2020 16:10:08 Do You Have An [...] Of Your Most Recent Tobacco Screening? 12/13/2024 [email or web address] Information not available 12/13/2024 How Many Children [...] Date Was Tobacco Cessation Counseling Provided? 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 Information not available 02/05/2016 Do you [...] 09:00:16 Medical History Condition Response Diabetes Y Myocardial Infarction Y Vitamin D Deficiency Y Immunizations Vaccine Type Date Status Note Provider Name and Address Organization Details Recorded Time Tdap 015 completed Not Available [facility] 02/28/2023 15:05:32 COVID-19, mRNA, LNP-S, PF, 100 mcg/0.5mL dose or 50 mcg/0.25mL dose 022 completed JORGE Garcia - [facility] 03/27/2021 10:59:29 COVID-19, mRNA, LNP-S, PF, 100 mcg/0.5mL dose or 50 mcg/0.25mL dose 022 completed Sravani Montez RN [address], [place], [address], [place] - [facility] 05/28/2021 15:59:24 Influenza, split virus, quadrivalent, PF 022 cancelled patient objection Harriet espana MD [address], [place], [address], [place] - [facility] 12/31/2021 09:29:59 pneumococcal polysaccharide PPV23 015 completed Not Available [facility] 02/28/2023 15:05:32 Past Encounters Encounter ID Performer Location Encounter Start Date Encounter Closed Date Diagnosis/Indication Diagnosis SNOMED-CT Code Diagnosis ICD10 Code Diagnosis IMO Codes Diagnosis Note [id number] Harriet mancera MD On license of [facility] [address] [place] [address] 02/05/2016 08:49:20 02/05/2016 18:17:26 Diabetes mellitus 26624098 E11.9 Pain 09942807 R52 Screening for malignant neoplasm of colon 805361755 Z12.11 Pain of sa croiliac joint 028729443 M53.3 Vaccine de clined by patient 5932016781 02 Z28.21 [id number] Harriet mancera MD On license of [facility] [address] [place] [address] 05/16/2016 16:43:12 05/20/2016 15:22:13 Diabetes mellitus 30942746 E11.9 Acute bact erial sinusitis 37661035 J01.90 Knee pain 73646762 M25.5 69 [id number] Harriet mancera MD On license of [facility] [address] [place] [address] 07/01/2016 10:15:18 07/01/2016 11:54:53 Concussion injury of brain 743504049 S06.0X0A Pain in left knee 523186 2245 72428 M25.562 Pain of sh oulder region 37606127 M25.511 Tendinitis 67428243 M77. 9 Screening for malignant neoplasm of colon 376893913 Z12.11 [id number] Avis Gomez PA-C On license of [facility] [address] [place] [address] [place] [address] 09/06/2016 13:03:27 09/06/2016 14:22:10 Adult health examination 296863207 Z00.00 [id number] Harriet mancera MD On license of [facility] [address] [place] [address] 10/03/2016 12:58:46 10/03/2016 13:33:42 Erysipelas 97746128 A46 [id number] Harriet mancera MD [place] [address] [address] [facility] [place] [address] 10/08/2016 09:42:53 10/08/2016 11:27:51 Coronary arteriosclerosis 36988515 I25.10 Erysipelas 71069430 A46 improving, nearly resolved [id number] Harriet mancera MD [address] [place] [facility] [address] 10/28/2016 12:57:09 10/28/2016 14:16:09 Hematochezia 806036238 K92.1 stop aspirin and plavix, awiting GI appointshaan t, contacted cardiology and they agreed with plan to hold plavix and asa [id number] Harriet mancera MD [place] [address] [place] [address] 11/04/2016 10:38:00 11/04/2016 11:15:03 Hyperkalemia 03128486 E87.5 [id number] Harriet mancera MD [place] [address] [address] [facility] [place] [address] 11/21/2016 10:37:00 11/21/2016 11:15:56 Coronary arteriosclerosis 06407346 I25.10 Diabetes mellitus 618950 09 E11.9 [id number] Harriet mancera MD [place] [address] [facility] [place] [address] 01/10/2017 09:12:08 01/10/2017 10:34:20 Immunization refused 458584405 Z28.21 Body mass index 30+ - obesity 374400878 Z68.39 Diabetes mellitus 765594 09 E11.9 Heart disease 39070458 I 51.9 Tinea pedis 4538624 B35. 3 [id number] Harriet mancera MD On license of [facility] [address] [address] 01/16/2017 08:48:50 01/16/2017 10:16:13 Erysipelas 42939777 A46 improving, nearly resolved [id number] Harriet mancera MD [address] [address] 01/17/2017 08:44:48 01/17/2017 09:15:05 Diabetes mellitus 03776068 E11.9 pt given 20 units of tresiba in the office this morning Erysipelas 78446603 A46 improving, finish all antibiotic s [id number] Harriet mancera MD [address] [address] 01/24/2017 08:37:03 01/24/2017 09:05:30 Diabetes mellitus 96741507 E11.9 [id number] Harriet mancera MD [address] [address] 04/07/2017 09:16:19 04/07/2017 09:52:00 Diabetes mellitus 65744684 E11.9 Acute bact erial bronchitis 603804088 J20.9 [id number] Harriet mancera MD [address] [address] 04/28/2017 08:28:28 04/28/2017 09:03:32 Diabetes mellitus 49999296 E11.9 Immunization refused 275 525122 Z28.21 Body mass index 30+ - obesity 257131805 Z68.39 [id number] Harriet mancera MD [address] [address] 06/02/2017 08:26:40 06/02/2017 09:51:12 Diabetes mellitus 03800541 E11.9 Tobacco user 988353585 Z 72.0 [id number] Harriet mancera MD On license of [facility] [address] [place] [address] 06/17/2017 09:20:32 06/17/2017 10:35:11 Venereal disease screening 921392580 Z11.3 Screening for malignant neoplasm of prostate 473543011 Z12.5 Long-term drug therapy 436230060 Z79.899 Osteoarthritis 698960862 M19.90 Lymphadenopathy 24996001 R59.1 [id number] Harriet mancera MD [address] [address] 06/24/2017 09:11:03 06/24/2017 09:52:39 Diabetes mellitus 61540596 E11.9 Hyperlipidemia 61362159 E78.5 [id number] Avis Gomez PA-C [address] [address] 09/25/2017 15:09:50 09/25/2017 15:37:48 Body mass index 30+ - obesity 886005151 Z68.39 Lymphadenopathy 20367535 R59.0 [id number] Harriet mancera MD [address] [address] 10/17/2017 11:10:59 10/17/2017 12:14:48 History of tobacco use 2930626046 103 Z87.891 Body mass index 30+ - obesity 691783669 Z68.39 Diabetes mellitus 020781 09 E11.9 Benign pro static hyperplasia 320377497 N40.1 Viral gastroenteritis 11 7626005 A08.4 Long-term drug therapy 408018961 Z79.899 Vitamin D deficiency 347 76876 E55.9 Disorder o f vitamin B12 515838318 E53.8 [id number] Harriet mancera MD [address] [address] 10/31/2017 08:31:42 10/31/2017 10:09:02 History of tobacco use 1515498216 103 Z87.891 Body mass index 30+ - obesity 537209818 Z68.39 Osteoarthritis 005106476 M19.90 Diabetes mellitus 273706 09 E11.9 Heart disease 19971839 I 51.9 Renewal of prescription 412211862 Z76.0 [id number] Harriet mancera MD On license of [facility] [address] [place] [address] 11/07/2017 08:30:43 11/07/2017 09:04:33 Diabetes mellitus 33829808 E11.9 Body mass index 30+ - obesity 056386055 Z68.39 [id number] Harriet mancera MD On license of [facility] [address] [place] [address] 11/21/2017 08:44:46 11/21/2017 09:24:58 Diabetes mellitus 51059204 E11.9 continue Bcise, lianet sugars in 2 weeks [id number] Harriet mancera MD On license of [facility] [address] [place] [address] 01/22/2018 08:55:44 01/22/2018 10:26:31 Diabetes mellitus 44250228 E11.9 continue Bcise, lianet sugars in 2 weeks Body mass index 30+ - obesity 262343146 Z68.39 Neck pain 15411813 M54.2 Chronic back pain 815117 002 G89.29 [id number] Harriet mancera MD On license of [facility] [address] [place] [address] 02/20/2018 15:33:32 02/20/2018 16:29:53 Diabetes mellitus 47215444 E11.9 [id number] Harriet mancera MD On license of [facility] [address] [place] [address] 02/27/2018 15:26:35 02/27/2018 16:06:03 Diabetes mellitus 27107937 E11.9 [id number] Harriet mancera MD [address] [address] 03/06/2018 15:29:06 03/06/2018 16:20:06 History of tobacco use 4603389722 103 Z87.891 Body mass index 30+ - obesity 282646366 Z68.39 Immunization refused 275 702284 Z28.21 Diabetes mellitus 020734 09 E11.9 [id number] Harriet mancera MD [address] [address] 03/13/2018 15:30:56 03/13/2018 15:58:21 Diabetes mellitus 08047673 E11.9 stay on 40 units [id number] Harriet mancera MD [address] [address] 03/27/2018 16:01:48 03/27/2018 16:39:06 History of tobacco use 8443255184 103 Z87.891 Body mass index 30+ - obesity 961582903 Z68.39 Generalize d anxiety disorder 18451634 F41.1 Diabetes mellitus 297865 09 E11.9 stay on 40 units [id number] Avis Gomez PA-C [address] [address] 04/03/2018 09:38:52 04/03/2018 09:58:53 Upper respiratory infection 88997270 J06.9 [id number] Harriet mancera MD [address] [address] 04/07/2018 13:48:51 04/07/2018 14:45:36 Cough 81531842 R05 Body mass index 30+ - obesity 698110603 Z68.39 History of tobacco use 1379235028 103 Z87.891 Acute bact erial bronchitis 172562310 J20.9 [id number] Harriet mancera MD [address] [address] 04/17/2018 15:36:28 04/17/2018 16:24:16 Cough 77012868 R05 Acute otitis externa 302 76935 H60.327 [id number] Harriet mnacera MD On license of [facility] [address] [address] 04/28/2018 15:52:59 04/28/2018 16:25:24 Acute otitis externa 19125668 H60.930 [id number] Harriet mancera MD On license of [facility] [address] [address] 05/22/2018 15:36:59 05/22/2018 15:58:15 Acute bacterial sinusitis 12260068 J01.90 [id number] Harriet mancera MD On license of [facility] [address] [address] 08/10/2018 09:56:06 08/10/2018 10:53:02 Diabetes mellitus 32491319 E11.9 stay on 40 units [id number] Harriet mancera MD On license of [facility] [address] [address] 09/04/2018 12:52:53 09/04/2018 13:12:29 Diabetes mellitus 47686185 E11.9 [id number] Harriet mancera MD On license of [facility] [address] [address] 10/02/2018 14:39:42 10/02/2018 15:40:14 Diabetes mellitus 42904069 E11.9 [id number] Harriet mancera MD On license of [facility] [address] [address] 12/04/2018 08:53:04 12/04/2018 09:42:31 Heart disease 95409126 I51.9 Diabetes mellitus 414292 09 E11.9 Increased frequency of urination 404287395 R35.0 Long-term drug therapy 793427566 Z79.899 Screening for malignant neoplasm of prostate 354597408 Z12.5 Hypercholesterolemia 136 91648 E78.00 Neuropathy due to diabetes mellitus 850310035 E11.40 likely back pain is related to his neuropathy [id number] Harriet mancera MD On license of [facility] [address] [facility] [address] 12/18/2018 10:50:54 12/18/2018 11:33:51 Abdominal pain 05916560 R10.9 [id number] Harriet mancera MD On license of [facility] [address] [facility] [address] 01/11/2019 15:50:41 01/11/2019 16:56:29 Abdominal pain 99043248 R10.9 [id number] Harriet mancera MD On license of [facility] [address] [place] [address] 02/04/2019 13:33:23 02/04/2019 14:02:50 Diabetes mellitus 78808608 E11.9 Hernia of anterior abdominal wall 231408240 K43.9 [id number] Harriet mancera MD On license of [facility] [address] [facility] [place] [place] [address] 03/09/2019 14:12:36 03/09/2019 14:36:44 Diabetes mellitus 08758994 E11.9 [id number] Harriet mancera MD On license of [facility] [address] [facility] [address] 04/05/2019 13:35:08 04/05/2019 14:30:35 Dental abscess 210559231 K04.7 [facility][id number] Avis Gomez PA-C On license of [facility] [address] [place] [address] 04/07/2019 08:32:49 04/07/2019 09:17:24 Adult health examination 324685964 Z00.00 [id number] Harriet mancera MD On license of [facility] [address] [facility] [address] 07/16/2019 15:47:04 07/16/2019 16:21:18 Diabetes mellitus 82514828 E11.9 Body mass index 40+ - severely obese 828239275 Z68.41 Nicotine dependence 5629 4008 F17.200 Benign pro static hyperplasia 957860241 N40.1 [id number] Harriet mancera MD On license of [facility] [address] [facility] [place] [place] [address] 09/06/2019 15:39:51 09/06/2019 16:06:24 Exposure to viral disease 8798687850 61526 Z20.037 [id number] Harriet mancera MD On license of [facility] [address] [facility] [place] [place] [place] [address] 09/14/2019 09:09:18 09/14/2019 12:00:21 Diabetes mellitus 00590381 E11.9 Type 2 evie betes mellitus 08255291 E11.9 [id number] Harriet mancera MD On license of [facility] [address] [facility] [place] [place] [address] 09/17/2019 14:09:36 09/17/2019 14:31:11 Diabetes mellitus 53385928 E11.9 continue current regimen [id number] Harriet mancera MD On license of [facility] [address] [facility] [place] [place] [address] 10/04/2019 11:19:02 10/04/2019 11:52:34 Diabetes mellitus 45879291 E11.9 continue current regimen Low back pain 997714887 M54.5 Type 2 evie betes mellitus 83923309 E11.9 Prostate s pecific antigen above reference range 771721044 R97.20 [id number] Harriet mancera MD On license of [facility] [address] [place] [place] [address] 11/05/2019 15:33:12 11/05/2019 16:00:26 Diabetes mellitus 69389139 E11.9 continue current regimen [id number] Harriet mancera MD On license of [facility] [address] [place] [place] [address] 12/10/2019 15:43:02 12/10/2019 16:21:41 Diabetes mellitus 06353247 E11.9 continue current regimen Type 2 evie betes mellitus 88473498 E11.9 will stay on basaglar 70 units at night and the humalog 60 units three times a day for any glucose above 150. Vitamin D deficiency 347 25624 E55.9 Disorder o f vitamin B12 801089330 E53.8 Long-term drug therapy 315214561 Z79.899 Fatigue 20834795 R53.83 [id number] Harriet mancera MD [address] [address] 01/07/2020 15:45:42 01/07/2020 16:19:19 Diabetes mellitus 11586027 E11.9 continue current regimen, keep up the current exercise routine, diabetic diet Low back pain 727774192 M54.5 [id number] Harriet mancera MD [address] [address] 06/16/2020 16:15:47 06/19/2020 09:09:22 Diabetes mellitus 37164127 E11.9 continue current regimen, keep up the current exercise routine, diabetic diet Lumbago with sciatica 20 7441434 M54.40 [id number] Harriet mancera MD [address] [address] 07/13/2020 14:56:48 07/13/2020 15:49:58 Lumbago with sciatica 865893790 M54.40 [id number] Harriet mancera MD [address] [address] 10/02/2020 15:13:50 10/02/2020 16:30:44 Fever 361841043 R50.9 Diabetes mellitus 306532 09 E11.9 continue current regimen, keep up the current exercise routine, diabetic diet Diarrhea 18584207 R19.7 Nausea and vomiting 1691999 R11.2 [id number] Harriet mancera MD [address] [address] 10/19/2020 14:34:50 10/19/2020 15:25:45 Diabetes mellitus 57915219 E11.9 sugars are running high, he was using his humalog at night and his basaglar during the day. He is going to switch them around.and lianet his sugar in 2 weeks, call with any concerns Low back pain 909097802 M54.5 Coronary arteriosclerosis 43078529 I25.10 Benign pro static hyperplasia 086278873 N40.1 Vitamin D deficiency 347 74779 E55.9 Gastroesop hageal reflux disease 815406679 K21.9 [id number] Harriet mancera MD On license of [facility] [address] [place] [address] 12/05/2020 15:48:45 12/05/2020 16:46:57 Viral screening 333194350 Z11.52 COVID-19 257572082 U07.1 quarantine instructio ns given to patient, patient voiced understand ing.pt instructed to increase fluid intake to decrease chances of dehydratio n, tylenol or ibuprofen for fever or body aches, if any sob or concerning symptoms please call the office or go to the ER if the office is not available for questions [id number] Harriet mancera MD On license of [facility] [address] [place] [address] 12/11/2020 09:57:06 12/11/2020 10:35:14 COVID-19 420751610 U07.1 quarantine instructio ns given to patient, patient voiced understand ing.pt instructed to increase fluid intake to decrease chances of dehydratio n, tylenol or ibuprofen for fever or body aches, if any sob or concerning symptoms please call the office or go to the ER if the office is not available for questions or go to the ER for evaluation [id number] Harriet mancera MD On license of [facility] [address] [place] [address] 12/12/2020 09:30:19 12/12/2020 11:09:41 COVID-19 839558705 U07.1 quarantine instructio ns given to patient, [...] evaluation Uncontroll ed type 2 diabetes mellitus 031140876 E11.65 pt informed to keep blood glucose down below 611 [id number] Harriet mancera MD On license of [facility] [address] [place] [address] 12/14/2020 09:33:34 12/14/2020 11:01:31 COVID-19 927026829 U07.1 pt is feeling much better today, he says he is not sob and his sugars are under better control. He is drinking plenty of fluids and has not been running a fever. [id number] Harriet mancera MD On license of [facility] [address] [place] [address] 12/18/2020 09:36:34 12/18/2020 10:20:44 COVID-19 435453284 U07.1 pt is feeling much better today, he says he is not as sob and his sugars are under better control. He is drinking plenty of fluids and has not been running a fever. He is to finish all his steroids and antibiotic s, continue his breathing treatments and lianet in one week. Chronic ki dney disease stage 3 970061880 N18.30 [id number] Harriet mancera MD On license of [facility] [address] [place] [address] 12/22/2020 09:29:42 12/22/2020 12:37:26 COVID-19 244111417 U07.1 pt is feeling much better today, he says he is not as sob and his sugars are under better control. He is drinking plenty of fluids and has not been running a fever. He is to finish all his steroids and antibiotic s, continue his breathing treatments and return to work on 12/26/2020 [id number] Harriet mancera MD On license of [facility] [address] [address] 03/27/2021 10:03:21 03/27/2021 13:16:20 Cough 58145864 R05.9 Administra tion of SARS-CoV-2 antigen vaccine 705025544 Z23 Viral syndrome 376658526 B34.9 pt needs symptomati c management [id number] Harriet mancera MD [place] [address] [address] 05/28/2021 13:51:39 05/28/2021 16:28:04 Diabetes mellitus 49007253 E11.9 pt last filled his basaglar and humalog in December and November respective ly, so he is not using these regularly. He is filling his Jardiance and Janumet regularly. His sugars will not come under control unless he is using his insulin regularly. 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 Abdominal pain 91887850 R10.9 Right flank pain 3872413 09 R10.9 Administra tion of SARS-CoV-2 mRNA vaccine 5274721537 Z23 [id number] Harriet mancera MD On license of [facility] [address] [address] 06/05/2021 14:42:16 06/05/2021 15:44:55 Low back pain 689742935 M54.50 Diarrhea 90418557 R19.7 [id number] Harriet mancera MD On license of [facility] [address] [address] 07/19/2021 13:00:21 07/19/2021 14:31:38 Diabetes mellitus 37363368 E11.9 hgb a1c is slightly decreased, will add trulicity, lianet sugars in 2 weeks [id number] Harriet mancera MD [address] [address] 08/03/2021 16:17:52 08/03/2021 16:46:02 Diabetes mellitus 11056804 E11.9 stay on trulicity weeklystay on basaglar nightlyuse humalog sliding scale as neededuse carlos glucometer to monitor sugarscome back in one month to lianet sugars [id number] Harriet mancera MD On license of [facility] [address] [place] [address] [place] [address] 10/01/2021 08:35:03 10/01/2021 09:19:53 General examination of patient 923685811 Z00.00 Hyperlipid emia screening 702871659 Z13.220 Screening for malignant neoplasm of prostate 976375127 Z12.5 Endocrine/ metabolic screening 643630830 Z13.228 Exercises education, guidance, and counseling 363253726 Z71.82 Dietary ma nagement surveillance 305024879 Z71.3 Diabetes mellitus 370535 09 E11.9 stay on trulicity weeklystay on basaglar nightlyuse humalog sliding scale as neededuse carlos glucometer to monitor sugarscome back in one month to lianet sugars History of polyp of colon 753582948 Z86.010 Vitamin D deficiency 347 55961 E55.9 Disorder o f vitamin B12 568069142 E53.8 [id number] Harriet mancera MD On license of [facility] [address] [place] [address] [place] [address] 12/31/2021 08:43:38 12/31/2021 09:53:03 Diabetes mellitus 80501330 E11.9 stay on trulicity weeklystay on basaglar nightlyuse humalog sliding scale as neededuse carlos glucometer to monitor sugarscome back in one month to lianet sugars Lichen sim plex chronicus 22553867 L28.0 Vaccine de clined by patient 8091398327 02 Z28.21 [id number] Harriet mancera MD On license of [facility] [address] [place] [address] [place] [address] 05/20/2022 09:17:45 05/20/2022 10:26:59 Diabetes mellitus 89407323 E11.9 stay on trulicity weeklystay on basaglar nightlyuse humalog sliding scale as neededuse carlos glucometer to monitor sugarscome back in one month to lianet sugars [id number] Harriet mancera MD On license of [facility] [address] [address] 07/22/2022 14:14:30 07/22/2022 15:20:44 Body mass index 30+ - obesity 131391251 Z68.38 Obesity 728578437 E66.9 Viral screening 36464474 4 Z11.52 Lumbago with sciatica 20 2094763 M54.40 Allergic rhinitis 255834 04 J30.9 [id number] Harriet mancera MD [place] [address] [address] 07/29/2022 14:42:29 07/29/2022 16:08:34 Low back pain 619860016 M54.50 Degenerati on of lumbar intervertebral disc 01695739 M51.36 [id number] Harriet mancera MD [address] [address] 02/28/2023 15:01:59 02/28/2023 16:04:11 Diabetes mellitus 70646819 E11.9 Acute otit is externa of left ear 8243176550 794527 H60.392 [id number] Avis Gomez PA-C [address] [address] 06/30/2023 10:30:25 06/30/2023 11:00:02 Acute sinusitis 26538412 J01.90 [id number] Harriet mancera MD [place] [address] [address] 09/01/2023 13:12:14 09/01/2023 16:10:46 Diabetes mellitus 34730942 E11.9 Body mass index 30+ - obesity 129622265 Z68.38 Obesity 760391644 E66.9 Low back pain 501036818 M54.50 Rib pain 552151817 R07.8 1 [id number] Harriet mancera MD [place] [address] [address] 09/05/2023 14:32:58 09/05/2023 15:06:33 Cough 49866135 R05.9 Viral screening 33010564 4 Z11.52 Acute bact erial bronchitis 788733173 J20.9 [id number] Harriet mancera MD On license of [facility] [address] [address] 01/13/2024 10:47:13 01/13/2024 12:37:12 Adult health examination 509929681 Z00.00 Depression screening 171 806247 Z13.31 A depression screening was completed via a standardiz ed screening tool. Depression screening score is zero, no further action needed. Examinatio n of blood pressure 110930751 Z01.30 Diet education 84650163 Z71.3 Counseling 289610323 Z71 .82 Exercise counseling . Patient encouraged to exercise 30 minutes 5 days a week. At [facility] ed risk for falls 102491976 Z91.81 STEADI FAST screening score of __2 ___. No further action needed Advance care planning 71 0427900 Z71.89 Diabetes mellitus 998534 09 E11.9 Vaccination declined 123 5633340 Z28.21 Seasonal flu vaccine offered and declined Screening for malignant neoplasm of prostate 647250403 Z12.5 Long-term drug therapy 380877365 Z79.899 Vitamin D deficiency 347 54220 E55.9 Disorder o f vitamin B12 487250310 E53.8 Tobacco user 783962011 Z 72.0 Body mass index 30+ - obesity 976134144 Z68.38 [id number] Harriet mancera MD On license of [facility] [address] [facility] [place] [place] [address] 02/03/2024 14:34:45 02/03/2024 15:43:09 Viral screening 985466769 Z11.52 Cough 83780920 R05.9 Acute bact erial bronchitis 135703766 J20.9 [id number] Harriet mancera MD On license of [facility] [address] [place] [address] 05/10/2024 15:30:12 05/10/2024 16:30:23 Cough 67657559 R05.9 Viral screening 24319036 4 Z11.52 Influenza caused by Influenza A virus 904474613 J09.X2 [id number] Harriet mancera MD [address] [address] 05/18/2024 09:45:29 05/18/2024 10:54:15 Cough 45763997 R05.9 Acute bronchiolitis 5505 005 J21.9 He says his breathing was much improved after a duoneb treatment. I instructed him to do 4 treatments a day and start his antibiotic s and steroids and lianet in 2 day. Come back sooner if any worsening symptoms. [id number] Harriet mancera MD [address] [address] 05/20/2024 08:07:23 05/20/2024 08:44:08 Diabetes mellitus 06780925 E11.9 He has not been takin his trulicity because of the cost so we will switch him to victoza [id number] Harriet mancera MD [address] [address] 07/02/2024 15:49:00 07/02/2024 16:16:34 Acute right otitis media 382300485 H66.91 [id number] Harriet mancera MD [address] [address] 08/02/2024 08:17:16 08/02/2024 08:53:42 Diabetes mellitus 91295908 E11.9 Acute bact erial bronchitis 145670406 J20.8 B96.89 5419809 [id number] Harriet mancera MD [address] [address] 11/02/2024 09:03:12 11/02/2024 09:58:32 Acute diarrhea 660996086 R19.7 48180 Pt is to take GI Profile before starting antibiotic s Diabetes mellitus 077015 09 E11.9 [id number] Harriet mancera MD On license of [facility] [address] [place] [address] 11/05/2024 09:39:36 11/05/2024 10:07:37 Enteric campylobacteriosis 91451431 A04.5 284678 stop cipro and start on the zithromax Acute diarrhea 859834460 R19.7 Pt is to take GI Profile before starting antibiotic s [id number] Harriet mancera MD On license of [facility] [address] [place] [address] 11/11/2024 13:01:33 11/11/2024 13:29:22 Polyneuropathy 13063181 G62.9 46658 Uncontroll ed type 2 diabetes mellitus 119312680 E11.65 33592099 pt informed to keep blood glucose down below 200 Eruption 731016126 R21 16179 Herpes zoster 9315732 B0 2.9 51826330 [id number] Harriet mancera MD On license of [facility] [address] [place] [address] 11/15/2024 09:34:29 11/15/2024 10:11:06 Diabetes mellitus 16675999 E11.9 His sugars are still running between 250 and 350 mg/dL. He is going to be checking his sugars every 1-2 hours and using his Humalog sliding scale. I told him to improve his neuropathy type pain he needs to improve his sugars. He is in agreement and he is going to try and do that. [id number] Harriet mancera MD On license of [facility] [address] [place] [address] 12/13/2024 13:27:15 12/13/2024 14:12:09 Paresthesia of hand 239496692 R20.2 945743 Paresthesi a of lower extremity 152669308 R20.2 077443 Weakness o f bilateral lower limb 6744380345 89430 R29.898 79708371 [id number] Harriet mancera MD On license of [facility] [address] [place] [address] 01/06/2025 09:06:45 01/06/2025 09:42:36 Cellulitis of left lower limb 5033640192 8284117 L03.722 [id number] Goals Section Goal Description Progress Status Start [...] Sravani Montez Not Available 11/25/2024 18: 26:59 Advance Directives Directive N: Payers Insurance Date Sequence Insurance Name Policy Number Policy Riggs Covered Member ID Riggs Member ID Guarantor Name 01/12/[address] [facility] (MEDICARE REPLACEMENT/AD VANTAGE - HMO) [id number] Alec Ramirez [id number] Alec Ramirez 06/30/2023 1 [place] [id number] Alec Ramirez [id number] Alec Ramirez 05/10/2024 1 [employer] (MEDICARE REPLACEMENT/AD VANTAGE - HMO) Alec Ramirez [id number] Alec Ramirez 02/28/2023 [place] [id number] Alec Ramirez [id number] Alec Ramirez 02/28/2023 1 [employer] (PPO) [id number] Alec Ramirez [id number] Alec Ramirez 12/18/2018 1 *SELF PAY* Zahra Ramirez 02/28/2023 1 [place] [id number] Alec Ramirez [id number] Alec Ramirez 05/21/2016 1 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 Shearer is here to follow up on the following: Mr. Ramirez is a 59-year-old male who is here for 3 weeks of watery diarrhea. He says that he has had copious watery bowel movements that are extremely foul-smelling. At times he has had chills and abdominal cramping. He says that he will have these episodes for 4 to 5 days in a row accompanied with nausea and vomiting, and then he will be well for 2 to 3 days and then it will start over again. 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 He has had 2 episodes of E. coli and norovirus in the past. His GI profile came back showing Campylobacter. We had started him on Cipro, but he said that he is having trouble taking it. Will switch his antibiotic to azithromycin and have him take that for 5 days. Encouraged him to drink lots and lots of fluids because his weight is down 7 pounds over the last 3 days. We also talked about bland diet. If he has any other trouble he is to call us back. Harriet sandy MD [facility] [place] [address], [place], [address], [place] - [facility] 11/05/2024 10:08:18 11/11/2024 text/html Mr. Ramirez is a 59-year-old man who is here with a 2 to 3-day history of rash on his right ear. He said that form several blisters and then they popped and he has had some serous drainage from the area with surrounding erythema. He recently was diagnosed with a Campylobacter infection secondary to food poisoning from a truck stop. He was treated with Cipro but was having side effects from the medication so we changed him to azithromycin. He said while he was on the antibiotics he developed numbness and tingling in his feet and was having trouble with weakness in his legs. He said that he had to use a walker to balance himself, and felt like his gait was very unsteady. He said now that is improving. He says now he can walk without steadying himself but still has some residual numbness in his feet. I wonder if he developed a mild case of Guillain-Botello secondary to his postviral course. Seems how it is improving hopefully it will go to complete resolution. Will treat him with valacyclovir 1 mg 3 times daily for shingles on his right head and have him aggressively treat his sugars and getting good glucose control with his insulin. Will follow back up on Friday. Harriet sandy MD [address], [place], [address], [facility] 11/11/2024 13:30:24 11/15/2024 text/html Mr. Ramirez is a 59-year-old man who is here for recheck on his diabetes. He had episode of Campylobacter gastritis and gastroenteritis, and was treated with azithromycin. He says his diarrhea has now resolved. He is just having trouble with numbness and tingling in his hands and feet bilaterally and in the stocking and glove distribution. His sugars have been running over 300 most of the time. Harriet sandy MD [address], [place], [address], [facility] 11/15/2024 11:12:14 12/13/2024 text/html Mr. Ramirez is a 59-year-old male who is complaining of some bilateral leg and hand weakness as well as decrease in sensation in a stocking glove type distribution for 2 weeks now. He said that he had a viral illness which shortly thereafter he started with some significant symptoms. He says the symptoms are improved but they are still persistent. He said that he has profound founder president and ceo strength weakness with his right hand, and has been having to use a cane or a walker at home for stability. He says he is getting some sensation back in the bottoms of his feet so he can tell where his feet are, but still has persistent weakness. His proximal weakness seems to be spared but his distal weakness seems to be most profound. He is not having any bowel or bladder symptoms. Has not had any fevers. Harriet sandy MD [address], [place], [address], [facility] 12/13/2024 15:11:47 01/06/2025 text/html Mr. Ramirez is a 59-year-old [...] leg and arm weakness. Harriet sandy MD [facility] [address], [place], [address], [facility] - [facility] 01/06/2025 09:40:12
--- OUTSIDE RECORDS SUMMARY | 2025-01-14 07:56 | XMS_ITS | Continuity of Care Document ---
Author Organization [employer], To [facility] Address [address] [place] [address] Care Team Providers Care Bin Worker Name Role Phone HARRIET LOCKHART Primary Care Provider VANDANA MCFARLAND OTHER Assessment No assessment recorded. Plan of Treatment Reminders Order Date Submit Date Provider Last Modified By Organization Details Last Modified Time Details Appointments None recorded. Lab CK (creatine kinase), total, serum 2024 025 [place], [address], [address], [place], [address], 5 12:11:57 erythrocyte sedimentati on rate by westergren method 2024 025 [place] [facility], [address], [address], [place], [address], 5 12:11:56 C reactive protein, QN, serum or plasma 2024 025 [place] [facility], [address], [address], [place], [address], 5 12:11:57 Referral None recorded. Procedures None recorded. Surgeries None recorded. Imaging MRI, cervical spine, w/o contrast 2024 025 [email or web address] [facility] (Scheduling), [address], [place], [address], 5 15:55:06 Medication Orders None recorded. Patient TargetsNo targets recorded. Patient InstructionsNo instructions recorded. Reason for Referral None Reported. Results Created Date Observation Date Name Description Value Unit Range Abnormal Flag Note LastModifiedBy Organization Detail LastModifiedTime 12/14/1912/14/2024 SEDIM ENTAT ION RATE- WESTE RGREN sedimentatio n rate-westerg karen 10 mm/HR 0-30 normal Not Available [facility] ([facility]) [address] [place], [address], 12/14/2024 12:11:56 12/14/1912/14/2024 CREAT INE KINAS E,TOT AL creatine kinase,total 83 U/L 41-331 normal Not Available [facility] ([facility]) [address] [place], [address], 12/14/2024 12:11:56 12/14/1912/14/2024 C-GARCÍA CTIVE PROTE IN, QUANT C-reactive protein, quant 1 mg/L 0-10 normal Not Available [facility] ([facility]) [address] [place], [address], 12/14/2024 12:11:57 Result Notes None recorded. Problems Name Problem SNOMED Code Status Onset Date Resolution Date Notes Provider Name and Address Organization Details Recorded Time Exposure to SARS-CoV -2 Completed 09/16/2019 Removal Reason: Problem added by user from the COVID-19 watch flag Sravani Montez RN [address], [place], [address] , [place] - [facility] 0 10:59:41 Diabetes mellitus 44575942 Active 2015 Not Available [facility] 2 04:29:02 Body mass index 30+ - obesity 317435075 Active 2015 Not Available [facility] 2 04:29:02 Myocardi al infarcti on 10722852 Active 2015 Not Available [facility] 2 04:29:02 Heart disease 23458904 Active 2015 Not Available [facility] 2 04:29:02 Polyp of colon 27557669 Active 2016 f/u due 5 yrs Oct 2021 Not Available [facility] 2 04:29:02 Immuniza tion refused Active 2016 Not Available [facility] 2 04:29:02 History of tobacco use 70358597418 03 Active 2017 Not Available [facility] 2 04:29:02 Retinopa thy due to diabetes mellitus 4349194 Active 2018 Not Available [facility] 2 04:29:02 COVID-19 147954671 Active 2020 Not Available [facility] 2 04:29:02 Problem Notes None recorded. Procedures Surgical History Date Name Laterality Status Provider Name and Address Organization Details Recorded Time 01/13/20 Advance Care Planning completed Natalia Camargo [place] - [facility] 01/13/2024 10:52:03 01/13/20 24 Functional Status Assessed completed Natalia Camargo [place] - [facility] 024 10:52:03 01/01/20 22 A1C level 7.0 to 7.9 completed Analia Burr [place] - [facility] 12/31/2021 09:01:48 10/02/19 A1C level 7.0 to 7.9 completed Analia Burr [place] - [facility] 10/01/2021 08:51:59 07/20/19 A1C level 9.1 and above completed Analia Burr [place] - [facility] 07/19/2021 13:28:30 05/29/19 A1C level 9.1 and above completed Analia Burr [place] - [facility] 05/28/2021 14:15:47 10/03/19 A1C level 9.1 and above completed Analia Burr [place] - [facility] 10/02/2020 15:46:38 01/07/20 Systolic B/P less than 130 mm Hg completed Analia WINTERS - [facility] 01/07/2020 15:58:50 01/07/20 Diastolic B/P 80-89 mm Hg completed Analia Burr [place] - [facility] 01/07/2020 15:58:53 10/16/20 20 A1C level 7.0 to 7.9 completed [...] to 90 mm Hg completed Fatoumata Sneed [place] - [facility] 12/04/2018 08:58:30 12/05/19 19 Systolic B/P 130-139 mm Hg completed Fatoumata Sneed [place] - [facility] 12/04/2018 08:58:19 11/13/19 17 Colonoscopy completed Jay Cesar RN [address], [place], [address], [facility] - [facility] 04/13/2018 09:58:41 CABG completed Caorlina Sosa [place] - [facility] 1 04/02/2015 08:36:22 biopsy of prostate completed Sravani Montez RN [address], [place], [address], [facility] - [facility] 03/09/2019 14:21:52 Imaging Results None [...] nued on: 09/06/19 15 10:29AM; User: radha Hickmani on: 09/12/19 15;Print ed: 06/14/19 15 [...] ser: [email or web address];In dication : Hyperten silvino - (07.4019 00) Not Available Not Available Not Available dexametha [...] completed Not Available Not Available Not Available [place] 5 mg-325 mg tablet Take 1 tablet [...] Disconti nued on: 04/21/19 15 9:01AM;U ser: [email or web address] p;Printe d: 03/04/20 14 Not Available Not Available Not Available [place] 09/14 completed [place] oral;Rec orded Status: Recorded on: 12/10/19 15 9:12AM;D iscontin ued Status: Disconti nued on: 09/15/19 16 2:09PM;U ser: [email or web address];In dication : Pain - (16.7809 00) Not [...] Status: Disconti nued on: 03/07/20 11:11AM; User: radha Skelton d: 11/19/19 15 Not Available Not Available Not Available OneTouch UltraMini dx e11.9, check fsbg once a day 2014 active OneTouch UltraMin i test strip miscella neous kit;Rei rded Status: Recorded on: 03/07/20 11:11AM; User: radha Lewis tion: - (-5);Erika nted: 03/07/20 15 Not Available Not Available Not Available Lantus [...] 16;Indic ation: Type 2 Diabetes Mellitus - (2500 00);Prin jonathan: 02/03/20 15 Not Available Not Available [...] Available Not Available Not Available Dexcom G6 Forest[employer] Pruner USE DIRECTED active Not Available Not Available No t Available Dexcom G6 Transmitt er device USE DIRECTED 2022 active Not Available Not Available Not Avai lable FreeStyle Carlos 14 Day [place]mark USE DIRECTED active Not Available Not Available [...] Available Not Available Not Available casirivim ab ([id number]) 120 mg/mL intraveno us solution (1 [...] Updated DateTime 5 193.04 cm 37.5 kg/m2 383264. 45 g 97.5 [degF] 82 /min 99 % 99 % 16 /min 0 132/80 mm[Hg] Natalia Camargo [place] - [facility] 5 13:31:37 Social History Question Answer Notes LastModified by [...] Of Your Most Recent Tobacco Screening? 12/13/2024 [email or web address] Information not available 12/13/2024 How Many Children [...] Date Was Tobacco Cessation Counseling Provided? 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 Information not available 02/05/2016 Do you [...] available 01/22 09:00:16 Medical History Condition Response Myocardial Infarction Y Vitamin D Deficiency Y Diabetes Y Immunizations Vaccine Type Date Status Note Provider Name and Address Organization Details Recorded Time Tdap 015 completed Not Available [facility] 02/28/2023 15:05:32 COVID-19, mRNA, LNP-S, PF, 100 mcg/0.5mL dose or 50 mcg/0.25mL dose completed Analia Burr [place], [place] - [facility] 03/27/2021 10:59:29 COVID-19, mRNA, LNP-S, PF, 100 mcg/0.5mL dose or 50 mcg/0.25mL dose completed Sravani Montez RN [address], [place], [address], [facility] - [facility] 05/28/2021 15:59:24 Influenza, split virus, quadrivalent, PF cancelled patient objection Harriet espana MD [address], [place], [address], [facility] 12/31/2021 09:29:59 pneumococcal polysaccharide PPV23 015 completed Not Available [facility] 02/28/2023 15:05:32 Past Encounters Encounter ID Performer Location Encounter Start Date Encounter Closed Date Diagnosis/Indication Diagnosis SNOMED-CT Code Diagnosis ICD10 Code Diagnosis IMO Codes Diagnosis Note [id number] Harriet mancera MD [facility] [address] [place] [address] 11/15/2024 09:34:29 11/15/2024 10:11:06 Diabetes mellitus 38516973 E11.9 His sugars are still running between 250 and 350 mg/dL. He is going to be checking his sugars every 1-2 hours and using his Humalog sliding scale. I told him to improve his neuropathy type pain he needs to improve his sugars. He is in agreement and he is going to try and do that. [id number] Harriet mancera MD [facility] [address] [place] [address] 12/13/2024 13:27:15 12/13/2024 14:12:09 Paresthesia of hand 303554515 R20.2 859217 Paresthesi a of lower extremity 873612023 R20.2 712463 Weakness o f bilateral lower limb 2834263734 54696 R29.898 [id number] Goals Section Goal Description Progress Status Start [...] Member ID Riggs Member ID Guarantor Name 12/13/2024 1 [facility] (MEDICARE REPLACEMENT/A DVANTAGE - HMO) [id number] Alec Ramirez [id number] Alec Ramirez Notes Date Note Type Note Provider Name and Address Organization Details Recorded Time 12/13/2024 text/html Mr. Ramirez is a 59-year-old [...] persistent. He said that he has profound compressor battery pellets strength weakness with his right hand, and [...] had any fevers. Harriet sandy MD [address], [place], [address], [place] [facility] 12/13/2024 15:11:47
--- OUTSIDE RECORDS SUMMARY | 2025-01-14 07:56 | XMS_ITS | Continuity of Care Document ---
Author Organization [employer], [facility] Address [address] [place] [address] Care Team Providers Care Student Loan Counselor Name Role Phone HARRIET LOCKHART Primary Care Provider [phone] VANDANA MCFARLAND OTHER [phone] Assessment No assessment recorded. Plan of Treatment Reminders Order Date Submit Date Provider Last Modified By Organization Details Last Modified Time Details Appointments None record ed. Lab None record ed. Referral None record ed. Procedures None record ed. Surgeries None record ed. Imaging None record ed. Medication Orders None record ed. Patient TargetsNo targets recorded. Patient InstructionsNo instructions recorded. Reason for Referral None Reported. Results Created Date Observation Date Name Description Value Unit Range Abnormal Flag Note LastModifiedBy Organization Detail LastModifiedTime 11/03/1911/03/2024 CMP14 +EGFR glucose 228 mg/dL 70-99 above high normal Not Available [facility] ([facility]) [address] [place], [address], 11/03/2024 09:12:57 11/03/19 25 11/03/2024 CMP14 +EGFR BUN 16 mg/dL 6-24 normal Not Available [facility] ([facility]) [address] [place], [address], 11/03/2024 09:12:57 11/03/19 25 11/03/2024 CMP14 +EGFR creatinine 0.82 mg/dL 0.76-1 .27 normal Not Available [facility] ([facility]) [address] [facility] [place], [address], 11/03/2024 09:12:57 11/03/1911/03/2024 CMP14 +EGFR eGFR 101 mL/mi n/1.7 3 >59 normal Not Available [facility] ([facility]) [address] [facility], [place], [address], 11/03/2024 09:12:57 11/03/1911/03/2024 CMP14 +EGFR BUN/creatini ne ratio 20 9-20 normal Not Available [facility] ([facility]) [address] [facility], [place], [address], 11/03/2024 09:12:57 11/03/1911/03/2024 CMP14 +EGFR sodium 140 mmol/ L 134-14 4 normal Not Available [facility] ([facility]) [address] [place], [address], 11/03/2024 09:12:57 11/03/1911/03/2024 CMP14 +EGFR potassium 4.4 mmol/ L 3.5-5. 2 normal Not Available [facility] ([facility]) [address] [facility], [place], [address], 11/03/2024 09:12:57 11/03/1911/03/2024 CMP14 +EGFR chloride 103 mmol/ L 96-106 normal Not Available [facility] ([facility]) [address] [place], [address], 11/03/2024 09:12:57 11/03/1911/03/2024 CMP14 +EGFR carbon dioxide, total 19 mmol/ L 20-29 below low normal Not Available [facility] ([facility]) [address] [place], [address], 11/03/2024 09:12:57 11/03/1911/03/2024 CMP14 +EGFR calcium 10.0 mg/dL 8.7-10 .2 normal Not Available [facility] ([facility]) [address] [place], [address], 11/03/2024 09:12:57 11/03/1911/03/2024 CMP14 +EGFR protein, total 6.8 g/dL 6.0-8. 5 normal Not Available [facility] ([facility]) [address] [place], [address], 11/03/2024 09:12:57 11/03/1911/03/2024 CMP14 +EGFR albumin 3.9 g/dL 3.8-4. 9 normal Not Available [facility] ([facility]) [address] [place], [address], 11/03/2024 09:12:57 11/03/1911/03/2024 CMP14 +EGFR globulin, total 2.9 g/dL 1.5-4. 5 Not Available [facility] ([facility]) [address] [place], [address], 11/03/2024 09:12:57 11/03/1911/03/2024 CMP14 +EGFR bilirubin, total 0.5 mg/dL 0.0-1. 2 normal Not Available [facility] ([facility]) [address] [facility] [place], [address], 11/03/2024 09:12:57 11/03/1911/03/2024 CMP14 +EGFR alkaline phosphatase 100 IU/L 44-121 normal Not Available [facility] [address] [facility] [place], [address], 11/03/2024 09:12:57 11/03/1911/03/2024 CMP14 +EGFR AST (SGOT) 16 IU/L 0-40 normal Not Available [facility] ([facility]) [address] [facility] [place], [address], 11/03/2024 09:12:57 11/03/1911/03/2024 CMP14 +EGFR ALT (SGPT) 21 IU/L 0-44 normal Not Available [facility] ([facility]) [address] [facility] [place], [address], 11/03/2024 09:12:57 11/03/1911/03/2024 CBC WITH DIFFE RENTI AL/PL ATELE T WBC 7.1 x10e3 /uL 3.4-10 .8 normal Not Available [facility] ([facility]) [address] [facility] [place], [address], 11/03/2024 09:12:57 11/03/1911/03/2024 CBC WITH DIFFE RENTI AL/PL ATELE T RBC 4.69 x10e6 /uL 4.14-5 .80 normal Not Available [facility] ([facility]) [address] [facility], [place], [address], 11/03/2024 09:12:57 11/03/1911/03/2024 CBC WITH DIFFE RENTI AL/PL ATELE T hemoglobin 13.7 g/dL 13.0-1 7.7 normal Not Available [facility] ([facility]) [address] [place], [address], 11/03/2024 09:12:57 11/03/1911/03/2024 CBC WITH DIFFE RENTI AL/PL ATELE T hematocrit 43.2 % 37.5-5 1.0 normal Not Available [facility] ([facility]) [address] [place], [address], 11/03/2024 09:12:57 11/03/1911/03/2024 CBC WITH DIFFE RENTI AL/PL ATELE T MCV 92 fL 79-97 normal Not Available [facility] ([facility]) [address] [place], [address], 11/03/2024 09:12:57 11/03/1911/03/2024 CBC WITH DIFFE RENTI AL/PL ATELE T MCH 29.2 pg 26.6-3 3.0 normal Not Available [facility] ([facility]) [address] [facility], [place], [address], 11/03/2024 09:12:57 11/03/1911/03/2024 CBC WITH DIFFE RENTI AL/PL ATELE T MCHC 31.7 g/dL 31.5-3 5.7 normal Not Available [facility] ([facility]) [address] [facility], [place], [address], 11/03/2024 09:12:57 11/03/1911/03/2024 CBC WITH DIFFE RENTI AL/PL ATELE T RDW 13.1 % 11.6-1 5.4 Not Available [facility] ([facility]) [address] [facility], [place], [address], 11/03/2024 09:12:57 11/03/1911/03/2024 CBC WITH DIFFE RENTI AL/PL ATELE T platelets 204 x10e3 /uL 150-45 0 normal Not Available [facility] ([facility]) [address] [facility], [place], [address], 11/03/2024 09:12:57 11/03/1911/03/2024 CBC WITH DIFFE RENTI AL/PL ATELE T neutrophils 57 % not estab. normal Not Available [facility] ([facility]) [address] [facility], [place], [address], 11/03/2024 09:12:57 11/03/1911/03/2024 CBC WITH DIFFE RENTI AL/PL ATELE T lymphs 29 % not estab. normal Not Available [facility] ([facility]) [address] [place], [address], 11/03/2024 09:12:57 08/12/20 25 11/03/2024 CBC WITH DIFFE RENTI AL/PL ATELE T monocytes 12 % not estab. normal Not Available [facility] ([facility]) [address] [facility], [place], [address], 11/03/2024 09:12:57 11/03/19 25 11/03/2024 CBC WITH DIFFE RENTI AL/PL ATELE T eos 1 % not estab. normal Not Available [facility] ([facility]) [address] [facility], [place], [address], 11/03/2024 09:12:57 11/03/1911/03/2024 CBC WITH DIFFE RENTI AL/PL ATELE T basos 0 % not estab. normal Not Available [facility] ([facility]) [address] [facility], [place], [address], 11/03/2024 09:12:57 11/03/1911/03/2024 CBC WITH DIFFE RENTI AL/PL ATELE T immature cells GUNNER'S MATE M Not Available [facility] ([facility]) [address] [place], [address], 11/03/2024 09:12:57 11/03/1911/03/2024 CBC WITH DIFFE RENTI AL/PL ATELE T neutrophils (absolute) 4.1 x10e3 /uL 1.4-7. 0 normal Not Available [facility] ([facility]) [address] [facility], [place], [address], 11/03/2024 09:12:57 11/03/1911/03/2024 CBC WITH DIFFE RENTI AL/PL ATELE T lymphs (absolute) 2.0 x10e3 /uL 0.7-3. 1 normal Not Available [facility] ([facility]) [address] [place], [address], 11/03/2024 09:12:57 11/03/1911/03/2024 CBC WITH DIFFE RENTI AL/PL ATELE T monocytes(ab solute) 0.8 x10e3 /uL 0.1-0. 9 normal Not Available [facility] ([facility]) [address] [facility], [place], [address], 11/03/2024 09:12:57 11/03/1911/03/2024 CBC WITH DIFFE RENTI AL/PL ATELE T eos (absolute) 0.1 x10e3 /uL 0.0-0. 4 normal Not Available [facility] ([facility]) [address] [facility], [place], [address], 11/03/2024 09:12:57 11/03/1911/03/2024 CBC WITH DIFFE RENTI AL/PL ATELE T baso (absolute) 0.0 x10e3 /uL 0.0-0. 2 normal Not Available [facility] ([facility]) [address] [facility], [place], [address], 11/03/2024 09:12:57 11/03/1911/03/2024 CBC WITH DIFFE RENTI AL/PL ATELE T immature granulocytes 1 % not estab. Not Available [facility] ([facility]) [address] [facility], [place], [address], 11/03/2024 09:12:57 11/03/1911/03/2024 CBC WITH DIFFE RENTI AL/PL ATELE T immature grans (abs) 0.1 x10e3 /uL 0.0-0. 1 Not Available [facility] ([facility]) [address] [place], [address], 11/03/2024 09:12:57 11/03/19 25 11/03/2024 CBC WITH DIFFE RENTI AL/PL ATELE T NRBC GUNNER'S MATE M Not Available [facility] ([facility]) [address] [place], [address], 11/03/2024 09:12:57 08/12/20 25 11/03/2024 CBC WITH DIFFE RENTI AL/PL ATELE T hematology comments: GUNNER'S MATE M Not Available [facility] ([facility]) [address] [place], [address], 11/03/2024 09:12:57 11/03/19 25 11/03/2024 GI PROFI LE, STOOL , PCR campylobacte r Detect ed not detect ed abnormal Not Available [facility] ([facility]) [address] [place], [address], 11/03/2024 22:07:59 11/03/19 25 11/03/2024 GI PROFI LE, STOOL , PCR C difficile toxin A/B Not Detect ed not detect ed Not Available [facility] ([facility]) [address] [place], [address], 11/03/2024 22:07:59 11/03/19 25 11/03/2024 GI PROFI LE, STOOL , PCR plesiomonas shigelloides Not Detect ed not detect ed Not Available [facility] ([facility]) [address] [place], [address], 11/03/2024 22:07:59 11/03/19 25 11/03/2024 GI PROFI LE, STOOL , PCR salmonella Not Detect ed not detect ed Not Available [facility] ([facility]) [address] [place], [address], 11/03/2024 22:07:59 11/03/19 25 11/03/2024 GI PROFI LE, STOOL , PCR vibrio Not Detect ed not detect ed Not Available [facility] ([facility]) [address] [place], [address], 11/03/2024 22:07:59 11/03/19 25 11/03/2024 GI PROFI LE, STOOL , PCR vibrio cholerae Not Detect ed not detect ed Not Available [facility] ([facility]) [address] [place], [address], 11/03/2024 22:07:59 11/03/19 25 11/03/2024 GI PROFI LE, STOOL , PCR yersinia enterocoliti ca Not Detect ed not detect ed Not Available [facility] ([facility]) [address] [place], [address], 11/03/2024 22:07:59 11/03/19 25 11/03/2024 GI PROFI LE, STOOL , PCR enteroaggreg ative E coli Not Detect ed not detect ed Not Available [facility] ([facility]) [address] [place], [address], 11/03/2024 22:07:59 11/03/19 25 11/03/2024 GI PROFI LE, STOOL , PCR enteropathog enic E coli Not Detect ed not detect ed Not Available [facility] ([facility]) [address] [place], [address], 11/03/2024 22:07:59 11/03/19 25 11/03/2024 GI PROFI LE, STOOL , PCR enterotoxige valente E coli Not Detect ed not detect ed Not Available [facility] ([facility]) [address] [place], [address], 11/03/2024 22:07:59 11/03/19 25 11/03/2024 GI PROFI LE, STOOL , PCR shiga-toxin- producing E coli Not Detect ed not detect ed Not Available [facility] ([facility]) [address] [place], [address], 11/03/2024 22:07:59 11/03/19 25 11/03/2024 GI PROFI LE, STOOL , PCR E coli O157 Not applic able not detect ed Not Available [facility] ([facility]) [address] [place], [address], 11/03/2024 22:07:59 11/03/19 25 11/03/2024 GI PROFI LE, STOOL , PCR shigella/ent eroinvasive E coli Not Detect ed not detect ed Not Available [facility] ([facility]) [address] [place], [address], 11/03/2024 22:07:59 11/03/19 25 11/03/2024 GI PROFI LE, STOOL , PCR cryptosporid ium Not Detect ed not detect ed Not Available [facility] ([facility]) [address] [place], [address], 11/03/2024 22:07:59 11/03/19 25 11/03/2024 GI PROFI LE, STOOL , PCR cyclospora cayetanensis Not Detect ed not detect ed Not Available [facility] ([facility]) [address] [place], [address], 11/03/2024 22:07:59 11/03/19 25 11/03/2024 GI PROFI LE, STOOL , PCR entamoeba histolytica Not Detect ed not detect ed Not Available [facility] ([facility]) [address] [place], [address], 11/03/2024 22:07:59 11/03/19 25 11/03/2024 GI PROFI LE, STOOL , PCR giardia lamblia Not Detect ed not detect ed Not Available [facility] ([facility]) [address] [place], [address], 11/03/2024 22:07:59 11/03/19 25 11/03/2024 GI PROFI LE, STOOL , PCR adenovirus F 40/41 Not Detect ed not detect ed Not Available [facility] ([facility]) [address] [place], [address], 11/03/2024 22:07:59 11/03/19 25 11/03/2024 GI PROFI LE, STOOL , PCR astrovirus Not Detect ed not detect ed Not Available [facility] ([facility]) [address] [facility], [place], [address], 11/03/2024 22:07:59 11/03/19 25 11/03/2024 GI PROFI LE, STOOL , PCR norovirus GI/gii Not Detect ed not detect ed Not Available [facility] ([facility]) [address] [facility], [place], [address], 11/03/2024 22:07:59 11/03/19 25 11/03/2024 GI PROFI LE, STOOL , PCR rotavirus A Not Detect ed not detect ed Not Available [facility] ([facility]) [address] [facility], [place], [address], 11/03/2024 22:07:59 11/03/19 25 11/03/2024 GI PROFI LE, STOOL , PCR sapovirus Not Detect ed not detect ed Not Available [facility] ([facility]) [address] [facility], [place], [address], 11/03/2024 22:07:59 11/03/19 25 11/02/2024 hemog lobin (Hb), finge rstic k, blood HGB 12.[address], [place], [address], 11/02/2024 09:26:12 11/03/19 25 11/02/2024 HbA1c (hemo globi n A1c), blood HbA1C 9.4 % Not Available [facility] [address] [place] [address], [place], [address], 11/02/2024 09:20:34 11/03/19 25 11/02/2024 gluco se, finge rstic k, blood Blood Glucose: mg/dl 219 Not Available [facility] [place] [address], [place], [address], 11/02/2024 09:20:49 0811/02/2024 gluco se, finge rstic k, blood Reference Range (60-100) abnorm al Not Available [facility] [address], [place], [address], 11/02/2024 09:20:49 11/12/19 25 11/14/2024 AEROB IC BACTE RIAL CULTU RE aerobic bacterial culture Final report Not Available [facility] ([facility]) [address] [place], [address], 11/17/2024 13:29:48 11/12/1911/14/2024 AEROB IC BACTE RIAL CULTU RE result 1 Mixed skin jose juan Not Available [facility] ([facility]) [address] [facility], [place], [address], 11/17/2024 13:29:48 Result Notes None recorded. Problems Name Problem SNOMED Code Status Onset Date Resolution Date Notes Provider Name and Address Organization Details Recorded Time Exposure to SARS-CoV -2 Completed 09/16/2019 Removal Reason: Problem added by user from the COVID-19 watch flag Sravani Montez RN [address], [place], [address] , [place] - [facility] 0 10:59:41 Diabetes mellitus 94344326 Active 2015 Not Available [facility] 2 04:29:02 Body mass index 30+ - obesity 365605217 Active 2015 Not Available [facility] 2 04:29:02 Myocardi al infarcti on 94931146 Active 2015 Not Available [facility] 2 04:29:02 Heart disease 89091257 Active 2015 Not Available [facility] 2 04:29:02 Polyp of colon 71964060 Active 2016 f/u due 5 yrs Oct 2021 Not Available [facility] 2 04:29:02 Immuniza tion refused Active 2016 Not Available [facility] 2 04:29:02 History of tobacco use 24917155497 03 Active 2017 Not Available [facility] 2 04:29:02 Retinopa thy due to diabetes mellitus 3412168 Active 2018 Not Available [facility] 2 04:29:02 COVID-19 851109001 Active 2020 Not Available [facility] 2 04:29:02 Problem Notes None recorded. Procedures Surgical History Date Name Laterality Status Provider Name and Address Organization Details Recorded Time 01/13/20 Advance Care Planning completed Nataliarosaura Camargo [place] - [facility] 01/13/2024 10:52:03 01/13/20 Functional Status Assessed completed Natalia Raman [place] - [facility] 024 10:52:03 01/01/20 A1C level 7.0 to 7.9 completed Analia Ndiayee [place] - [facility] 12/31/2021 09:01:48 10/02/19 A1C level 7.0 to 7.9 completed Analia Ndiayee [place] - [facility] 10/01/2021 08:51:59 07/20/19 A1C [...] completed Analia Ndiayee [place] - [facility] 10/04/2019 11:28:16 09/17/19 20 [...] B/P 80-89 mm Hg completed Analia Burr [place] - [facility] 01/11/2019 16:27:51 01/12/20 19 Systolic B/P greater than or equal to 140 mm Hg completed Analia Burr [place] - [facility] 01/11/2019 16:27:47 12/19/19 19 Diastolic B/P greater than or equal to 90 mm Hg completed Analia Burr [place] - [facility] 12/18/2018 11:10:57 12/19/19 19 Systolic B/P greater than or equal to 140 mm Hg completed Analia Burr [place] - [facility] 12/18/2018 11:11:05 12/05/19 19 Diastolic B/P greater than or equal to 90 mm Hg completed Fatoumata Sneed [place] - [facility] 12/04/2018 08:58:30 12/05/19 19 Systolic B/P 130-139 mm Hg completed Fatoumata Sneed [facility] 12/04/2018 08:58:19 11/13/19 17 Colonoscopy completed Jay Cesar RN [address], [place], [address], [facility] - [facility] 04/13/2018 09:58:41 CABG completed Carolina Sosa [facility] 1 04/02/2015 08:36:22 biopsy of prostate completed Sravani Montez RN [address], [place], [address], [facility] - [facility] 03/09/2019 14:21:52 [...] 10/10/19 14;Indic ation: Contact Dermatit is - ([phone]);Prin jonathan: 09/30/19 14 Not Available Not Available [...] nued on: 09/06/19 15 10:29AM; User: [email or web address] De Luna on: 09/12/19 15;Print ed: 06/14/19 15 Not [...] completed Not Available Not Available Not Available [place] 5 mg-325 mg tablet Take 1 tablet [...] Disconti nued on: 06/14/19 15 10:58AM; User: [email or web address] p;Est. Completi on: 08/20/19 15;Print ed: 04/21/19 15 [...] 14 Not Available Not Available Not Available [place] 09/14 completed [place] oral;Rec orded Status: Recorded on: 12/10/19 15 9:12AM;D iscontin ued Status: Disconti nued on: 09/15/19 16 2:09PM;U ser: [email or web address];In dication : Pain - ([phone]) Not Available Not Available Not Available [...] Status: Disconti nued on: 05/19/19 10:45AM; User: [email or web address] Not Available Not Available Not Available Solu-Medr ol (PF) 125 mg/2 mL solution for injection 2 ml IM for one dose 05/20 completed Not Available Not Available Not Available acidophil us 100 million cell-pect in, citrus 10 mg capsule Take 1 capsule every day by oral route. 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 34 g 97.3 [degF] 16 /min 0 99 % 99 % 74 /min 136/80 mm[Hg] Sravani Montez RN [address], [address] [place], [place] - [facility] 5 09:37:26 Social History Question Answer Notes LastModified by Organizat ion Details LastModified Time Tobacco Smoking Status Current Some Day Smoker Analia Burr [place], [place] - [facility] 01/07/2020 16:10:08 Do You [...] Of Your Most Recent Tobacco Screening? 12/13/2024 [email or web address] Information not available 12/13/2024 How Many Children [...] Date Was Tobacco Cessation Counseling Provided? 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 Information not available 02/05/2016 Do you have [...] or 50 mcg/0.25mL dose 022 completed Analia [place], [place] - [facility] 03/27/2021 10:59:29 COVID-19, mRNA, LNP-S, PF, 100 mcg/0.5mL dose or 50 mcg/0.25mL dose 022 completed Sravani Montez RN [address], [place], [address], [place] - [facility] 05/28/2021 15:59:24 Influenza, split virus, quadrivalent, PF 022 cancelled patient objection Harriet espana MD [address], [place], [address], [place] - [facility] 12/31/2021 09:29:59 pneumococcal polysaccharide PPV23 015 completed Not Available [facility] 02/28/2023 15:05:32 Past Encounters Encounter ID Performer Location Encounter Start Date Encounter Closed Date Diagnosis/Indication Diagnosis SNOMED-CT Code Diagnosis ICD10 Code Diagnosis IMO Codes Diagnosis Note [id number] Harriet mancera MD [facility] [address] [place] [address] 11/02/2024 09:03:12 11/02/2024 09:58:32 Acute diarrhea 909420540 R19.7 22102 Pt is to take GI Profile before starting antibiotic s Diabetes mellitus 704682 09 E11.9 [id number] Harriet mancera MD [facility] [address] [place] [address] 11/05/2024 09:39:36 11/05/2024 10:07:37 Enteric campylobacteriosis 51715749 A04.5 708931 stop cipro and start on the zithromax Acute diarrhea 502594980 R19.7 Pt is to take GI Profile before starting antibiotic s [id number] Harriet mancera MD [facility] [address] [place] [address] 11/11/2024 13:01:33 11/11/2024 13:29:22 Polyneuropathy 00694115 G62.9 14416 Uncontroll ed type 2 diabetes mellitus 481341407 E11.65 76375028 pt informed to keep blood glucose down below 200 Eruption 319092592 R21 59160 Herpes zoster 7310872 B0 2.9 [id number] Harriet mancera MD [facility] [address] [place] [address] 11/15/2024 09:34:29 11/15/2024 10:11:06 Diabetes mellitus 93620039 E11.9 His sugars are still running between 250 and 350 mg/dL. He is going to be checking his sugars every 1-2 hours and using his Humalog sliding scale. I told him to improve his neuropathy type pain he needs to improve his sugars. He is in agreement and he is going to try and do that. Goals Section Goal Description Progress Status Start [...] Member ID Riggs Member ID Guarantor Name 11/15/[address] [facility] (MEDICARE REPLACEMENT/A DVANTAGE - HMO) [id number] Alec Ramirez [id number] Alec Brown James Notes Date Note Type Note Provider Name and Address Organization Details Recorded Time 11/15/2024 text/html Mr. Ramirez is a 59-year-old [...] time. Harriet sandy MD [address], [place], [address], [facility] - [facility] 11/15/2024 11:12:14
--- OUTSIDE RECORDS SUMMARY | 2025-01-14 07:56 | XMS_ITS | Clinical Summary ---
Author Organization [facility] Address [address] [facility] [address] [place] [phone] Phone Care Team Providers Care Kitchen Lead Name Role Phone Unavailable Primary Care Provider [...] Screening 11/13/2021 Colonoscopy 11/13/2021 11/13/2016 COVID-19 Vaccine (1 - 2024-2 6 season) 2024 Influenza Vaccine (#1) 2024 Meningococcal B Vaccine Aged Out No l onger eligible based on patient's age to complete this topic
== END 2025-01-14 23:59 | disposition home or self-care (01) ==
LOC: RAD 07:53
PROVIDERS: PCP Family Medicine; Visit Provider Family Medicine
DX: R29.898 Other symptoms and signs involving the musculoskeletal system (principal); F40.240 Claustrophobia